=== PATIENT | male | born 1950 ===

== ENCOUNTER 2017-09-15 06:32 | Observation (INO) | payer MEDICARE, OTHER ==
[2017-09-15 06:32] VITALS: PULSE 87
[2017-09-15] MEDS ORDERED: Albuterol-Ipratrop 3 mg / 0.5 (3 ml) UD ONE ×4 (06:41→12:40)
[2017-09-15] MEDS ORDERED: MethylPREDNISolone 40 mg Vial IVP STA (07:21)
--- NOTE | 2017-09-15 07:25 | C.PDOC ---
History Of Present Illness 67 y/o M c PMHx asthma p/w shortness of breath x 1 week. Patient states it began with fever and cough. Fever has since resolved. Cough productive of white sputum, feels congested in chest. Patient denies chest pain, nausea, vomiting, leg swelling. States admitted many times for asthma, never intubated. Time Seen by Provider: 09/15/17 07:11 Chief Complaint (Nursing): Shortness Of Breath Past Medical History Vital Signs: Last Vital Signs Temp 98.6 F 09/15/17 06:44 Pulse 89 09/15/17 09:38 Resp 20 09/15/17 09:38 BP 137/76 09/15/17 09:38 Pulse Ox 95 09/15/17 09:38 - Medical History PMH: Asthma, Atrial Fibrillation, CHF, COPD, HTN Denies: Chronic Kidney Disease Surgical History: Pacemaker Family History: States: No Known Family Hx - Social History Hx Alcohol Use: No Hx Substance Use: No - Immunization History Hx Tetanus Toxoid Vaccination: No Hx Influenza Vaccination: No Hx Pneumococcal Vaccination: No Review Of Systems Except As Marked, All Systems Reviewed And Found Negative. Cardiovascular: Negative for: Chest Pain Gastrointestinal: Negative for: Vomiting Physical Exam - Physical Exam Additional Physical Exam Comments: Gen: NAD Head: NC/AT Eyes: PERRL ENT: MMM. No pharyngeal erythema or exudates Neck: Supple Chest: No tenderness CV: Regular rate Lungs: Tachypneic. Diffuse wheezing. Abd: Soft, distended Back: No CVA tenderness Extremities: No lower leg edema Skin: No rash Neuro: Alert, no focal deficit ED Course And Treatment - Laboratory Results Result Diagrams: 09/15/17 07:41 09/15/17 08:17 O2 Sat by Pulse Oximetry: 96 Medical Decision Making Medical Decision Making: Differential includes COPD, less likely PNA, CHF, ACS. Treat with duonebs x 3 and steroids. Check CXR to rule out PNA. EKG Sinus rhythm, 100 bpm, PVCs. No ST elevations. CXR IMPRESSION: No active pulmonary disease. Mild cardiomegaly and mild pulmonary venous congestion. Patient feels breathing is improved but continues to feel short of breath. Pulse oximetry at 94%. Called Dr. Tuttle for further observation and continuous nebulizer treatments. Disposition Discussed With : Floyd Tuttle - Disposition Disposition: HOSPITALIZED Disposition Time: 09:15 Condition: FAIR Forms: [facility] ([place]) - Clinical Impression Clinical Impression: COPD exacerbation
[2017-09-15] MEDS: Albuterol-Ipratrop 3 mg / 0.5 (3 ml) UD IH SCH ×3 (07:37→08:16)
[2017-09-15 07:47] LABS: BASO # 0.1 K/uL (0.0-0.2); BASO % 0.6 % (0.0-2.0); EOS # 0.5 K/uL (0.0-0.7); EOS % 3.6 % (0.0-4.0); HEMOGLOBIN 14.3 g/dL (12.0-18.0); LYMPH # 1.8 K/uL (1.0-4.3); LYMPH % 13.8 % (20.0-40.0); MEAN CELL VOLUME 90.1 fL (80.0-94.0); MEAN CORPUSCULAR HEMOGLOBIN 31.5 pg (27.0-31.0); MEAN CORPUSCULAR HGB CONC 34.9 g/dL (33.0-37.0); MEAN PLATELET VOLUME 8.2 fL (7.2-11.7); MONO % 7.9 % (0.0-10.0); NEUT # 9.5 K/uL (1.8-7.0); NEUT % 74.1 % (50.0-75.0); RBC 4.55 Mil/uL (4.40-5.90); RED CELL DISTRIBUTION WIDTH 13.9 % (11.5-14.5); WHITE BLOOD COUNT 12.9 K/uL (4.8-10.8)
--- NOTE | 2017-09-15 08:35 | RAD ---
HISTORY: Cough and dyspnea COMPARISON: 11/18/2015. FINDINGS: LUNGS: The lungs are well inflated. There is mild pulmonary venous congestion. No focal consolidation. PLEURA: No significant pleural effusion identified, no pneumothorax apparent. CARDIOVASCULAR: There is mild cardiomegaly. There is stable position of a left-sided AICD. OSSEOUS STRUCTURES: No significant abnormalities. VISUALIZED UPPER ABDOMEN: Normal. OTHER FINDINGS: None. IMPRESSION: No active pulmonary disease. Mild cardiomegaly and mild pulmonary venous congestion.
[2017-09-15 08:45] LABS: ALB/GLOB RATIO 1.1 (1.0-2.1); ALBUMIN 3.9 g/dL (3.5-5.0); ALT/SGPT 20 U/L (21-72); AST/SGOT 33 U/L (17-59); BLOOD UREA NITROGEN 15 mg/dL (9-20); CALCIUM 8.8 mg/dl (8.6-10.4); GFR AFRICAN-AMERICAN > 60; GFR NON-AFRICAN AMERICAN 55
[2017-09-15] MEDS ORDERED: Potassium Chloride 20 mEq ER Tab PO STA (08:48)
[2017-09-15 08:56] LABS: CK-MB 1.44 ng/mL (0.0-3.38)
[2017-09-15] MEDS ORDERED: Potassium Chloride 20 mEq 100 ML ONE (08:59)
[2017-09-15] MEDS ORDERED: Potassium Chloride 20 mEq ER Tab PO ONE (08:59)
--- NOTE | 2017-09-15 10:33 | CP.PCM.HP ---
<Sheeba Kelley - Last Filed: 09/15/17 15:45> History of Present Illness - History of Present Illness History of Present Illness: CC: shortness of breath HPI: Patient is a 67 year old male with past medical history CHF, pacemaker, COPD, asthma, HTN, HLD, hyperthyroidism, and DM complaining of dyspnea and cough for the last week and a half. He came for evaluation today because his shortness of breath has been worsening. Patient has been coughing up white sputum. Denies hemoptysis. Patient has been using his rescue inhaler nearly every hour and nebulizer treatments BID in addition to home oxygen. The patient 's symptoms are worse at night, is unable to sleep flat and uses one pillow at night. Patient can walk about a quarter of a block before he becomes short of breath. Patient reports subjective fevers and sweating at night, uses a fan to sleep at night. 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 Patient currently denies chest pain , palpitations, abdominal pain, n/v, headaches, leg pain/swelling, hemoptysis, dysuria, diarrhea/constipation. PMD: Dr. Tuttle Community Service Officer: Dr. Webber PMH: COPD, asthma, HTN, HLD, hyperthyroidism, and DM PSH: pacemaker 15 years ago, hand surgery 50 years ago Family: Sister of valvular disease at 30y. Brother of [place] at an old age. Daughter has valvular disease. Social: Patient smoked 2 ppd x 50y, quit 6-10 years ago. Patient drank liquor enough to get him drunk once a week, quit 10 years ago. Patient reported daily marijuana use, quit 10 years ago Allergies: Penicillin (told to him by his mother when he was young, unsure what his reaction will be) Medications: Duoneb, Codarone 100mg po daily, Xarelto 15mg po daily, Entresto 45 -51mg po daily, Lasix 40mg po tid, Zebeta 5mg po daily, eplerenone 25mg po daily , Lipitor 40mg po daily, Protonix 40mg po daily, lantus 20units sc daily, synthroid 25mcg daily Present on Admission - Present on Admission Any Indicators Present on Admission: Yes History of Uncontrolled Diabetes: Yes Review of Systems - Constitutional Constitutional: absent: Chills, Fever, Headache, Weakness - EENT Eyes: absent: Change in Vision Ears: absent: Dizziness - Cardiovascular Cardiovascular: Dyspnea, Dyspnea on Exertion. absent: Chest Pain, Edema, Palpitations, Rapid Heart Rate - Respiratory Respiratory: Cough, Dyspnea, Dyspnea on Exertion, Change in Mucous Color (white) . absent: Hemoptysis, Pain with Coughing - Gastrointestinal Gastrointestinal: absent: Abdominal Pain, Constipation, Diarrhea, Nausea, Vomiting - Genitourinary Genitourinary: absent: Dysuria, Hematuria, Pyuria - Integumentary Integumentary: absent: Swelling - Neurological Neurological: absent: Dizziness, Headaches - Endocrine Endocrine: absent: Fatigue, Palpitations Past Patient History - Infectious Disease Hx of Infectious Diseases: None - Past Medical History & Family History Past Medical History?: Yes - Past Social History Smoking Status: Former Smoker - CARDIAC Hx Atrial Fibrillation: Yes Hx Congestive Heart Failure: Yes Hx Hypertension: Yes Hx Pacemaker: Yes - PULMONARY Hx Asthma: Yes Hx Chronic Obstructive Pulmonary Disease (COPD): Yes - NEUROLOGICAL Hx Neurological Disorder: No - HEENT Hx HEENT Problems: No - RENAL Hx Chronic Kidney Disease: No - ENDOCRINE/METABOLIC Hx Endocrine Disorders: Yes Hx Diabetes Mellitus Type 2: Yes - HEMATOLOGICAL/ONCOLOGICAL Hx Blood Disorders: No - INTEGUMENTARY Hx Dermatological Problems: No - MUSCULOSKELETAL/RHEUMATOLOGICAL Hx Musculoskeletal Disorders: No Hx Falls: No - GASTROINTESTINAL Hx Gastrointestinal Disorders: No - GENITOURINARY/GYNECOLOGICAL Hx Genitourinary Disorders: No - PSYCHIATRIC Hx Substance Use: No - SURGICAL HISTORY Hx Surgeries: Yes Other/Comment: Pacemaker insertion - ANESTHESIA Hx Anesthesia: Yes Hx Anesthesia Reactions: No Meds Allergies/Adverse Reactions: Allergies Allergy/AdvReac Type Severity Reaction Status Date / Time Penicillins Allergy Verified 09/15/17 06:47 Physical Exam - Constitutional Appears: No Acute Distress - Head Exam Head Exam: ATRAUMATIC, NORMAL INSPECTION - Eye Exam Eye Exam: EOMI, Normal appearance, PERRL - ENT Exam ENT Exam: Mucous Membranes Moist - Respiratory Exam Respiratory Exam: Decreased Breath Sounds. absent: Rales, Rhonchi, Wheezes - Cardiovascular Exam Cardiovascular Exam: REGULAR RHYTHM, +S1, +S2 - GI/Abdominal Exam GI & Abdominal Exam: Normal Bowel Sounds, Soft. absent: Distended, Firm, Tenderness Additional comments: obese - Extremities Exam Extremities exam: Positive for: normal inspection, pedal pulses present. Negative for: pedal edema, tenderness - Neurological Exam Neurological exam: Alert, Oriented x3 - Psychiatric Exam Psychiatric exam: Normal Affect, Normal Mood - Skin Skin Exam: Dry, Intact, Normal Color, Warm Results - Vital Signs Recent Vital Signs: Last Vital Signs Temp 98.6 F 09/15/17 06:44 Pulse 89 09/15/17 09:38 Resp 20 09/15/17 09:38 BP 137/76 09/15/17 09:38 Pulse Ox 96 09/15/17 09:43 - Labs Result Diagrams: 09/15/17 07:41 09/15/17 08:17 Labs: Laboratory Results - last 24 hr 09/15/17 09/15/17 07:41 08:17 WBC 12.9 H RBC 4.55 Hgb 14.3 Hct 41.0 MCV 90.1 D MCH 31.5 H MCHC 34.9 RDW 13.9 Plt Count 329 D MPV 8.2 Neut % (Auto) 74.1 Lymph % (Auto) 13.8 L [place] % (Auto) 7.9 Eos % (Auto) 3.6 Baso % (Auto) 0.6 Neut # (Auto) 9.5 H Lymph # (Auto) 1.8 [place] # (Auto) 1.0 H Eos # (Auto) 0.5 Baso # (Auto) 0.1 Sodium 143 Potassium 3.2 L Chloride 101 Carbon Dioxide 29 Anion Gap 16 BUN 15 Creatinine 1.3 Est GFR ( Amer) > 60 Est GFR (Non-Af Amer) 55 Random Glucose 152 H Calcium 8.8 Total Bilirubin 0.2 AST 33 ALT 20 L D Alkaline Phosphatase 73 Total Creatine Kinase 180 H CK-MB (Mass) 1.44 Troponin I 0.0210 Total Protein 7.5 Albumin 3.9 Globulin 3.6 Albumin/Globulin Ratio 1.1 Assessment & Plan (1) Dyspnea Assessment and Plan: CHF exacerbation vs. COPD CXR: mild cardiomegaly, mild pulmonary venous congestion In the ED, was given nebulizer x3, solu-medrol 125mg. Troponin: 0.021, f/u x2 BNP: 2009 TSH/Free T4: 4.56, 9.63 Echo: f/u results Cardiology consulted, Dr. Graves; help appreciated Medication/Management: - Duonebs Q4 - Solu-medrol 40mg IV TID - Lasix 40mg IV BID - Spironolactone 25mg PO daily (home medication: eplerenone 25mg po daily) - Crestor 20mg PO HS (home medication: atorvastatin 40mg PO HS) - Continue home medication: amiodarone 100mg po daily, bisoprolol 5mg po daily, Entresto 1 tab PO BID - CXR (repeat in AM, 09/16): f/u results - O2 via nc prn Status: Acute (2) Afib Assessment and Plan: Admitted to telemetry, continue to monitor Continue home medication: Bisoprolol 5mg PO daily Cardiology consulted, Dr. Graves. Help appreciated Status: Acute (3) Diabetes mellitus Assessment and Plan: A1c: 7.5 Continue home insulin: Lantus 20units QAM ISS Hypoglycemic protocol Accuchecks Crestor 20mg PO HS Status: Chronic (4) HTN (hypertension) Assessment and Plan: Admitted to telemetry Cardiology consulted, Dr. Graves. Help appreciated Continue home medication: amiodarone 100mg po daily, bisoprolol 5mg po daily, Entresto 1 tab PO BID Status: Chronic (5) Prophylactic measure Assessment and Plan: DVT: Continue home medication, Xarelto 15mg PO daily GI: Protonix 40mg PO daily Heart healthy diet Status: Acute <Tony Jauregui H - Last Filed: 09/15/17 17:31> Results - Vital Signs Recent Vital Signs: Last Vital Signs Temp 97.9 F 09/15/17 16:02 Pulse 94 H 09/15/17 16:29 Resp 20 09/15/17 16:02 BP 153/89 H 09/15/17 16:02 Pulse Ox 96 09/15/17 16:02 - Labs Result Diagrams: 09/15/17 07:41 09/15/17 08:17 Labs: Laboratory Results - last 24 hr 09/15/17 09/15/17 09/15/17 07:41 08:17 11:56 WBC 12.9 H RBC 4.55 Hgb 14.3 Hct 41.0 MCV 90.1 D MCH 31.5 H MCHC 34.9 RDW 13.9 Plt Count 329 D MPV 8.2 Neut % (Auto) 74.1 Lymph % (Auto) 13.8 L [place] % (Auto) 7.9 Eos % (Auto) 3.6 Baso % (Auto) 0.6 Neut # (Auto) 9.5 H Lymph # (Auto) 1.8 [place] # (Auto) 1.0 H Eos # (Auto) 0.5 Baso # (Auto) 0.1 Sodium 143 Potassium 3.2 L Chloride 101 Carbon Dioxide 29 Anion Gap 16 BUN 15 Creatinine 1.3 Est GFR ( Amer) > 60 Est GFR (Non-Af Amer) 55 POC Glucose (mg/dL) Random Glucose 152 H Hemoglobin A1c 7.5 H Calcium 8.8 Total Bilirubin 0.2 AST 33 ALT 20 L D Alkaline Phosphatase 73 Total Creatine Kinase 180 H CK-MB (Mass) 1.44 Troponin I 0.0210 NT-Pro-B Natriuret Pep 2010 H Total Protein 7.5 Albumin 3.9 Globulin 3.6 Albumin/Globulin Ratio 1.1 Thyroxine (T4) 9.63 TSH 3rd Generation 4.56 09/15/17 09/15/17 09/15/17 12:22 15:21 15:21 WBC RBC Hgb Hct MCV MCH MCHC RDW Plt Count MPV Neut % (Auto) Lymph % (Auto) [place] % (Auto) Eos % (Auto) Baso % (Auto) Neut # (Auto) Lymph # (Auto) [place] # (Auto) Eos # (Auto) Baso # (Auto) Sodium Potassium Chloride Carbon Dioxide Anion Gap BUN Creatinine Est GFR ( Amer) Est GFR (Non-Af Amer) POC Glucose (mg/dL) 183 H Random Glucose Hemoglobin A1c Calcium Total Bilirubin AST ALT Alkaline Phosphatase Total Creatine Kinase 193 H CK-MB (Mass) 1.31 Troponin I 0.0130 NT-Pro-B Natriuret Pep Total Protein Albumin Globulin Albumin/Globulin Ratio Thyroxine (T4) 9.85 TSH 3rd Generation 1.42 09/15/17 16:53 WBC RBC Hgb Hct MCV MCH MCHC RDW Plt Count MPV Neut % (Auto) Lymph % (Auto) [place] % (Auto) Eos % (Auto) Baso % (Auto) Neut # (Auto) Lymph # (Auto) [place] # (Auto) Eos # (Auto) Baso # (Auto) Sodium Potassium Chloride Carbon Dioxide Anion Gap BUN Creatinine Est GFR ( Amer) Est GFR (Non-Af Amer) POC Glucose (mg/dL) 338 H Random Glucose Hemoglobin A1c Calcium Total Bilirubin AST ALT Alkaline Phosphatase Total Creatine Kinase CK-MB (Mass) Troponin I NT-Pro-B Natriuret Pep Total Protein Albumin Globulin Albumin/Globulin Ratio Thyroxine (T4) TSH 3rd Generation Attending/Attestation - Attestation I have personally seen and examined this patient.: Yes I have fully participated in the care of the patient.: Yes I have reviewed all pertinent clinical information: Yes Notes (Text): Medical attending: Patient was seen and examined by me. Agree with the above note by the resident As mentioned above this is a patient with a very significant cardiac history who comes to the hospital with shortness of breath. By the time we saw the patient in the ER he reported some improvement from the interventions of the ER but explained he was still short of breath. CXRAY suggest he does have some pulmonary congestion. Will place on IV lasix and see how he does, repeat portable film tomorrow. Because of his cardiac history will also need to consult his bowling pin refinisher as well. There is also a history of COPD, will place on IV solumedrol as well. Tony Jauregui
[2017-09-15 12:22] LABS: B-TYPE NATRIURETIC PEPTIDE 2010 pg/mL (0-900)
[2017-09-15 12:29] LABS: T4 9.63 ug/dL (5.5-11.0)
[2017-09-15] MEDS: Albuterol-Ipratrop 3 mg / 0.5 (3 ml) UD INH SCH ×4 (12:52→23:45)
[2017-09-15 15:55] LABS: CK-MB 1.31 ng/mL (0.0-3.38); TROPONIN I 0.013 ng/mL (0.00-0.120)
[2017-09-15 16:00] LABS: T4 9.85 ug/dL (5.5-11.0)
[2017-09-15 16:06] VITALS: RESP 20
[2017-09-15] MEDS: Sacubitril/Valsartan 49-51 Tab PO SCH (17:42)
[2017-09-15] MEDS: (Novolin R) Insulin Human Regular 100 units/ml vial SC SCH ×2 (17:44→21:45)
[2017-09-15 21:04] LABS: CK-MB 1.65 ng/mL (0.0-3.38)
[2017-09-15] MEDS: MethylPREDNISolone 40 mg Vial IV SCH (21:50)
[2017-09-16] MEDS: Albuterol-Ipratrop 3 mg / 0.5 (3 ml) UD INH SCH ×5 (03:24→20:19)
[2017-09-16] MEDS: Levothyroxine 25 MCG TAB PO SCH (06:21)
[2017-09-16] MEDS: MethylPREDNISolone 40 mg Vial IV SCH ×3 (06:21→21:07)
--- NOTE | 2017-09-16 08:00 | CP.PCM.PN ---
<Abbey Cardenas - Last Filed: 09/16/17 09:56> Subjective - Date & Time of Evaluation Date of Evaluation: 09/16/17 Time of Evaluation: 07:00 - Subjective Subjective: Medicine Progress Note: Patient was seen and examined at bedside. No acute events overnight. Patient states he is breathing better than when he arrived yesterday. Patient denies chest pain, palpitations, nausea, vomiting, fever, chills, diarrhea or constipation. Objective - Vital Signs/Intake and Output Vital Signs (last 24 hours): Temp Pulse Resp BP Pulse Ox 98.6 F 100 H 20 156/87 H 96 09/16/17 07:00 09/16/17 07:00 09/16/17 07:00 09/16/17 07:00 09/16/17 07:00 - Medications Medications: Current Medications Albuterol/Ipratropium (Duoneb 3 Mg/0.5 Mg (3 Ml) Ud) 3 ml INH RQ4 [facility] Last Admin: 09/16/17 03:24 Dose: Not Given Amiodarone HCl (Cordarone) 100 mg PO DAILY [facility] Bisoprolol Fumarate (Zebeta) 5 mg PO DAILY [facility] Furosemide (Lasix) 40 mg IVP Q12 [facility] Last Admin: 09/15/17 21:51 Dose: 40 mg Insulin Glargine (Lantus) 20 unit SC DAILY [facility] Insulin Human Regular (Novolin R) 0 unit SC ACHS [facility] PRN Reason: Protocol Last Admin: 09/15/17 21:45 Dose: Not Given Levothyroxine Sodium (Synthroid) 25 mcg PO DAILY@0630 [facility] Last Admin: 09/16/17 06:21 Dose: 25 mcg Methylprednisolone (Solu-Medrol) 40 mg IV Q8 [facility] Last Admin: 09/16/17 06:21 Dose: 40 mg Pantoprazole Sodium (Protonix Ec Tab) 40 mg PO DAILY [facility] Rivaroxaban (Xarelto) 15 mg PO DAILY [facility] Rosuvastatin Calcium (Crestor) 20 mg PO HS [facility] Last Admin: 09/15/17 21:50 Dose: 20 mg Sacubitril/Valsartan (Entresto 49 Mg-51 Mg) 1 tab PO BID [facility] Last Admin: 09/15/17 17:42 Dose: 1 tab Spironolactone (Aldactone) 25 mg PO DAILY [facility] - Labs Labs: 06/01/18 07:41 09/15/17 08:17 - Constitutional Appears: No Acute Distress - Head Exam Head Exam: ATRAUMATIC, NORMAL INSPECTION - Eye Exam Eye Exam: EOMI, Normal appearance - ENT Exam ENT Exam: Mucous Membranes Moist - Respiratory Exam Respiratory Exam: Decreased Breath Sounds, NORMAL BREATHING PATTERN - GI/Abdominal Exam GI & Abdominal Exam: Soft, Normal Bowel Sounds. absent: Tenderness - Extremities Exam Extremities Exam: Normal Inspection. absent: Pedal Edema - Neurological Exam Neurological Exam: Alert, Awake, Oriented x3 - Psychiatric Exam Psychiatric exam: Anxious - Skin Skin Exam: Normal Color Assessment and Plan - Assessment and Plan (Free Text) Assessment: Dyspnea CHF exacerbation vs. COPD Chest Xray (09/15/17): mild cardiomegaly, mild pulmonary venous congestion Chest Xray (09/16/17): mild to moderate venous congestion. Small left pleural effusion. Right hilar prominence. Biapical pleural thickening with upper lobe granulomatous changes. Left sideded pacemaker. Mild cardiomegaly. In the ED, was given nebulizer x3, solu-medrol 125mg. Troponin: negative x3 BNP: 2009 TSH/Free T4: 4.56, 9.63 Echo: f/u results Cardiology consulted, Dr. Graves --> help appreciated Medication/Management: - Duonebs Q4 - Solu-medrol 20mg IV TID - Lasix 40mg IV BID - Spironolactone 25mg PO daily (home medication: eplerenone 25mg po daily) - Crestor 20mg PO HS (home medication: atorvastatin 40mg PO HS) - Continue home medication: amiodarone 100mg po daily, bisoprolol 5mg po daily, Entresto 1 tab PO BID - O2 via nc prn History of COPD - See first assessment History of CHF - See first assessment History of Afib Admitted to telemetry, continue to monitor Continue home medication: * Bisoprolol 5mg PO daily * Amiodarone 100mg po daily * Xarelto 15mg PO daily --> not given on 09/15/17 --> nursing communication placed to please give patient his medications. Cardiology consulted, Dr. Graves --> Help appreciated History of Diabetes mellitus A1c: 7.5 Continue home insulin: * Lantus 20units QAM * ISS * Crestor 20mg PO HS Hypoglycemic protocol Accuchecks History of HTN Admitted to telemetry Cardiology consulted, Dr. Graves. Help appreciated Continue home medication: * bisoprolol 5mg po daily * Entresto 1 tab PO BID Prophylaxis DVT: Continue home medication, Xarelto 15mg PO daily GI: Protonix 40mg PO daily Heart healthy diet Case discussed with Dr. Shania Cardenas PGY-1 <Tony Jauregui H - Last Filed: 09/16/17 12:09> Objective - Vital Signs/Intake and Output Vital Signs (last 24 hours): Temp Pulse Resp BP Pulse Ox 98.6 F 100 H 20 156/87 H 96 09/16/17 07:00 09/16/17 07:00 09/16/17 07:00 09/16/17 07:00 09/16/17 07:00 - Medications Medications: Current Medications Albuterol/Ipratropium (Duoneb 3 Mg/0.5 Mg (3 Ml) Ud) 3 ml INH RQ4 [facility] Last Admin: 09/16/17 11:32 Dose: 3 ml Amiodarone HCl (Cordarone) 100 mg PO DAILY [facility] Last Admin: 09/16/17 09:11 Dose: 100 mg Bisoprolol Fumarate (Zebeta) 5 mg PO DAILY [facility] Last Admin: 09/16/17 09:11 Dose: 5 mg Furosemide (Lasix) 40 mg IVP Q12 [facility] Last Admin: 09/15/17 21:51 Dose: 40 mg Insulin Glargine (Lantus) 20 unit SC DAILY [facility] Last Admin: 09/16/17 09:19 Dose: 20 units Insulin Human Regular (Novolin R) 0 unit SC ACHS [facility] PRN Reason: Protocol Last Admin: 09/16/17 08:24 Dose: 5 unit Levothyroxine Sodium (Synthroid) 25 mcg PO DAILY@0630 [facility] Last Admin: 09/16/17 06:21 Dose: 25 mcg Methylprednisolone (Solu-Medrol) 20 mg IV Q8 [facility] Pantoprazole Sodium (Protonix Ec Tab) 40 mg PO DAILY [facility] Last Admin: 09/16/17 09:11 Dose: 40 mg Rivaroxaban (Xarelto) 15 mg PO DAILY [facility] Last Admin: 09/16/17 09:11 Dose: 15 mg Rosuvastatin Calcium (Crestor) 20 mg PO HS [facility] Last Admin: 09/15/17 21:50 Dose: 20 mg Sacubitril/Valsartan (Entresto 49 Mg-51 Mg) 1 tab PO BID [facility] Last Admin: 09/16/17 09:11 Dose: 1 tab Spironolactone (Aldactone) 25 mg PO DAILY [facility] Last Admin: 09/16/17 09:11 Dose: 25 mg - Labs Labs: 09/15/17 07:41 09/15/17 08:17 Attending/Attestation - Attestation I have personally seen and examined this patient.: Yes I have fully participated in the care of the patient.: Yes I have reviewed all pertinent clinical information, including history, physical exam and plan: Yes Notes (Text): 09/16/17 12:04 Medical attending: Patient was seen and examined by me. Agree with the above note by the resident I spoke with Dr Florencia Carlin who is covering for cardiology today. We did have the patient stand and walk with us today, he did ok. He denied shortness of breath or chest pain when walking. On the telemetry his HR was in the mid 90s as well. Echo was done this morning. Pending results. He did not get his Xarelto last night, I spoke with nursing and he will be getting his anticoagulation. Will continue with lasix for now. A repeat CXRAY was done and it showed still having some pulmonary congestion. We replaced his K as well. He refused lab work this AM but we explained it is important for follow up labs. Patient reports that overall he feels much better than previous. Maybe he will be able to be discharged soon. thank you Tony Jauregui
[2017-09-16] MEDS: (Novolin R) Insulin Human Regular 100 units/ml vial SC SCH ×4 (08:24→22:45)
[2017-09-16] MEDS: Sacubitril/Valsartan 49-51 Tab PO SCH ×2 (09:11→17:07)
[2017-09-16] MEDS: Pantoprazole 40 mg EC Tab PO SCH (09:11)
[2017-09-16] MEDS: (Lantus) Insulin Glargine, Recombinant SC SCH (09:19)
--- NOTE | 2017-09-16 09:39 | RAD ---
Chest x-ray single frontal view History: CHF follow-up. Comparison: 09/15/2017 Findings: Mild to moderate venous congestion. Small left pleural effusion. Right hilar prominence. Biapical pleural thickening with upper lobe granulomatous changes. Left-sided pacemaker. Mild cardiomegaly. Calcification at the aortic knob. Impression: Mild to moderate venous congestion. Small left pleural effusion. Right hilar prominence. Biapical pleural thickening with upper lobe granulomatous changes. Left-sided pacemaker. Mild cardiomegaly.
[2017-09-16] MEDS ORDERED: EPLERENONE 25 MG PO SCH ×2 (10:00)
[2017-09-16] MEDS ORDERED: INSULIN GLARGINE HUM REC ANLOG 20 UNIT SQ SCH (10:00)
[2017-09-16 12:33] LABS: ALB/GLOB RATIO 1.1 (1.0-2.1); ALT/SGPT 18 U/L (21-72); AST/SGOT 41 U/L (17-59); BLOOD UREA NITROGEN 24 mg/dL (9-20); CALCIUM 9.8 mg/dl (8.6-10.4); GFR AFRICAN-AMERICAN > 60; GFR NON-AFRICAN AMERICAN 50
[2017-09-17] MEDS: Albuterol-Ipratrop 3 mg / 0.5 (3 ml) UD INH SCH ×4 (00:03→11:53)
[2017-09-17] MEDS: Levothyroxine 25 MCG TAB PO SCH (06:12)
[2017-09-17] MEDS: MethylPREDNISolone 40 mg Vial IV SCH (06:13)
[2017-09-17 08:05] VITALS: TEMP 97.5; O2SAT 98
[2017-09-17 08:10] LABS: BASO % 0.2 % (0.0-2.0); HEMOGLOBIN 13.9 g/dL (12.0-18.0); LYMPH # 1.3 K/uL (1.0-4.3); MEAN CORPUSCULAR HEMOGLOBIN 31.1 pg (27.0-31.0); MEAN CORPUSCULAR HGB CONC 33.7 g/dL (33.0-37.0); MEAN PLATELET VOLUME 8.1 fL (7.2-11.7); MONO # 1.5 K/uL (0.0-0.8); MONO % 5.9 % (0.0-10.0); NEUT # 23.2 K/uL (1.8-7.0); NEUT % 88.9 % (50.0-75.0); NRBC % 0.1 % (0.0-2.0); PLATELET COUNT 322 K/uL (130-400); RBC 4.46 Mil/uL (4.40-5.90); RED CELL DISTRIBUTION WIDTH 14.1 % (11.5-14.5)
[2017-09-17 08:15] LABS: MEAN CELL VOLUME 92.3 fL (80.0-94.0); WHITE BLOOD COUNT 26.1 K/uL (4.8-10.8)
[2017-09-17] MEDS: (Novolin R) Insulin Human Regular 100 units/ml vial SC SCH ×2 (08:15→12:38)
[2017-09-17 08:33] LABS: ALB/GLOB RATIO 1.2 (1.0-2.1); ALBUMIN 3.9 g/dL (3.5-5.0); ALT/SGPT 26 U/L (21-72); AST/SGOT 53 U/L (17-59); BLOOD UREA NITROGEN 25 mg/dL (9-20); CALCIUM 9.3 mg/dl (8.6-10.4); GFR AFRICAN-AMERICAN > 60; GFR NON-AFRICAN AMERICAN 50
[2017-09-17 08:47] LABS: LYMPHOCYTE 2 % (20-40); MONOCYTE 2 % (0-10); NEUTROPHIL 96 % (50-75); PLATELET ESTIMATE NORMAL (NORMAL); TOTAL CELLS COUNTED 100
--- NOTE | 2017-09-17 09:27 | CP.PCM.DIS ---
<Abbey Cardenas - Last Filed: 09/17/17 09:22> Provider - Provider Date of Admission: 09/15/17 09:41 Attending physician: Tony Jauregui DO Time Spent in preparation of Discharge (in minutes): 40 Hospital Course - Lab Results Lab Results: Most Recent Lab Values WBC 26.1 K/uL (4.8-10.8) H D 09/17/17 07:56 RBC 4.46 Mil/uL (4.40-5.90) 09/17/17 07:56 Hgb 13.9 g/dL (12.0-18.0) 09/17/17 07:56 Hct 41.2 % (35.0-51.0) 09/17/17 07:56 MCV 92.3 fL (80.0-94.0) D 09/17/17 07:56 MCH 31.1 pg (27.0-31.0) H 09/17/17 07:56 MCHC 33.7 g/dL (33.0-37.0) 09/17/17 07:56 RDW 14.1 % (11.5-14.5) 09/17/17 07:56 Plt Count 322 K/uL (130-400) 09/17/17 07:56 MPV 8.1 fL (7.2-11.7) 09/17/17 07:56 Neut % (Auto) 88.9 % (50.0-75.0) H 09/17/17 07:56 Lymph % (Auto) 5.0 % (20.0-40.0) L 09/17/17 07:56 [place] % (Auto) 5.9 % (0.0-10.0) 09/17/17 07:56 Eos % (Auto) 0.0 % (0.0-4.0) 09/17/17 07:56 Baso % (Auto) 0.2 % (0.0-2.0) 09/17/17 07:56 Neut # (Auto) 23.2 K/uL (1.8-7.0) H 09/17/17 07:56 Lymph # (Auto) 1.3 K/uL (1.0-4.3) 09/17/17 07:56 [place] # (Auto) 1.5 K/uL (0.0-0.8) H 09/17/17 07:56 Eos # (Auto) 0.0 K/uL (0.0-0.7) 09/17/17 07:56 Baso # (Auto) 0.0 K/uL (0.0-0.2) 09/17/17 07:56 Neutrophils % (Manual) 96 % (50-75) H 09/17/17 07:56 Lymphocytes % (Manual) 2 % (20-40) L 09/17/17 07:56 Monocytes % (Manual) 2 % (0-10) 09/17/17 07:56 Platelet Estimate Normal (NORMAL) 09/17/17 07:56 RBC Morphology Normal 09/17/17 07:56 Sodium 141 mmol/L (132-148) 09/17/17 07:56 Potassium 5.2 mmol/L (3.6-5.2) 09/17/17 07:56 Chloride 99 mmol/L (98-107) 09/17/17 07:56 Carbon Dioxide 31 mmol/L (22-30) H 09/17/17 07:56 Anion Gap 17 (10-20) 09/17/17 07:56 BUN 25 mg/dL (9-20) H 09/17/17 07:56 Creatinine 1.4 mg/dL (0.8-1.5) 09/17/17 07:56 Est GFR ( Amer) > 60 09/17/17 07:56 Est GFR (Non-Af Amer) 50 09/17/17 07:56 POC Glucose (mg/dL) 369 mg/dL (65-110) H 09/17/17 06:33 Random Glucose 324 mg/dL (75-110) H 09/17/17 07:56 Hemoglobin A1c 7.5 % (4.2-6.5) H 09/15/17 11:56 Calcium 9.3 mg/dl (8.6-10.4) 09/17/17 07:56 Phosphorus 4.0 mg/dL (2.5-4.5) 09/17/17 07:56 Magnesium 2.4 mg/dL (1.6-2.3) H 09/17/17 07:56 Total Bilirubin 0.2 mg/dL (0.2-1.3) 09/17/17 07:56 AST 53 U/L (17-59) 09/17/17 07:56 ALT 26 U/L (21-72) 09/17/17 07:56 Alkaline Phosphatase 91 U/L (38-126) 09/17/17 07:56 Total Creatine Kinase 244 U/L (55-170) H 09/15/17 20:28 CK-MB (Mass) 1.65 ng/mL (0.0-3.38) 09/15/17 20:28 Troponin I < 0.0120 ng/mL (0.00-0.120) 09/15/17 20:28 NT-Pro-B Natriuret Pep 2010 pg/mL (0-900) H 09/15/17 08:17 Total Protein 7.1 g/dL (6.3-8.3) 09/17/17 07:56 Albumin 3.9 g/dL (3.5-5.0) 09/17/17 07:56 Globulin 3.2 gm/dL (2.2-3.9) 09/17/17 07:56 Albumin/Globulin Ratio 1.2 (1.0-2.1) 09/17/17 07:56 Thyroxine (T4) 9.85 ug/dL (5.5-11.0) 09/15/17 15:21 TSH 3rd Generation 1.42 mIU/L (0.46-4.68) 09/15/17 15:21 - Hospital Course Hospital Course: HPI: Patient is a 67 year old male with past medical history CHF, pacemaker, COPD, asthma, HTN, HLD, hyperthyroidism, and DM complaining of dyspnea and cough for the last week and a half. He came for evaluation today because his shortness of breath has been worsening. Patient has been coughing up white sputum. Denies hemoptysis. Patient has been using his rescue inhaler nearly every hour and nebulizer treatments BID in addition to home oxygen. The patient 's symptoms are worse at night, is unable to sleep flat and uses one pillow at night. Patient can walk about a quarter of a block before he becomes short of breath. Patient reports subjective fevers and sweating at night, uses a fan to sleep at night. 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 Patient currently denies chest pain , palpitations, abdominal pain, n/v, headaches, leg pain/swelling, hemoptysis, dysuria, diarrhea/constipation. PMD: Dr. Tuttle Communications Agent: Dr. Webber PMH: COPD, asthma, HTN, HLD, hyperthyroidism, and DM PSH: pacemaker 15 years ago, hand surgery 50 years ago Family: Sister of valvular disease at 30y. Brother of CT at an old age. Daughter has valvular disease. Social: Patient smoked 2 ppd x 50y, quit 6-10 years ago. Patient drank liquor enough to get him drunk once a week, quit 10 years ago. Patient reported daily marijuana use, quit 10 years ago Allergies: Penicillin (told to him by his mother when he was young, unsure what his reaction will be) Medications: Duoneb, Codarone 100mg po daily, Xarelto 15mg po daily, Entresto 45 -51mg po daily, Lasix 40mg po tid, Zebeta 5mg po daily, eplerenone 25mg po daily , Lipitor 40mg po daily, Protonix 40mg po daily, lantus 20units sc daily, synthroid 25mcg daily Hospital Course: Patient was admitted for shortness of breath to telemetry. Patient was given Lasix 40mg IV BID and started on Solu-Medrol 20mg IV TID. Patient's home medications were restarted and cardiology was consulted. Patient was seen and examined at bedside. Patient stated he was breathing significantly better than when he was admitted. Patient denies chest pain, palpitations, nausea, vomiting , fever, chills, diarrhea or constipation. Images: Chest Xray (09/15/17): mild cardiomegaly, mild pulmonary venous congestion Chest Xray (09/16/17): mild to moderate venous congestion. Small left pleural effusion. Right hilar prominence. Biapical pleural thickening with upper lobe granulomatous changes. Left sideded pacemaker. Mild cardiomegaly. Patient is stable for discharge home. Please continue home medications. Please follow up with primary care doctor and furnace operator in 1-2 weeks. This is a summary of the patient's hospital course. Please refer to the EMR for a complete record. Discharge Exam - Head Exam Head Exam: ATRAUMATIC, NORMAL INSPECTION - Eye Exam Eye Exam: EOMI, Normal appearance - ENT Exam ENT Exam: Mucous Membranes Moist - Respiratory Exam Respiratory Exam: Clear to PA & Lateral, NORMAL BREATHING PATTERN - Cardiovascular Exam Cardiovascular Exam: REGULAR RHYTHM, +S1, +S2 - GI/Abdominal Exam GI & Abdominal Exam: Normal Bowel Sounds, Soft. absent: Tenderness - Extremities Exam Extremities exam: normal inspection - Neurological Exam Neurological exam: Alert, Oriented x3 - Psychiatric Exam Psychiatric exam: Normal Affect, Normal Mood - Skin Skin Exam: Normal Color Discharge Plan - Discharge Medications Prescriptions: Methylprednisolone [Medrol Dose Pack (21 tabs)] 4 mg PO DAILY #21 mg - Follow Up Plan Condition: FAIR Disposition: HOME/ ROUTINE <Tony Jauregui - Last Filed: 09/17/17 10:24> Provider - Provider Date of Admission: 09/15/17 09:41 Attending physician: Tony Jauregui DO Hospital Course - Lab Results Lab Results: Most Recent Lab Values WBC 26.1 K/uL (4.8-10.8) H D 09/17/17 07:56 RBC 4.46 Mil/uL (4.40-5.90) 09/17/17 07:56 Hgb 13.9 g/dL (12.0-18.0) 09/17/17 07:56 Hct 41.2 % (35.0-51.0) 09/17/17 07:56 MCV 92.3 fL (80.0-94.0) D 09/17/17 07:56 MCH 31.1 pg (27.0-31.0) H 09/17/17 07:56 MCHC 33.7 g/dL (33.0-37.0) 09/17/17 07:56 RDW 14.1 % (11.5-14.5) 09/17/17 07:56 Plt Count 322 K/uL (130-400) 09/17/17 07:56 MPV 8.1 fL (7.2-11.7) 09/17/17 07:56 Neut % (Auto) 88.9 % (50.0-75.0) H 09/17/17 07:56 Lymph % (Auto) 5.0 % (20.0-40.0) L 09/17/17 07:56 [place] % (Auto) 5.9 % (0.0-10.0) 09/17/17 07:56 Eos % (Auto) 0.0 % (0.0-4.0) 09/17/17 07:56 Baso % (Auto) 0.2 % (0.0-2.0) 09/17/17 07:56 Neut # (Auto) 23.2 K/uL (1.8-7.0) H 09/17/17 07:56 Lymph # (Auto) 1.3 K/uL (1.0-4.3) 09/17/17 07:56 [place] # (Auto) 1.5 K/uL (0.0-0.8) H 09/17/17 07:56 Eos # (Auto) 0.0 K/uL (0.0-0.7) 09/17/17 07:56 Baso # (Auto) 0.0 K/uL (0.0-0.2) 09/17/17 07:56 Neutrophils % (Manual) 96 % (50-75) H 09/17/17 07:56 Lymphocytes % (Manual) 2 % (20-40) L 09/17/17 07:56 Monocytes % (Manual) 2 % (0-10) 09/17/17 07:56 Platelet Estimate Normal (NORMAL) 09/17/17 07:56 RBC Morphology Normal 09/17/17 07:56 Sodium 141 mmol/L (132-148) 09/17/17 07:56 Potassium 5.2 mmol/L (3.6-5.2) 09/17/17 07:56 Chloride 99 mmol/L (98-107) 09/17/17 07:56 Carbon Dioxide 31 mmol/L (22-30) H 09/17/17 07:56 Anion Gap 17 (10-20) 09/17/17 07:56 BUN 25 mg/dL (9-20) H 09/17/17 07:56 Creatinine 1.4 mg/dL (0.8-1.5) 09/17/17 07:56 Est GFR ( Amer) > 60 09/17/17 07:56 Est GFR (Non-Af Amer) 50 09/17/17 07:56 POC Glucose (mg/dL) 369 mg/dL (65-110) H 09/17/17 06:33 Random Glucose 324 mg/dL (75-110) H 09/17/17 07:56 Hemoglobin A1c 7.5 % (4.2-6.5) H 09/15/17 11:56 Calcium 9.3 mg/dl (8.6-10.4) 09/17/17 07:56 Phosphorus 4.0 mg/dL (2.5-4.5) 09/17/17 07:56 Magnesium 2.4 mg/dL (1.6-2.3) H 09/17/17 07:56 Total Bilirubin 0.2 mg/dL (0.2-1.3) 09/17/17 07:56 AST 53 U/L (17-59) 09/17/17 07:56 ALT 26 U/L (21-72) 09/17/17 07:56 Alkaline Phosphatase 91 U/L (38-126) 09/17/17 07:56 Total Creatine Kinase 244 U/L (55-170) H 09/15/17 20:28 CK-MB (Mass) 1.65 ng/mL (0.0-3.38) 09/15/17 20:28 Troponin I < 0.0120 ng/mL (0.00-0.120) 09/15/17 20:28 NT-Pro-B Natriuret Pep 2010 pg/mL (0-900) H 09/15/17 08:17 Total Protein 7.1 g/dL (6.3-8.3) 09/17/17 07:56 Albumin 3.9 g/dL (3.5-5.0) 09/17/17 07:56 Globulin 3.2 gm/dL (2.2-3.9) 09/17/17 07:56 Albumin/Globulin Ratio 1.2 (1.0-2.1) 09/17/17 07:56 Thyroxine (T4) 9.85 ug/dL (5.5-11.0) 09/15/17 15:21 TSH 3rd Generation 1.42 mIU/L (0.46-4.68) 09/15/17 15:21 Attending/Attestation - Attestation I have personally seen and examined this patient.: Yes I have fully participated in the care of the patient.: Yes I have reviewed all pertinent clinical information, including history, physical exam and plan: Yes Notes (Text): 09/17/17 10:21 Medical attending: Patient was seen and examined by me as well. Agree with the above note by the resident The patient was able to walk in the room without shortness of breath. We also walked him in the hallway as well and he did ok. He denied shortness of breath when walking and denied palpitations and denied chest pain when walking. He denied fevers, denied dizziness, denied headaches. He reports he feels very close to back to normal now. He has been diuresing overnight with the IV lasix We asked him if he needed refills on his home medications. He said he did not. Will discharge with a medrol dose pack He understands he needs to follow up with his primary care physician as well as with his furnace operator. thank you Tony Jauregui
[2017-09-17] MEDS: Pantoprazole 40 mg EC Tab PO SCH (09:30)
[2017-09-17] MEDS: Sacubitril/Valsartan 49-51 Tab PO SCH (09:30)
[2017-09-17 09:31] VITALS: BP 134/79
[2017-09-17] MEDS: (Lantus) Insulin Glargine, Recombinant SC SCH (09:31)
[2017-09-17 10:52] VITALS: PULSE 94
--- NOTE | 2017-09-18 15:23 | CARD ---
APPROVED REPORT EXAM: Two-dimensional and M-mode echocardiogram with Doppler and color Doppler. Other Information Quality : AverageRhythm : NSR INDICATION Dyspnea Atrial Fibrillation Chest Pain Congestive Heart Failure COPD RISK FACTORS Hypertension Hyperlipidemia Diabetes M-Mode DIMENSIONS Left Atrium (MM)4.41 (2.5-4.0cm)IVSd1.21 (0.7-1.1cm) Aortic Root2.77 (2.2-3.7cm)LVDd6.72 (4.0-5.6cm) Aortic Cusp Exc.1.60 (1.5-2.0cm)PWd1.05 (0.7-1.1cm) FS (%) 13 %LVDs5.86 (2.0-3.8cm) LVEF (%)27 (>50%) Aortic Valve AoV Peak Zegyywkd214.8cm/Andreas Peak GR.8mmHg Mitral Valve MV E Qbfzcdfo420.3cm/sMV A Vdaskuup906.4cm/sE/A ratio1.0 TDI E/Lateral E'0.0E/Medial E'0.0 Tricuspid Valve TR Peak Uiecvmaq837wz/sTR Peak Gr.68ohKkDGBS12umPb LEFT VENTRICLE The Left Ventricle is severely dilated. There is normal left ventricular wall thickness. The Ejection Fraction is 25-30%. There is global hypokinesis of the left ventricle. Transmitral Doppler flow pattern is Grade II-pseudonormal filling dynamics. moderately increased la volume index. RIGHT VENTRICLE The right ventricle is normal size. The right ventricular systolic function is normal. ATRIA The left atrium is mildly dilated. The right atrium size is normal. The interatrial septum is intact with no evidence for an atrial septal defect. AORTIC VALVE The aortic valve is normal in structure. No aortic regurgitation is present. MITRAL VALVE The mitral valve is normal in structure. Mitral regurgitation is mild to moderate. TRICUSPID VALVE The tricuspid valve is normal in structure. There is mild tricuspid regurgitation. Right ventricular systolic pressure is estimated at 40 mmHg. There is mild pulmonary hypertension. PULMONIC VALVE The pulmonary valve is normal in structure. There is mild pulmonic valvular regurgitation. GREAT VESSELS The aortic root is normal in size. The IVC is normal in size and collapses >50% with inspiration. PERICARDIAL EFFUSION There is no pericardial effusion. <Conclusion> The Left Ventricle is severely dilated. The Ejection Fraction is 25-30%. There is global hypokinesis of the left ventricle. Transmitral Doppler flow pattern is Grade II-pseudonormal filling dynamics. moderately increased la volume index. The left atrium is mildly dilated. Mitral regurgitation is mild to moderate. There is mild tricuspid regurgitation. Right ventricular systolic pressure is estimated at 40 mmHg. There is mild pulmonary hypertension.
--- NOTE | 2017-09-19 13:43 | CARD ---
APPROVED REPORT EKG Measurement Heart [id number] <Conclusion> Sinus tachycardia with frequent premature ventricular complexes Incomplete left bundle branch block Borderline ECG
== END 2017-09-17 12:10 | disposition home or self-care (01) ==
LOC: C.ER 06:32 → C.9E 09:41 → C.5S 12:45
PROVIDERS: ADMIT Hospitalist; ATTEND Hospitalist
DX: J44.1 Chronic obstructive pulmonary disease with (acute) exacerbation (principal); E11.9 Type 2 diabetes mellitus without complications; E78.5 Hyperlipidemia, unspecified; I11.0 Hypertensive heart disease with heart failure; I48.91 Unspecified atrial fibrillation; I50.9 Heart failure, unspecified; Z95.0 Presence of cardiac pacemaker; Z87.891 Personal history of nicotine dependence; Z79.4 Long term (current) use of insulin
CPT/HCPCS: 36415; 71045; 80053; 82550; 82553; 82948; 83036; 83735; 83880; 84100; 84436; 84443; 84484; 85025; 93306; 94640; 96361; 96374; 96375; 96376; 99285; G0378; J1940; J2920; J3480

== ENCOUNTER 2017-11-21 04:20 | Inpatient (IN) | payer MEDICARE, OTHER ==
[2017-11-21 04:21] VITALS: PULSE 87
--- NOTE | 2017-11-21 04:26 | C.PDOC ---
History Of Present Illness 67 year old male presents to the ED complaining of shortness of breath and chest pain since noon today. He denies any fever, chills. He reports he used his inhaler throughout the day but symptoms worsened. He called EMS and was given 3 sublingual nitroglycerin and notes improvement in ED. 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 Patient was recently admitted to [facility] for CHF and discharged 2 weeks ago. Time Seen by Provider: 11/21/17 04:25 Chief Complaint (Nursing): Chest Pain History Per: Patient History/Exam Limitations: no limitations Onset/Duration Of Symptoms: Days, Waxing/Waning Current Symptoms Are (Timing): Still Present Severity: Mild Pain Scale Rating Of: 3 Quality: "Pain" Past Medical History Reviewed: Historical Data, Nursing Documentation, Vital Signs Vital Signs: Last Vital Signs Temp 97.6 F 11/21/17 04:43 Pulse 94 H 11/21/17 05:24 Resp 18 11/21/17 05:24 BP 116/64 11/21/17 05:24 Pulse Ox 100 11/21/17 05:24 - Medical History PMH: Asthma, Atrial Fibrillation, CHF, COPD, HTN Denies: Chronic Kidney Disease Surgical History: Pacemaker Family History: States: No Known Family Hx - Social History Hx Alcohol Use: No Hx Substance Use: No - Immunization History Hx Tetanus Toxoid Vaccination: No Hx Influenza Vaccination: No Hx Pneumococcal Vaccination: No Review Of Systems Constitutional: Negative for: Fever, Chills Cardiovascular: Positive for: Chest Pain Respiratory: Positive for: Shortness of Breath Gastrointestinal: Positive for: Nausea, Vomiting Physical Exam - Physical Exam Appears: Non-toxic, Other (In respiratory distress ) Skin: Warm, Dry Head: Normacephalic Eye(s): bilateral: Normal Inspection Oral Mucosa: Moist Neck: Trachea Midline, Supple Chest: Symmetrical Cardiovascular: Other (irregulary irregular ) Respiratory: Rales (Rales at the bases B/L), No Rhonchi, No Wheezing Gastrointestinal/Abdominal: Soft, No Tenderness, No Distention, No Guarding, Other (Tympanitic to percussion ) Extremity: Pedal Edema Extremity: Bilateral: Atraumatic Neurological/Psych: Normal Speech, Normal Cognition Gait: Steady ED Course And Treatment - Laboratory Results Result Diagrams: 11/21/17 04:43 11/21/17 04:43 ECG: Interpreted By Me, Viewed By Me ECG Rhythm: Atrial Fibrillation (122), L BBB, Nonspecific Changes O2 Sat by Pulse Oximetry: 96 Pulse Ox Interpretation: Normal - Radiology CXR Interpretation: Yes: Other (chf, left pacemaker, somewhat worse from 10/02). No: Infiltrates, Fracture, Pnemothorax Critical Care Time - Critical Care Note Total Time (in mins): 30 Documented critical care: time excludes all time spent performing seperately billable procedures. Disposition Discussed With DrClarke: Carlos Monson Comment: accepted the pt on his service and took over the care at6:35AM Doctor Will See Patient In The: Hospital Counseled Patient/Family Regarding: Studies Performed, Diagnosis - Disposition Disposition: HOSPITALIZED Disposition Time: 04:26 Condition: GUARDED Forms: [facility] (Thai) - POA Present On Arrival: Poor Glycemic Control - Clinical Impression Clinical Impression: Chest pain, Dyspnea, CHF (congestive heart failure) - Scribe Statement The provider has reviewed the documentation as recorded by the Scribe Marybel Issa All medical record entries made by the Scribe were at my direction and personally dictated by me. I have reviewed the chart and agree that the record accurately reflects my personal performance of the history, physical exam, medical decision making, and the department course for this patient. I have also personally directed, reviewed, and agree with the discharge instructions and disposition.
[2017-11-21] MEDS ORDERED: Albuterol-Ipratrop 3 mg / 0.5 (3 ml) UD ONE ×2 (04:42→06:50)
[2017-11-21] MEDS ORDERED: Albuterol-Ipratrop 3 mg / 0.5 (3 ml) UD IH SCH (04:45)
[2017-11-21 04:46] LABS: BASO # 0.1 K/uL (0.0-0.2); BASO % 0.7 % (0.0-2.0); EOS # 0.4 K/uL (0.0-0.7); EOS % 2.6 % (0.0-4.0); HEMOGLOBIN 13.8 g/dL (12.0-18.0); LYMPH # 1.8 K/uL (1.0-4.3); LYMPH % 11.7 % (20.0-40.0); MEAN CELL VOLUME 89.3 fL (80.0-94.0); MEAN CORPUSCULAR HEMOGLOBIN 30.3 pg (27.0-31.0); MEAN CORPUSCULAR HGB CONC 33.9 g/dL (33.0-37.0); MEAN PLATELET VOLUME 8.9 fL (7.2-11.7); MONO # 1.2 K/uL (0.0-0.8); MONO % 8.2 % (0.0-10.0); NEUT # 11.7 K/uL (1.8-7.0); NEUT % 76.8 % (50.0-75.0); RBC 4.56 Mil/uL (4.40-5.90); RED CELL DISTRIBUTION WIDTH 14.1 % (11.5-14.5); WHITE BLOOD COUNT 15.3 K/uL (4.8-10.8)
[2017-11-21 04:54] LABS: INR 1.4; PROTHROMBIN TIME 15.8 SECONDS (9.7-12.2)
[2017-11-21 05:02] LABS: ALB/GLOB RATIO 1.4 (1.0-2.1); ALBUMIN 3.9 g/dL (3.5-5.0); ALT/SGPT 34 U/L (21-72); AST/SGOT 32 U/L (17-59); BLOOD UREA NITROGEN 17 mg/dL (9-20); CALCIUM 8.5 mg/dl (8.6-10.4); GFR AFRICAN-AMERICAN > 60; GFR NON-AFRICAN AMERICAN 50
[2017-11-21 05:13] LABS: B-TYPE NATRIURETIC PEPTIDE 2110 pg/mL (0-900)
[2017-11-21] MEDS: Albuterol-Ipratrop 3 mg / 0.5 (3 ml) UD INH SCH ×4 (06:33→23:52)
[2017-11-21] MEDS ORDERED: EPLERENONE 25 MG PO SCH (10:00)
[2017-11-21] MEDS ORDERED: Levothyroxine 50 MCG TAB PO SCH (10:00)
--- NOTE | 2017-11-21 11:37 | RAD ---
Date of service: 11/21/2017 PROCEDURE: CHEST RADIOGRAPH, 1 VIEW HISTORY: chest pain COMPARISON: Portable chest 09/16/2017. FINDINGS: LUNGS: No alveolar infiltrate bilaterally. PLEURA: No pneumothorax or pleural fluid seen. CARDIOVASCULAR: Borderline pulmonary vascular congestion. Cardiomegaly stable. AICD/ permanent pacemaker unchanged. OSSEOUS STRUCTURES: No significant abnormalities. VISUALIZED UPPER ABDOMEN: Normal. OTHER FINDINGS: None. IMPRESSION: Borderline pulmonary vascular congestion. No additional significant interval change identified.
[2017-11-21 12:51] LABS: SQUAMOUS EPITHIAL 2 /hpf (0-5); URINE BILIRUBIN NEGATIVE (NEGATIVE); URINE BLOOD NEGATIVE (NEGATIVE); URINE CLARITY Clear (Clear); URINE COLOR Yellow (YELLOW); URINE GLUCOSE (UA) NORMAL (Normal); URINE LEUKOCYTE ESTERASE NEG Leu/uL (Negative); URINE PROTEIN NEGATIVE (NEGATIVE); URINE UROBILINOGEN NORMAL mg/dL (0.2-1.0)
--- NOTE | 2017-11-21 13:31 | CP.PCM.CON ---
History of Present Illness - History of Present Illness History of Present Illness: reason for consultation: shortness of breath 67-year-old male with past medical history of CHF,atrial fibrillation, COPD, hypertension, hyperlipidemia, diabetes status post permanent pacemaker who presented to emergency room complaining of shortness of breath and chest pain started last night. Denies cough, denies fever and chills, denies night sweats Review of Systems - Review of Systems All systems: reviewed and no additional remarkable complaints except (shortness of breath and chest pain.) Past Patient History - Infectious Disease Hx of Infectious Diseases: None - Past Medical History & Family History Past Medical History?: Yes - Past Social History Smoking Status: Former Smoker - CARDIAC Hx Atrial Fibrillation: Yes Hx Congestive Heart Failure: Yes Hx Hypertension: Yes Hx Pacemaker: Yes - PULMONARY Hx Asthma: Yes Hx Chronic Obstructive Pulmonary Disease (COPD): Yes - NEUROLOGICAL Hx Neurological Disorder: No - HEENT Hx HEENT Problems: No - RENAL Hx Chronic Kidney Disease: No - ENDOCRINE/METABOLIC Hx Endocrine Disorders: Yes Hx Diabetes Mellitus Type 2: Yes - HEMATOLOGICAL/ONCOLOGICAL Hx Blood Disorders: No - INTEGUMENTARY Hx Dermatological Problems: No - MUSCULOSKELETAL/RHEUMATOLOGICAL Hx Musculoskeletal Disorders: No Hx Falls: No - GASTROINTESTINAL Hx Gastrointestinal Disorders: No - GENITOURINARY/GYNECOLOGICAL Hx Genitourinary Disorders: No - PSYCHIATRIC Hx Substance Use: No - SURGICAL HISTORY Hx Surgeries: Yes Other/Comment: Pacemaker insertion - ANESTHESIA Hx Anesthesia: Yes Hx Anesthesia Reactions: No Meds Allergies/Adverse Reactions: Allergies Allergy/AdvReac Type Severity Reaction Status Date / Time Penicillins Allergy Verified 09/15/17 06:47 aspirin AdvReac Verified 11/21/17 04:29 - Medications Medications: Current Medications Albuterol/Ipratropium (Duoneb 3 Mg/0.5 Mg (3 Ml) Ud) 3 ml INH RQ6 COUNT INCLUDES THE [facility] Amiodarone HCl (Cordarone) 100 mg PO DAILY COUNT INCLUDES THE [facility] Last Admin: 11/21/17 10:27 Dose: 100 mg Bisoprolol Fumarate (Zebeta) 5 mg PO DAILY COUNT INCLUDES THE [facility] Last Admin: 11/21/17 10:27 Dose: 5 mg Budesonide (Pulmicort Respules) 0.5 mg INH RQ12 COUNT INCLUDES THE [facility] Furosemide (Lasix) 20 mg IVP BID COUNT INCLUDES THE [facility] Last Admin: 11/21/17 10:28 Dose: 20 mg Home Med (Eplerenone [Eplerenone]) 25 mg PO DAILY COUNT INCLUDES THE [facility] Home Med (Tizanidine [Zanaflex]) 2 mg PO HS COUNT INCLUDES THE [facility] Levothyroxine Sodium (Synthroid) 50 mcg PO DAILY COUNT INCLUDES THE [facility] Last Admin: 11/21/17 10:28 Dose: 50 mcg Pantoprazole Sodium (Protonix Ec Tab) 40 mg PO DAILY COUNT INCLUDES THE [facility] Rivaroxaban (Xarelto) 15 mg PO HS COUNT INCLUDES THE [facility] Rosuvastatin Calcium (Crestor) 20 mg PO HS COUNT INCLUDES THE [facility] Physical Exam - Head Exam Head Exam: ATRAUMATIC, NORMOCEPHALIC - ENT Exam ENT Exam: Mucous Membranes Moist - Neck Exam Neck exam: Positive for: Normal Inspection - Respiratory Exam Respiratory Exam: Rales - Cardiovascular Exam Cardiovascular Exam: REGULAR RHYTHM - GI/Abdominal Exam GI & Abdominal Exam: Normal Bowel Sounds, Soft - Extremities Exam Extremities exam: Positive for: pedal edema Results - Vital Signs Recent Vital Signs: Last Vital Signs Temp 98.7 F 11/21/17 09:00 Pulse 97 H 11/21/17 09:00 Resp 20 11/21/17 09:00 BP 125/76 11/21/17 10:28 Pulse Ox 97 11/21/17 09:00 - Labs Result Diagrams: 11/21/17 04:43 11/21/17 04:43 Labs: Laboratory Results - last 24 hr 11/21/17 11/21/17 11/21/17 04:43 04:43 04:43 WBC 15.3 H RBC 4.56 Hgb 13.8 Hct 40.7 MCV 89.3 D MCH 30.3 MCHC 33.9 RDW 14.1 Plt Count 237 MPV 8.9 Neut % (Auto) 76.8 H Lymph % (Auto) 11.7 L [place] % (Auto) 8.2 Eos % (Auto) 2.6 Baso % (Auto) 0.7 Neut # (Auto) 11.7 H Lymph # (Auto) 1.8 [place] # (Auto) 1.2 H Eos # (Auto) 0.4 Baso # (Auto) 0.1 PT 15.8 H INR 1.4 APTT 42 H Sodium 142 Potassium 3.7 Chloride 103 Carbon Dioxide 27 Anion Gap 16 BUN 17 Creatinine 1.4 Est GFR ( Amer) > 60 Est GFR (Non-Af Amer) 50 POC Glucose (mg/dL) Random Glucose 151 H Calcium 8.5 L Total Bilirubin 0.6 AST 32 ALT 34 Alkaline Phosphatase 84 Troponin I 0.0130 NT-Pro-B Natriuret Pep 2110 H Total Protein 6.7 Albumin 3.9 Globulin 2.8 Albumin/Globulin Ratio 1.4 TSH 3rd Generation 5.70 H Urine Color Urine Clarity Urine pH Ur Specific [place] Urine Protein Urine Glucose (UA) Urine Ketones Urine Blood Urine Nitrate Urine Bilirubin Urine Urobilinogen Ur Leukocyte Esterase Urine WBC (Auto) Urine RBC (Auto) Ur Squamous Epith Cells 11/21/17 11/21/17 11:26 12:37 WBC RBC Hgb Hct MCV MCH MCHC RDW Plt Count MPV Neut % (Auto) Lymph % (Auto) [place] % (Auto) Eos % (Auto) Baso % (Auto) Neut # (Auto) Lymph # (Auto) [place] # (Auto) Eos # (Auto) Baso # (Auto) PT INR APTT Sodium Potassium Chloride Carbon Dioxide Anion Gap BUN Creatinine Est GFR ( Amer) Est GFR (Non-Af Amer) POC Glucose (mg/dL) 143 H Random Glucose Calcium Total Bilirubin AST ALT Alkaline Phosphatase Troponin I NT-Pro-B Natriuret Pep Total Protein Albumin Globulin Albumin/Globulin Ratio TSH 3rd Generation Urine Color Yellow Urine Clarity Clear Urine pH 6.0 Ur Specific [place] 1.016 Urine Protein Negative Urine Glucose (UA) Normal Urine Ketones Negative Urine Blood Negative Urine Nitrate Negative Urine Bilirubin Negative Urine Urobilinogen Normal Ur Leukocyte Esterase Neg Urine WBC (Auto) 1 Urine RBC (Auto) 2 Ur Squamous Epith Cells 2 Assessment & Plan (1) COPD exacerbation Status: Acute Comment: continue nebulizer treatment. Add inhaled steroids. CAT scan of the chest to follow-up lung nodule. Cardiac workup (2) CHF exacerbation Status: Acute
[2017-11-21] MEDS ORDERED: Iohexol 240 (50 ml) PO ONE (14:30)
--- NOTE | 2017-11-21 14:37 | CARD ---
APPROVED REPORT Date of service: 11/21/2017 EKG Measurement Heart [id number] <Conclusion> Atrial fibrillation with rapid ventricular response Low voltage QRS Incomplete left bundle branch block Nonspecific ST abnormality Abnormal ECG
[2017-11-21] MEDS: MethylPREDNISolone 40 mg Vial IVP SCH ×2 (14:54→21:36)
--- NOTE | 2017-11-21 15:47 | CP.PCM.CON ---
History of Present Illness - History of Present Illness History of Present Illness: The pt is a 67 year old man is dilated caiomyopath, no know CAD. The pt has episodic atrial fib. he had been on entresto, doing wel,, and the insurance no longer paid. On valsartan, he has now been hospitalized twice. ECg showed atrial fibrillation yesterday: today, telemetry showed nsr. Amio was lowered to 100 a day from 200 a day as pt had had no afib, and to reduced toxicity. pt;s main complaint is abdominal distention and fullnes, which in turn affects his breathing. A ct is ordered. CXR shows only mild congestion. Thre is no scrotal or pedal edema. here at the hospital, pt has not been started on arb or his eplenarone. TNI is negative. Review of Systems - Review of Systems All systems: reviewed and no additional remarkable complaints except (as above) Past Patient History - Infectious Disease Hx of Infectious Diseases: None - Past Medical History & Family History Past Medical History?: Yes - Past Social History Smoking Status: Former Smoker - CARDIAC Hx Atrial Fibrillation: Yes Hx Congestive Heart Failure: Yes Hx Hypertension: Yes Hx Pacemaker: Yes - PULMONARY Hx Asthma: Yes Hx Chronic Obstructive Pulmonary Disease (COPD): Yes - NEUROLOGICAL Hx Neurological Disorder: No - HEENT Hx HEENT Problems: No - RENAL Hx Chronic Kidney Disease: No - ENDOCRINE/METABOLIC Hx Endocrine Disorders: Yes Hx Diabetes Mellitus Type 2: Yes - HEMATOLOGICAL/ONCOLOGICAL Hx Blood Disorders: No - INTEGUMENTARY Hx Dermatological Problems: No - MUSCULOSKELETAL/RHEUMATOLOGICAL Hx Musculoskeletal Disorders: No Hx Falls: No - GASTROINTESTINAL Hx Gastrointestinal Disorders: No - GENITOURINARY/GYNECOLOGICAL Hx Genitourinary Disorders: No - PSYCHIATRIC Hx Substance Use: No - SURGICAL HISTORY Hx Surgeries: Yes Other/Comment: Pacemaker insertion - ANESTHESIA Hx Anesthesia: Yes Hx Anesthesia Reactions: No Meds Allergies/Adverse Reactions: Allergies Allergy/AdvReac Type Severity Reaction Status Date / Time Penicillins Allergy Verified 09/15/17 06:47 aspirin AdvReac Verified 11/21/17 04:29 - Medications Medications: Current Medications Albuterol/Ipratropium (Duoneb 3 Mg/0.5 Mg (3 Ml) Ud) 3 ml INH RQ6 [facility] Last Admin: 11/21/17 13:32 Dose: 3 ml Amiodarone HCl (Cordarone) 100 mg PO DAILY [facility] Last Admin: 11/21/17 10:27 Dose: 100 mg Bisoprolol Fumarate (Zebeta) 5 mg PO DAILY [facility] Last Admin: 11/21/17 10:27 Dose: 5 mg Budesonide (Pulmicort Respules) 0.5 mg INH RQ12 [facility] Cyclobenzaprine HCl (Flexeril) 5 mg PO HS [facility] Furosemide (Lasix) 20 mg IVP Q12 [facility] Insulin Aspart (Novolog) 0 unit SC ACHS [facility] PRN Reason: Protocol Levothyroxine Sodium (Synthroid) 50 mcg PO DAILY@0630 [facility] Methylprednisolone (Solu-Medrol) 20 mg IVP Q8 [facility] Last Admin: 11/21/17 14:54 Dose: 20 mg Pantoprazole Sodium (Protonix Ec Tab) 40 mg PO DAILY [facility] Rivaroxaban (Xarelto) 15 mg PO HS [facility] Rosuvastatin Calcium (Crestor) 20 mg PO HS [facility] Physical Exam - Constitutional Appears: Chronically Ill - Head Exam Head Exam: NORMAL INSPECTION - Eye Exam Eye Exam: EOMI - ENT Exam ENT Exam: Mucous Membranes Dry - Respiratory Exam Respiratory Exam: Clear to Auscultation Bilateral - Cardiovascular Exam Cardiovascular Exam: REGULAR RHYTHM - GI/Abdominal Exam GI & Abdominal Exam: Normal Bowel Sounds - Exam External exam: NORMAL EXTERNAL EXAM - Extremities Exam Extremities exam: Positive for: normal inspection - Back Exam Back exam: NORMAL INSPECTION - Neurological Exam Neurological exam: Alert, CN II-XII Intact, Normal Gait, Oriented x3 - Psychiatric Exam Psychiatric exam: Anxious - Skin Skin Exam: Normal Color Results - Vital Signs Recent Vital Signs: Last Vital Signs Temp 98.7 F 11/21/17 09:00 Pulse 88 11/21/17 13:30 Resp 20 11/21/17 09:00 BP 125/76 11/21/17 10:28 Pulse Ox 97 11/21/17 09:00 - Labs Result Diagrams: 11/21/17 04:43 11/21/17 04:43 Labs: Laboratory Results - last 24 hr 11/21/17 11/21/17 11/21/17 04:43 04:43 04:43 WBC 15.3 H RBC 4.56 Hgb 13.8 Hct 40.7 MCV 89.3 D MCH 30.3 MCHC 33.9 RDW 14.1 Plt Count 237 MPV 8.9 Neut % (Auto) 76.8 H Lymph % (Auto) 11.7 L [place] % (Auto) 8.2 Eos % (Auto) 2.6 Baso % (Auto) 0.7 Neut # (Auto) 11.7 H Lymph # (Auto) 1.8 [place] # (Auto) 1.2 H Eos # (Auto) 0.4 Baso # (Auto) 0.1 PT 15.8 H INR 1.4 APTT 42 H Sodium 142 Potassium 3.7 Chloride 103 Carbon Dioxide 27 Anion Gap 16 BUN 17 Creatinine 1.4 Est GFR ( Amer) > 60 Est GFR (Non-Af Amer) 50 POC Glucose (mg/dL) Random Glucose 151 H Calcium 8.5 L Total Bilirubin 0.6 AST 32 ALT 34 Alkaline Phosphatase 84 Troponin I 0.0130 NT-Pro-B Natriuret Pep 2110 H Total Protein 6.7 Albumin 3.9 Globulin 2.8 Albumin/Globulin Ratio 1.4 TSH 3rd Generation 5.70 H Urine Color Urine Clarity Urine pH Ur Specific [place] Urine Protein Urine Glucose (UA) Urine Ketones Urine Blood Urine Nitrate Urine Bilirubin Urine Urobilinogen Ur Leukocyte Esterase Urine WBC (Auto) Urine RBC (Auto) Ur Squamous Epith Cells 11/21/17 11/21/17 11:26 12:37 WBC RBC Hgb Hct MCV MCH MCHC RDW Plt Count MPV Neut % (Auto) Lymph % (Auto) [place] % (Auto) Eos % (Auto) Baso % (Auto) Neut # (Auto) Lymph # (Auto) [place] # (Auto) Eos # (Auto) Baso # (Auto) PT INR APTT Sodium Potassium Chloride Carbon Dioxide Anion Gap BUN Creatinine Est GFR ( Amer) Est GFR (Non-Af Amer) POC Glucose (mg/dL) 143 H Random Glucose Calcium Total Bilirubin AST ALT Alkaline Phosphatase Troponin I NT-Pro-B Natriuret Pep Total Protein Albumin Globulin Albumin/Globulin Ratio TSH 3rd Generation Urine Color Yellow Urine Clarity Clear Urine pH 6.0 Ur Specific [place] 1.016 Urine Protein Negative Urine Glucose (UA) Normal Urine Ketones Negative Urine Blood Negative Urine Nitrate Negative Urine Bilirubin Negative Urine Urobilinogen Normal Ur Leukocyte Esterase Neg Urine WBC (Auto) 1 Urine RBC (Auto) 2 Ur Squamous Epith Cells 2 - EKG Data EKG Interpreted by: Myself (atrial fib, now sinus) Assessment & Plan - Assessment and Plan (Free Text) Assessment: 1. Recurrent atiral fibrillation is likely the cause of the patients decompensation, now in NSr. Xarelto. Beta blcoker, Increase amio back to 200 a day. Consier outpatient ablation. Repeat ecg. 2. CHF: echo 09/2017 confirms long time standing severe LV dysfunction. Pt was on a dobutamine drip at one time. Will re add arb, eplenarone. Will call insurance company for entresto. Pt did very well with entresto. 3. Abdominal pain poor appetite: medicine work up pending. 4. Levoxyl
[2017-11-21] MEDS ORDERED: Iodixanol 320 MG/ML 100 ML BOTTLE IV ONE (17:14)
[2017-11-21] MEDS: (Novolog) Insulin Aspart, Recombinant 100 u/ml 10 ml vial SC SCH ×2 (17:50→21:35)
--- NOTE | 2017-11-21 18:25 | CT ---
Date of service: 11/21/2017 PROCEDURE: CT Chest, Abdomen and Pelvis with intravenous contrast HISTORY: abd pain; previous abd surgery COMPARISON: Abdomen pelvis CT 04/04/2016, chest CT angiogram 11/18/2015. TECHNIQUE: Helical CT of the chest, abdomen and pelvis was performed from the thoracic inlet to the pubic symphysis following oral intravenous contrast administration. Reformatted datasets provided in sagittal axial coronal planes. IV dose administered: Visipaque 320, 100 cc Radiation dose: Total exam DLP = 965.82 mGy-cm. This CT exam was performed using one or more of the following dose reduction techniques: Automated exposure control, adjustment of the mA and/or kV according to patient size, and/or use of iterative reconstruction technique. FINDINGS: CT CHEST WITH CONTRAST: LUNGS: Infiltrate is suggested at the right lower lobe superiorly with compressive atelectasis seen greater at the right than left lung bases. Stable 1 cm noncalcified nodule seen the right apex with biapical fibrosis reiterated. Subcentimeter nodular foci at the left apex are stable increased nodular changes are seen which are not completely solid at the right upper lobe in image 43 series 4 measure 1.0 x 1.4 cm. Linear atelectasis is noted at the left lower lobe. MEDIASTINUM: Cardiomegaly is reiterated with normal thoracic aortic caliber as well as main pulmonary artery segment. No signal lymphadenopathy. Pacemaker/AICD leads reiterated with generator the left pectoralis region once again. LYMPH NODES: No significant lymphadenopathy. PLEURA: Mild bilateral pleural effusions are identified greater at the right than left. BONES: Unremarkable. OTHER FINDINGS: Tiny hiatal hernia reiterated. CT ABDOMEN AND PELVIS: LIVER: Unremarkable. No gross lesion or ductal dilatation. GALLBLADDER AND BILE DUCTS: Unremarkable. PANCREAS: Unremarkable. No gross lesion or ductal dilatation. SPLEEN: Unremarkable. ADRENALS: Unremarkable. No mass. KIDNEYS AND URETERS: Stable left renal cyst. No solid parenchymal mass bilaterally. No obstructive uropathy or perinephric reaction VASCULATURE: Bilaterally. Atherosclerotic nonaneurysmal abdominal aorta reiterated with inferior vena cava appearing unremarkable grossly. BOWEL: Unremarkable. No obstruction. No gross mural thickening. Reiteration of scattered diverticulosis without diverticulitis. APPENDIX: Normal appendix. PERITONEUM: Unremarkable. No free fluid. No free air. LYMPH NODES: Unremarkable. No enlarged lymph nodes. BLADDER: Urinary bladder is largely decompressed with mural thickening potentially on the basis of decompression though cystitis is not excluded. No focal nodularity identified to suspect neoplasm though this is not completely excluded as well. REPRODUCTIVE: Enlarged prostate gland reiterated. BONES: No acute fracture. OTHER FINDINGS: None. IMPRESSION: 1. Mild bilateral pleural effusions greater the right than left sides with compression atelectasis affects the bilateral lower lobes, right greater than left. Limited infiltrate right lower lobe. 2. Small scattered nodules are diminished in size are stable in the bilateral pulmonary apices. However, there is an increased in density of a nodular focus at the right upper lobe now measuring 1.4 cm greatest dimension. Consider follow-up nuclear PET-CT or tissue diagnosis to exclude potential malignancy. 3. No significant lymphadenopathy in the chest. 4. Stable left renal cyst. 5. Urinary bladder is decompressed with mural thickening is identified from an indeterminate etiology. Clinically correlate further. Consider potential cystitis. 6. Enlarged prostate gland reiterated. 7. Other lesser findings as discussed above.
[2017-11-21] MEDS: Budesonide 0.5 mg/2 ml Inhal Susp UD INH SCH (20:36)
[2017-11-21] MEDS ORDERED: Home Med 1 UNIT (Tizanidine [Zanaflex] 2 MG) PO SCH (22:00)
[2017-11-22] MEDS: Albuterol-Ipratrop 3 mg / 0.5 (3 ml) UD INH SCH ×4 (01:18→20:58)
[2017-11-22] MEDS: Levothyroxine 50 MCG TAB PO SCH (06:06)
[2017-11-22] MEDS: MethylPREDNISolone 40 mg Vial IVP SCH ×3 (06:06→22:17)
[2017-11-22] MEDS: Budesonide 0.5 mg/2 ml Inhal Susp UD INH SCH ×2 (08:04→20:58)
[2017-11-22] MEDS: (Novolog) Insulin Aspart, Recombinant 100 u/ml 10 ml vial SC SCH ×4 (08:15→22:18)
[2017-11-22] MEDS: Pantoprazole 40 mg EC Tab PO SCH (09:08)
[2017-11-22] MEDS: (Lantus) Insulin Glargine, Recombinant SC SCH (09:25)
[2017-11-22] MEDS ORDERED: EPLERENONE 25 MG PO SCH (10:00)
--- NOTE | 2017-11-22 15:01 | CP.PCM.PN ---
Subjective - Date & Time of Evaluation Date of Evaluation: 11/22/17 Time of Evaluation: 10:00 - Subjective Subjective: patient seen and examined Still complaining of shortness of breath patient is refusing to use BiPAP CAT scan of the chest showed increase in size of right upper lung nodule and bilateral small pleural effusions Denies cough, denies fever or chills, denies chest pain Objective - Vital Signs/Intake and Output Vital Signs (last 24 hours): Temp Pulse Resp BP Pulse Ox 98 F 77 20 137/75 98 11/22/17 07:00 11/22/17 14:14 11/22/17 07:00 11/22/17 09:08 11/22/17 07:00 - Medications Medications: Current Medications Albuterol/Ipratropium (Duoneb 3 Mg/0.5 Mg (3 Ml) Ud) 3 ml INH RQ6 [facility] Last Admin: 11/22/17 14:14 Dose: 3 ml Amiodarone HCl (Cordarone) 200 mg PO DAILY [facility] Last Admin: 11/22/17 09:07 Dose: 200 mg Bisoprolol Fumarate (Zebeta) 5 mg PO DAILY [facility] Last Admin: 11/22/17 09:07 Dose: 5 mg Budesonide (Pulmicort Respules) 0.5 mg INH RQ12 [facility] Last Admin: 11/22/17 08:04 Dose: 0.5 mg Cyclobenzaprine HCl (Flexeril) 5 mg PO HS [facility] Last Admin: 11/21/17 21:34 Dose: 5 mg Furosemide (Lasix) 20 mg IVP Q12 [facility] Last Admin: 11/22/17 09:08 Dose: 20 mg Insulin Aspart (Novolog) 0 unit SC ACHS [facility] PRN Reason: Protocol Last Admin: 11/22/17 12:05 Dose: 4 u Insulin Glargine (Lantus) 20 unit SC PCB [facility] Last Admin: 11/22/17 09:25 Dose: 20 u Levothyroxine Sodium (Synthroid) 50 mcg PO DAILY@0630 [facility] Last Admin: 11/22/17 06:06 Dose: 50 mcg Losartan Potassium (Cozaar) 50 mg PO BID [facility] Methylprednisolone (Solu-Medrol) 20 mg IVP Q8 [facility] Last Admin: 11/22/17 13:50 Dose: 20 mg Pantoprazole Sodium (Protonix Ec Tab) 40 mg PO DAILY [facility] Last Admin: 11/22/17 09:08 Dose: 40 mg Rivaroxaban (Xarelto) 15 mg PO HS [facility] Last Admin: 11/21/17 21:36 Dose: 15 mg Rosuvastatin Calcium (Crestor) 20 mg PO HS [facility] Last Admin: 11/21/17 21:33 Dose: 20 mg Spironolactone (Aldactone) 25 mg PO DAILY [facility] Last Admin: 11/22/17 09:07 Dose: 25 mg - Labs Labs: 11/21/17 04:43 11/21/17 04:43 PT 15.8 SECONDS (9.7-12.2) H 11/21/17 04:43 INR 1.4 11/21/17 04:43 APTT 42 SECONDS (21-34) H 11/21/17 04:43 - Head Exam Head Exam: ATRAUMATIC, NORMOCEPHALIC - ENT Exam ENT Exam: Mucous Membranes Moist - Respiratory Exam Respiratory Exam: Clear to Ausculation Bilateral - Cardiovascular Exam Cardiovascular Exam: REGULAR RHYTHM - GI/Abdominal Exam GI & Abdominal Exam: Soft, Normal Bowel Sounds - Extremities Exam Extremities Exam: Pedal Edema Assessment and Plan (1) COPD exacerbation Assessment & Plan: continue nebulizer treatment and inhaled steroids Status: Acute (2) CHF exacerbation Status: Acute (3) Lung nodule < 6cm on CT Assessment & Plan: there is increase in size of right upper lung nodule Consider CT-guided biopsy case discussed with IR AND RECOMMENDED pet SCAN Status: Acute
--- NOTE | 2017-11-22 15:15 | CP.PCM.PN ---
Subjective - Date & Time of Evaluation Date of Evaluation: 11/22/17 Time of Evaluation: 15:11 - Subjective Subjective: The pt feels better, no more abdominal pain. CT of the abdomen was normal. pt has an enlarging lung mass. A biopsy under local is planned. small bilateral effusions are noted in the CT. the pt has remained in NSR. Objective - Vital Signs/Intake and Output Vital Signs (last 24 hours): Temp Pulse Resp BP Pulse Ox 98 F 77 20 137/75 98 11/22/17 07:00 11/22/17 14:14 11/22/17 07:00 11/22/17 09:08 11/22/17 07:00 - Medications Medications: Current Medications Albuterol/Ipratropium (Duoneb 3 Mg/0.5 Mg (3 Ml) Ud) 3 ml INH RQ6 [facility] Last Admin: 11/22/17 14:14 Dose: 3 ml Amiodarone HCl (Cordarone) 200 mg PO DAILY [facility] Last Admin: 11/22/17 09:07 Dose: 200 mg Bisoprolol Fumarate (Zebeta) 5 mg PO DAILY [facility] Last Admin: 11/22/17 09:07 Dose: 5 mg Budesonide (Pulmicort Respules) 0.5 mg INH RQ12 [facility] Last Admin: 11/22/17 08:04 Dose: 0.5 mg Cyclobenzaprine HCl (Flexeril) 5 mg PO HS [facility] Last Admin: 11/21/17 21:34 Dose: 5 mg Furosemide (Lasix) 20 mg IVP Q12 [facility] Last Admin: 11/22/17 09:08 Dose: 20 mg Insulin Aspart (Novolog) 0 unit SC ACHS [facility] PRN Reason: Protocol Last Admin: 11/22/17 12:05 Dose: 4 u Insulin Glargine (Lantus) 20 unit SC PCB [facility] Last Admin: 11/22/17 09:25 Dose: 20 u Levothyroxine Sodium (Synthroid) 50 mcg PO DAILY@0630 [facility] Last Admin: 11/22/17 06:06 Dose: 50 mcg Losartan Potassium (Cozaar) 50 mg PO BID [facility] Methylprednisolone (Solu-Medrol) 20 mg IVP Q8 [facility] Last Admin: 11/22/17 13:50 Dose: 20 mg Pantoprazole Sodium (Protonix Ec Tab) 40 mg PO DAILY [facility] Last Admin: 11/22/17 09:08 Dose: 40 mg Rivaroxaban (Xarelto) 15 mg PO HS [facility] Last Admin: 11/21/17 21:36 Dose: 15 mg Rosuvastatin Calcium (Crestor) 20 mg PO HS [facility] Last Admin: 11/21/17 21:33 Dose: 20 mg Spironolactone (Aldactone) 25 mg PO DAILY [facility] Last Admin: 11/22/17 09:07 Dose: 25 mg - Labs Labs: 11/21/17 04:43 11/21/17 04:43 PT 15.8 SECONDS (9.7-12.2) H 11/21/17 04:43 INR 1.4 11/21/17 04:43 APTT 42 SECONDS (21-34) H 11/21/17 04:43 - Head Exam Head Exam: ATRAUMATIC - Eye Exam Eye Exam: EOMI - ENT Exam ENT Exam: Mucous Membranes Moist - Respiratory Exam Respiratory Exam: Clear to Ausculation Bilateral - Cardiovascular Exam Cardiovascular Exam: REGULAR RHYTHM - GI/Abdominal Exam GI & Abdominal Exam: Normal Bowel Sounds - Exam External exam: NORMAL EXTERNAL EXAM - Back Exam Back Exam: NORMAL INSPECTION - Neurological Exam Neurological Exam: Alert, Awake, Normal Gait, Oriented x3 - Psychiatric Exam Psychiatric exam: Normal Affect - Skin Skin Exam: Normal Color Assessment and Plan - Assessment and Plan (Free Text) Assessment: 1. dilated cardiomyopathy: advance losartan. 2. pt will hold xarelto for two days pror to biopsy. 3. Continue IV lasix 4., In NSR with increased amiodarone. 5. Pleural effusion might be chronic. 6. When pt is changed to oral diuretics, would advise torsemide 20 bid, no lasix.
--- NOTE | 2017-11-22 15:26 | CARD ---
APPROVED REPORT Date of service: 11/21/2017 EKG Measurement Heart [id number] <Conclusion> Sinus rhythm with frequent premature ventricular complexes and fusion complexes Incomplete left bundle branch block Prolonged QT Abnormal ECG
[2017-11-22] MEDS ORDERED: Moxifloxacin IV 400mg/250ml NS 400 MG/250 ML BAG IVPB SCH ×2 (21:00→22:00)
--- NOTE | 2017-11-22 23:25 | PN ---
Copied To: Carlos Monson MD Attending MD: Carlos Monson MD DATE: 11/22/2017 SUBJECTIVE: He is still in respiratory distress with nasal cannula on at the time of this examination. PHYSICAL EXAMINATION: VITAL SIGNS: Blood pressure 125/76, temperature 98.7, respiratory rate 20, and pulse 97. HEENT: Pupils equal, reactive to light. Normal-appearing mucosa of the conjunctivae, oropharynx, and nasal membrane mucosa. NECK: Supple. No JVD. No carotid bruit. No lymph node. No thyromegaly. CHEST AND LUNGS: Bilateral symmetrical expansion. Decreased air exchange both lower lung kebede. CARDIOVASCULAR: PMI not localized. S1, S2. No additional sounds. ABDOMEN: Normoactive bowel sounds. No tenderness. No organomegaly. No masses. EXTREMITIES: No cyanosis. No clubbing. No edema. ADOBE MAKER: Alert, awake, oriented x3. No neurological deficit could be appreciated. ASSESSMENT: Exacerbation of chronic obstructive pulmonary disease, dilated cardiomyopathy, paroxysmal atrial fibrillation, type 2 diabetes mellitus, ex-smoker, and right upper lung mass. PLAN: Discussed with Cardiology and Pulmonary and continue current medications. Discussed also with patient's family at the bedside. Carlos Monson MD
[2017-11-23] MEDS: Albuterol-Ipratrop 3 mg / 0.5 (3 ml) UD INH SCH ×5 (01:05→21:02)
[2017-11-23] MEDS: MethylPREDNISolone 40 mg Vial IVP SCH ×3 (05:54→22:34)
[2017-11-23] MEDS: Levothyroxine 50 MCG TAB PO SCH (05:54)
--- NOTE | 2017-11-23 07:43 | HP ---
Copied To: Carlos Monson MD Attending MD: Carlos Monson MD HISTORY OF PRESENT ILLNESS: This is a 67-year-old male with history of multiple medical problems, was admitted with progressive shortness of breath over the past 48 hours. The patient tried home remedies, but there was no improvement. The patient presented to emergency room for evaluation and he was given bronchodilators and steroids, but symptoms persisted and the patient was admitted for further management. The patient is being followed by Cardiology, Dr. Graves, who knows the patient well. The patient is known to have paroxysmal atrial fibrillation, on anticoagulation. Currently, the patient is on both Xarelto and amiodarone. REVIEW OF SYSTEMS: Other review of systems are negative. ALLERGIES: THERE IS ALLERGY TO PENICILLIN AND ASPIRIN. MEDICATIONS: Reviewed as per MAR. SOCIAL HISTORY: The patient is an ex-smoker. FAMILY HISTORY: Not contributory. PAST MEDICAL HISTORY: Hypertension, paroxysmal atrial fibrillation, dilated cardiomyopathy, COPD, type 2 diabetes mellitus. PHYSICAL EXAMINATION: GENERAL: The patient in bed, in mild respiratory distress. VITAL SIGNS: Blood pressure 125/76, temperature 98.7, respiratory rate 20, and pulse 97. HEENT: Pupils equal, and reactive to light. Normal-appearing mucosa of the conjunctivae, oropharynx, and nasal membrane mucosa. NECK: Supple. No JVD. No carotid bruit. No lymph node. No thyromegaly. CHEST/ LUNGS: Bilateral symmetrical expansion. Decreased air entry in both lower lung kebede. CARDIOVASCULAR SYSTEM: PMI not localized. S1, S2. No additional sounds. ABDOMEN: Normoactive bowel sounds. No tenderness. No organomegaly. No masses. EXTREMITIES: No cyanosis, no clubbing, no edema. HISTOLOGY MANAGER: Alert, awake, and oriented x3. No neurological deficits could be appreciated. ASSESSMENT: Exacerbation of chronic obstructive pulmonary disease, type 2 diabetes mellitus, dilated cardiomyopathy, paroxysmal atrial fibrillation. PLAN: Continue current bronchodilators and medications and Accu-Cheks with insulin coverage. Cardiology and Pulmonary consult and follow recommendations. Carlos Monson MD
[2017-11-23] MEDS: Budesonide 0.5 mg/2 ml Inhal Susp UD INH SCH ×2 (07:54→21:01)
[2017-11-23 08:37] LABS: HEMOGLOBIN 14.3 g/dL (12.0-18.0); LYMPH # 1.1 K/uL (1.0-4.3); MEAN CORPUSCULAR HEMOGLOBIN 30.4 pg (27.0-31.0); MEAN CORPUSCULAR HGB CONC 33.2 g/dL (33.0-37.0); MEAN PLATELET VOLUME 9.2 fL (7.2-11.7); MONO # 0.8 K/uL (0.0-0.8); MONO % 3.8 % (0.0-10.0); NEUT # 20.2 K/uL (1.8-7.0); NEUT % 91.2 % (50.0-75.0); PLATELET COUNT 289 K/uL (130-400); RED CELL DISTRIBUTION WIDTH 14.3 % (11.5-14.5); WHITE BLOOD COUNT 22.2 K/uL (4.8-10.8)
[2017-11-23 08:40] LABS: MEAN CELL VOLUME 91.6 fL (80.0-94.0)
[2017-11-23] MEDS: (Novolog) Insulin Aspart, Recombinant 100 u/ml 10 ml vial SC SCH ×4 (08:43→22:33)
[2017-11-23] MEDS: (Lantus) Insulin Glargine, Recombinant SC SCH (08:43)
[2017-11-23 09:12] LABS: BLOOD UREA NITROGEN 26 mg/dL (9-20); CALCIUM 9.5 mg/dl (8.6-10.4); GFR AFRICAN-AMERICAN > 60; GFR NON-AFRICAN AMERICAN 55
[2017-11-23 09:25] LABS: LYMPHOCYTE 2 % (20-40); MONOCYTE 4 % (0-10); NEUTROPHIL 94 % (50-75); PLATELET ESTIMATE NORMAL (NORMAL); TOTAL CELLS COUNTED 100
[2017-11-23] MEDS: Pantoprazole 40 mg EC Tab PO SCH (12:16)
--- NOTE | 2017-11-23 16:39 | CP.PCM.PN ---
Subjective - Date & Time of Evaluation Date of Evaluation: 11/23/17 Time of Evaluation: 10:00 - Subjective Subjective: patient seen and examined Still complaining of shortness of breath on minimal exertion Denies fever chills, denies cough, denies chest pain Objective - Vital Signs/Intake and Output Vital Signs (last 24 hours): Temp Pulse Resp BP Pulse Ox 97.7 F 84 20 126/72 96 11/23/17 16:00 11/23/17 16:00 11/23/17 16:00 11/23/17 16:00 11/23/17 16:00 Intake and Output: 11/23/17 11/23/17 06:59 18:59 Intake Total 350 Balance 350 - Medications Medications: Current Medications Albuterol/Ipratropium (Duoneb 3 Mg/0.5 Mg (3 Ml) Ud) 3 ml INH RQ4 [facility] Amiodarone HCl (Cordarone) 200 mg PO DAILY [facility] Last Admin: 11/23/17 12:17 Dose: 200 mg Bisoprolol Fumarate (Zebeta) 5 mg PO DAILY [facility] Last Admin: 11/23/17 12:17 Dose: 5 mg Budesonide (Pulmicort Respules) 0.5 mg INH RQ12 [facility] Last Admin: 11/23/17 07:54 Dose: 0.5 mg Cyclobenzaprine HCl (Flexeril) 5 mg PO HS [facility] Last Admin: 11/22/17 22:16 Dose: 5 mg Furosemide (Lasix) 20 mg IVP Q12 [facility] Last Admin: 11/23/17 12:17 Dose: 20 mg Insulin Aspart (Novolog) 0 unit SC ACHS [facility] PRN Reason: Protocol Last Admin: 11/23/17 12:17 Dose: 4 u Insulin Glargine (Lantus) 20 unit SC PCB [facility] Last Admin: 11/23/17 08:43 Dose: 20 u Levothyroxine Sodium (Synthroid) 50 mcg PO DAILY@0630 [facility] Last Admin: 11/23/17 05:54 Dose: 50 mcg Losartan Potassium (Cozaar) 50 mg PO BID [facility] Last Admin: 11/23/17 12:17 Dose: 50 mg Methylprednisolone (Solu-Medrol) 20 mg IVP Q8 [facility] Last Admin: 11/23/17 14:17 Dose: 20 mg Pantoprazole Sodium (Protonix Ec Tab) 40 mg PO DAILY [facility] Last Admin: 11/23/17 12:16 Dose: 40 mg Rivaroxaban (Xarelto) 15 mg PO HS [facility] Last Admin: 11/21/17 21:36 Dose: 15 mg Rosuvastatin Calcium (Crestor) 20 mg PO HS [facility] Last Admin: 11/22/17 22:15 Dose: 20 mg Spironolactone (Aldactone) 25 mg PO DAILY [facility] Last Admin: 11/23/17 12:16 Dose: 25 mg - Labs Labs: 11/23/17 08:28 11/23/17 08:28 PT 15.8 SECONDS (9.7-12.2) H 11/21/17 04:43 INR 1.4 11/21/17 04:43 APTT 42 SECONDS (21-34) H 11/21/17 04:43 - Head Exam Head Exam: ATRAUMATIC, NORMOCEPHALIC - Eye Exam Eye Exam: Normal appearance - ENT Exam ENT Exam: Mucous Membranes Moist - Neck Exam Neck Exam: Normal Inspection - Respiratory Exam Respiratory Exam: Rales - Cardiovascular Exam Cardiovascular Exam: REGULAR RHYTHM - GI/Abdominal Exam GI & Abdominal Exam: Soft, Normal Bowel Sounds - Extremities Exam Extremities Exam: Normal Inspection Assessment and Plan (1) COPD exacerbation Assessment & Plan: taper steroids and continue nebulizer treatment discontinue Avelox because of prolonged QT interval Status: Acute (2) CHF exacerbation Status: Acute (3) Lung nodule < 6cm on CT Assessment & Plan: PET scan as outpatient Status: Acute
--- NOTE | 2017-11-23 17:24 | CP.PCM.PN ---
Subjective - Date & Time of Evaluation Date of Evaluation: 11/23/17 Time of Evaluation: 17:19 - Subjective Subjective: Pt feels better, but gets abdominal pain when he walks. Dos not need lung biopsy after all, but is being treated for pneumonia. WBS is 22k Objective - Vital Signs/Intake and Output Vital Signs (last 24 hours): Temp Pulse Resp BP Pulse Ox 97.7 F 84 20 126/72 96 11/23/17 16:00 11/23/17 16:00 11/23/17 16:00 11/23/17 16:00 11/23/17 16:00 Intake and Output: 11/23/17 11/23/17 06:59 18:59 Intake Total 350 1240 Balance 350 1240 - Medications Medications: Current Medications Albuterol/Ipratropium (Duoneb 3 Mg/0.5 Mg (3 Ml) Ud) 3 ml INH RQ4 [facility] Amiodarone HCl (Cordarone) 200 mg PO DAILY [facility] Last Admin: 11/23/17 12:17 Dose: 200 mg Bisoprolol Fumarate (Zebeta) 5 mg PO DAILY [facility] Last Admin: 11/23/17 12:17 Dose: 5 mg Budesonide (Pulmicort Respules) 0.5 mg INH RQ12 [facility] Last Admin: 11/23/17 07:54 Dose: 0.5 mg Cyclobenzaprine HCl (Flexeril) 5 mg PO HS [facility] Last Admin: 11/22/17 22:16 Dose: 5 mg Furosemide (Lasix) 20 mg IVP Q12 [facility] Last Admin: 11/23/17 12:17 Dose: 20 mg Insulin Aspart (Novolog) 0 unit SC ACHS [facility] PRN Reason: Protocol Last Admin: 11/23/17 12:17 Dose: 4 u Insulin Glargine (Lantus) 20 unit SC PCB [facility] Last Admin: 11/23/17 08:43 Dose: 20 u Levothyroxine Sodium (Synthroid) 50 mcg PO DAILY@0630 [facility] Last Admin: 11/23/17 05:54 Dose: 50 mcg Losartan Potassium (Cozaar) 50 mg PO BID [facility] Last Admin: 11/23/17 12:17 Dose: 50 mg Methylprednisolone (Solu-Medrol) 20 mg IVP Q8 [facility] Last Admin: 11/23/17 14:17 Dose: 20 mg Pantoprazole Sodium (Protonix Ec Tab) 40 mg PO DAILY [facility] Last Admin: 11/23/17 12:16 Dose: 40 mg Rivaroxaban (Xarelto) 15 mg PO HS [facility] Last Admin: 11/21/17 21:36 Dose: 15 mg Rosuvastatin Calcium (Crestor) 20 mg PO HS [facility] Last Admin: 11/22/17 22:15 Dose: 20 mg Spironolactone (Aldactone) 25 mg PO DAILY [facility] Last Admin: 11/23/17 12:16 Dose: 25 mg - Labs Labs: 11/23/17 08:28 11/23/17 08:28 PT 15.8 SECONDS (9.7-12.2) H 11/21/17 04:43 INR 1.4 11/21/17 04:43 APTT 42 SECONDS (21-34) H 11/21/17 04:43 - Constitutional Appears: Chronically Ill - Head Exam Head Exam: ATRAUMATIC - Eye Exam Eye Exam: EOMI - ENT Exam ENT Exam: Mucous Membranes Moist - Neck Exam Neck Exam: Full ROM - Respiratory Exam Respiratory Exam: Clear to Ausculation Bilateral - Cardiovascular Exam Cardiovascular Exam: REGULAR RHYTHM - GI/Abdominal Exam GI & Abdominal Exam: Normal Bowel Sounds - Exam External exam: NORMAL EXTERNAL EXAM - Extremities Exam Extremities Exam: Normal Inspection - Back Exam Back Exam: NORMAL INSPECTION - Neurological Exam Neurological Exam: Alert, Awake, Oriented x3 - Psychiatric Exam Psychiatric exam: Normal Affect, Normal Mood - Skin Skin Exam: Normal Color Assessment and Plan - Assessment and Plan (Free Text) Assessment: 1. Severe cardiomyopathy: tolerating meds. 2. S/P recent atria fib: NOAC 3. abdominal CT negative and consider mesenteric ischemia. Will order US of the mesenteric arteries. 4. lungs sound much better and lytes OK, BP good.
[2017-11-24] MEDS: Albuterol-Ipratrop 3 mg / 0.5 (3 ml) UD INH SCH ×6 (00:02→20:28)
[2017-11-24] MEDS: Levothyroxine 50 MCG TAB PO SCH (06:07)
[2017-11-24] MEDS: MethylPREDNISolone 40 mg Vial IVP SCH ×3 (06:54→22:24)
[2017-11-24] MEDS: (Novolog) Insulin Aspart, Recombinant 100 u/ml 10 ml vial SC SCH ×4 (08:25→22:37)
[2017-11-24 08:46] LABS: HEMOGLOBIN 13.8 g/dL (12.0-18.0); MEAN CELL VOLUME 91.2 fL (80.0-94.0); MEAN CORPUSCULAR HEMOGLOBIN 30.3 pg (27.0-31.0); MEAN CORPUSCULAR HGB CONC 33.2 g/dL (33.0-37.0); RBC 4.55 Mil/uL (4.40-5.90); RED CELL DISTRIBUTION WIDTH 14.3 % (11.5-14.5); WHITE BLOOD COUNT 18.5 K/uL (4.8-10.8)
[2017-11-24 08:56] LABS: BLOOD UREA NITROGEN 28 mg/dL (9-20); CALCIUM 9.6 mg/dl (8.6-10.4); GFR AFRICAN-AMERICAN > 60; GFR NON-AFRICAN AMERICAN 55
[2017-11-24] MEDS: Pantoprazole 40 mg EC Tab PO SCH (09:58)
[2017-11-24] MEDS: (Lantus) Insulin Glargine, Recombinant SC SCH (09:59)
[2017-11-24] MEDS ORDERED: Sod Polystyrene Sulf 15 gm/60 ml Susp PO ONE ×2 (10:36→21:44)
--- NOTE | 2017-11-24 12:30 | CP.PCM.PN ---
Subjective - Date & Time of Evaluation Date of Evaluation: 11/24/17 Time of Evaluation: 09:45 - Subjective Subjective: patient seen and examined Denies cough but complaining of shortness of breath on exertion Afebrile Patient feels slight discomfort in the epigastric and lower chest on exertion CAT scan of the chest showed no definitive infiltrate Objective - Vital Signs/Intake and Output Vital Signs (last 24 hours): Temp Pulse Resp BP Pulse Ox 97.7 F 94 H 20 125/88 97 11/24/17 07:00 11/24/17 07:00 11/24/17 07:00 11/24/17 09:59 11/24/17 07:00 Intake and Output: 11/24/17 11/24/17 06:59 18:59 Intake Total 480 Balance 480 - Medications Medications: Current Medications Albuterol/Ipratropium (Duoneb 3 Mg/0.5 Mg (3 Ml) Ud) 3 ml INH RQ4 [facility] Last Admin: 11/24/17 12:01 Dose: 3 ml Amiodarone HCl (Cordarone) 200 mg PO DAILY [facility] Last Admin: 11/24/17 09:58 Dose: 200 mg Bisoprolol Fumarate (Zebeta) 5 mg PO DAILY [facility] Last Admin: 11/24/17 09:58 Dose: 5 mg Budesonide (Pulmicort Respules) 0.5 mg INH RQ12 [facility] Last Admin: 11/23/17 21:01 Dose: 0.5 mg Cyclobenzaprine HCl (Flexeril) 5 mg PO HS [facility] Last Admin: 11/23/17 22:32 Dose: 5 mg Furosemide (Lasix) 20 mg IVP Q12 [facility] Last Admin: 11/24/17 09:59 Dose: 20 mg Insulin Aspart (Novolog) 0 unit SC ACHS [facility] PRN Reason: Protocol Last Admin: 11/24/17 08:25 Dose: 6 u Insulin Glargine (Lantus) 20 unit SC PCB [facility] Last Admin: 11/24/17 09:59 Dose: 20 u Levothyroxine Sodium (Synthroid) 50 mcg PO DAILY@0630 [facility] Last Admin: 11/24/17 06:07 Dose: Not Given Losartan Potassium (Cozaar) 50 mg PO BID [facility] Last Admin: 11/24/17 09:58 Dose: 50 mg Methylprednisolone (Solu-Medrol) 20 mg IVP Q8 [facility] Last Admin: 11/24/17 06:54 Dose: 20 mg Pantoprazole Sodium (Protonix Ec Tab) 40 mg PO DAILY [facility] Last Admin: 11/24/17 09:58 Dose: 40 mg Rivaroxaban (Xarelto) 15 mg PO HS [facility] Last Admin: 11/23/17 22:36 Dose: 15 mg Rosuvastatin Calcium (Crestor) 20 mg PO HS [facility] Last Admin: 11/23/17 22:32 Dose: 20 mg Spironolactone (Aldactone) 25 mg PO DAILY [facility] Last Admin: 11/24/17 09:58 Dose: 25 mg - Labs Labs: 11/24/17 08:37 11/24/17 08:37 PT 15.8 SECONDS (9.7-12.2) H 11/21/17 04:43 INR 1.4 11/21/17 04:43 APTT 42 SECONDS (21-34) H 11/21/17 04:43 - Head Exam Head Exam: ATRAUMATIC, NORMOCEPHALIC - ENT Exam ENT Exam: Mucous Membranes Moist - Neck Exam Neck Exam: Normal Inspection - Respiratory Exam Respiratory Exam: Clear to Ausculation Bilateral - GI/Abdominal Exam GI & Abdominal Exam: Soft, Normal Bowel Sounds Assessment and Plan (1) COPD exacerbation Assessment & Plan: continue present treatment Taper steroids Unlikely pneumonia Continue Azactam Check pro calcitonin level elevated white count secondary to sterods Status: Acute (2) CHF exacerbation Status: Acute (3) Lung nodule < 6cm on CT Status: Acute
[2017-11-24] MEDS: Aztreonam 1 GM in Sodium Chloride 0.9% 100 ML IVPB SCH ×2 (15:08→22:25)
[2017-11-24] MEDS: Budesonide 0.5 mg/2 ml Inhal Susp UD INH SCH (20:28)
--- NOTE | 2017-11-24 21:29 | PQF ---
PROVIDER RESPONSE TEXT: Acute on Chronic Systolic CHF in the setting of COPD Exac. and Afib treated with IV Lasix REVIEWER QUERY TEXT: Clarification of Clinical Diagnostic Findings Please clarify documentation or clinical relevance for the clinical / diagnostic findings or whether those are insignificant or unable to be further specified. Acute on Chronic Systolic CHF in the setting of COPD Exac. and Afib treated with IV Lasix. -Other Explanation -Unable to Determine The patient's Clinical Indicators include: Clinical Findings: SOB, , Chest pain, Pro BNP= 2110, ECHO 2017: EF= 22-30%., CXR showing pulmonary va scular congestion. Treatment: Lasix 20mg IV every 12hrs Risk Factors: HTN, DM, Afib Query created by: Geri Ron on 11/21/2017 5:56 PM Electronically signed by: Carlso Monson MD 11/24/2017 9:26 PM
--- NOTE | 2017-11-24 22:24 | PN ---
Copied To: Carlos Monson MD Attending MD: Carlos Monson MD DATE: 11/23/2017 LATE ENTRY FOR DAILY VISIT SUBJECTIVE: The patient was seen on 11/23/2017. He was still having exertional shortness of breath with some wheezing. PHYSICAL EXAMINATION: VITAL SIGNS: Blood pressure was 144/75, temperature 98.2, respiratory rate 24 and pulse 84. HEENT: Pupils are equal and reactive to light. Normal-appearing mucosa of the conjunctivae, oropharynx, and nasal membrane mucosa. NECK: Supple. No JVD. No carotid bruit. No lymph node. No thyromegaly. CHEST AND LUNGS: Bilateral symmetrical expansion. Scattered rhonchi all over lung kebede. CARDIOVASCULAR SYSTEM: PMI not localized. S1, S2. No additional sounds. ABDOMEN: Normoactive bowel sounds. No tenderness. No organomegaly. No masses. EXTREMITIES: No cyanosis, no clubbing, no edema. CENTRAL NERVOUS SYSTEM: Alert, awake, oriented x2. No neurological deficit could be appreciated. ASSESSMENT: 1. Exacerbation of acute on top of chronic congestive heart failure, both systolic and diastolic. 2. Exacerbation of chronic obstructive pulmonary disease. 3. Hypertension. 4. Chronic kidney disease. 5. Type 2 diabetes mellitus. PLAN: Continue current medications and taper steroids as tolerated. Continue antibiotics as started by rn diabetes educator. Follow recommendations of both Pulmonary and Cardiology. Carlos Monson MD
[2017-11-25] MEDS: Albuterol-Ipratrop 3 mg / 0.5 (3 ml) UD INH SCH ×7 (00:40→23:45)
[2017-11-25] MEDS: MethylPREDNISolone 40 mg Vial IVP SCH ×2 (05:50→13:36)
[2017-11-25] MEDS: Aztreonam 1 GM in Sodium Chloride 0.9% 100 ML IVPB SCH ×4 (05:51→22:05)
[2017-11-25] MEDS: Budesonide 0.5 mg/2 ml Inhal Susp UD INH SCH ×2 (07:26→20:01)
--- NOTE | 2017-11-25 07:54 | PN ---
Copied To: Carlos Monson MD Attending MD: Carlos Monson MD DATE: 11/24/2017 DAILY PROGRESS NOTE SUBJECTIVE: The patient was seen today, 11/24/2017. He was complaining of epigastric pain. Mesenteric Doppler study was ordered by Cardiology to rule out any mesenteric ischemia. The patient is still complaining of shortness of breath. PHYSICAL EXAMINATION: VITAL SIGNS: Blood pressure 118/78, temperature 98, respiratory rate 20, pulse 84. HEENT: Pupils are equal and reactive to light. Normal-appearing mucosa of the conjunctivae, oropharynx, and nasal membrane mucosa. NECK: Supple. No JVD. No carotid bruit. No lymph node. No thyromegaly. CHEST AND LUNGS: Bilateral symmetrical expansion. Good air exchange. Few scattered rhonchi all over lung kebede. CARDIOVASCULAR SYSTEM: PMI not localized. S1, S2. No additional sounds. ABDOMEN: Normoactive bowel sounds. No tenderness. No organomegaly. No masses. EXTREMITIES: No cyanosis, no clubbing, no edema. 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 No neurological deficit could be appreciated. ASSESSMENT: 1. Acute exacerbation of congestive heart failure, both systolic and diastolic. 2. Exacerbation of chronic obstructive pulmonary disease. 3. Hypertension. 4. Type 2 diabetes mellitus. 5. Hypothyroidism. 6. Epigastric pain, rule out mesenteric ischemia. PLAN: Follow the results of the Doppler study to rule out mesenteric ischemia. Continue current medications including antibiotics and taper steroids as tolerated. Carlos Monson MD
[2017-11-25] MEDS: (Lantus) Insulin Glargine, Recombinant SC SCH (08:20)
[2017-11-25] MEDS: Levothyroxine 50 MCG TAB PO SCH (08:20)
[2017-11-25] MEDS: (Novolog) Insulin Aspart, Recombinant 100 u/ml 10 ml vial SC SCH ×4 (08:21→22:00)
[2017-11-25] MEDS: Pantoprazole 40 mg EC Tab PO SCH (09:26)
[2017-11-25 12:26] LABS: BLOOD UREA NITROGEN 25 mg/dL (9-20); CALCIUM 9.3 mg/dl (8.6-10.4); GFR AFRICAN-AMERICAN > 60; GFR NON-AFRICAN AMERICAN > 60
--- NOTE | 2017-11-25 21:59 | CP.PCM.PN ---
Subjective - Date & Time of Evaluation Date of Evaluation: 11/25/17 Time of Evaluation: 19:45 - Subjective Subjective: Patient seen and examined Clinically much better Less shortness of breath Afebrile Objective - Vital Signs/Intake and Output Vital Signs (last 24 hours): Temp Pulse Resp BP Pulse Ox 98.2 F 87 20 141/86 98 11/25/17 15:40 11/25/17 15:40 11/25/17 15:40 11/25/17 15:40 11/25/17 15:40 Intake and Output: 11/25/17 11/26/17 18:59 06:59 Intake Total 320 Balance 320 - Medications Medications: Current Medications Albuterol/Ipratropium (Duoneb 3 Mg/0.5 Mg (3 Ml) Ud) 3 ml INH RQ4 [facility] Last Admin: 11/25/17 20:01 Dose: 3 ml Amiodarone HCl (Cordarone) 200 mg PO DAILY [facility] Last Admin: 11/25/17 09:27 Dose: 200 mg Bisoprolol Fumarate (Zebeta) 5 mg PO DAILY [facility] Last Admin: 11/25/17 09:27 Dose: 5 mg Budesonide (Pulmicort Respules) 0.5 mg INH RQ12 [facility] Last Admin: 11/25/17 20:01 Dose: 0.5 mg Cyclobenzaprine HCl (Flexeril) 5 mg PO HS [facility] Last Admin: 11/24/17 22:23 Dose: 5 mg Furosemide (Lasix) 20 mg IVP Q12 [facility] Last Admin: 11/25/17 12:53 Dose: 20 mg Aztreonam 1 gm/ Sodium (Chloride) 100 mls @ 100 mls/hr IVPB Q8H [facility] PRN Reason: Protocol Last Admin: 11/25/17 13:36 Dose: 100 mls/hr Insulin Aspart (Novolog) 0 unit SC ACHS [facility] PRN Reason: Protocol Last Admin: 11/25/17 18:00 Dose: 4 u Insulin Glargine (Lantus) 20 unit SC PCB [facility] Last Admin: 11/25/17 08:20 Dose: 20 u Levothyroxine Sodium (Synthroid) 50 mcg PO DAILY@0630 [facility] Last Admin: 11/25/17 08:20 Dose: 50 mcg Losartan Potassium (Cozaar) 50 mg PO BID [facility] Last Admin: 11/25/17 17:59 Dose: 50 mg Pantoprazole Sodium (Protonix Ec Tab) 40 mg PO DAILY [facility] Last Admin: 11/25/17 09:26 Dose: 40 mg Prednisone (Prednisone Tab) 40 mg PO DAILY [facility] Rivaroxaban (Xarelto) 15 mg PO HS [facility] Last Admin: 11/24/17 22:27 Dose: 15 mg Rosuvastatin Calcium (Crestor) 20 mg PO HS [facility] Last Admin: 11/24/17 22:24 Dose: 20 mg Spironolactone (Aldactone) 25 mg PO DAILY [facility] Last Admin: 11/25/17 09:27 Dose: 25 mg - Labs Labs: 11/24/17 08:37 11/25/17 11:44 PT 15.8 SECONDS (9.7-12.2) H 11/21/17 04:43 INR 1.4 11/21/17 04:43 APTT 42 SECONDS (21-34) H 11/21/17 04:43 - Head Exam Head Exam: ATRAUMATIC, NORMOCEPHALIC - ENT Exam ENT Exam: Mucous Membranes Moist - Neck Exam Neck Exam: Normal Inspection - Respiratory Exam Respiratory Exam: Clear to Ausculation Bilateral - Cardiovascular Exam Cardiovascular Exam: REGULAR RHYTHM Assessment and Plan (1) COPD exacerbation Assessment & Plan: Continue present treatment Consider to DC antibiotics Normal pro calcitonin level Status: Acute (2) CHF exacerbation Status: Acute (3) Lung nodule < 6cm on CT Status: Acute
[2017-11-26] MEDS: Albuterol-Ipratrop 3 mg / 0.5 (3 ml) UD INH SCH ×6 (03:41→23:39)
[2017-11-26] MEDS: Aztreonam 1 GM in Sodium Chloride 0.9% 100 ML IVPB SCH ×3 (05:28→22:02)
[2017-11-26] MEDS: Levothyroxine 50 MCG TAB PO SCH (05:30)
[2017-11-26] MEDS: Budesonide 0.5 mg/2 ml Inhal Susp UD INH SCH ×2 (08:03→20:08)
[2017-11-26] MEDS: (Lantus) Insulin Glargine, Recombinant SC SCH (08:22)
[2017-11-26] MEDS: (Novolog) Insulin Aspart, Recombinant 100 u/ml 10 ml vial SC SCH ×4 (08:22→21:59)
[2017-11-26] MEDS: Pantoprazole 40 mg EC Tab PO SCH (09:30)
[2017-11-27] MEDS: Albuterol-Ipratrop 3 mg / 0.5 (3 ml) UD INH SCH ×5 (03:21→19:35)
[2017-11-27] MEDS: Aztreonam 1 GM in Sodium Chloride 0.9% 100 ML IVPB SCH ×3 (05:26→21:37)
[2017-11-27] MEDS: Levothyroxine 50 MCG TAB PO SCH (05:32)
[2017-11-27] MEDS: Budesonide 0.5 mg/2 ml Inhal Susp UD INH SCH ×2 (08:07→19:35)
[2017-11-27] MEDS: (Novolog) Insulin Aspart, Recombinant 100 u/ml 10 ml vial SC SCH ×4 (08:57→21:40)
[2017-11-27] MEDS: (Lantus) Insulin Glargine, Recombinant SC SCH (09:31)
[2017-11-27] MEDS: Pantoprazole 40 mg EC Tab PO SCH (09:33)
--- NOTE | 2017-11-27 10:17 | VASCLAB ---
Date of service: 11/24/2017 PROCEDURE: HISTORY: r/o mesenteric ischemia COMPARISON: None available. TECHNIQUE: Grayscale and duplex Doppler evaluation of the mesenteric arteries. Report prepared by KIRAN Colunga, RVT FINDINGS: * Suprarenal: Peak Systolic Velocity - 78: Doppler Waveform: : EDV- * Celiac: o Proximal Celiac : Peak Systolic Velocity - : Doppler Waveform: : EDV- o Distal Celiac: Peak Systolic Velocity - : Doppler Waveform: : EDV- * Proximal Hepatic: Peak Systolic Velocity - : Doppler Waveform: : EDV- * Proximal Splenic: Peak Systolic Velocity - : Doppler Waveform: : EDV- * Mesenteric o Proximal Superior Mesenteric: Peak Systolic Velocity - 238: Doppler Waveform: Triphasic.: EDV- o Mid Superior Mesenteric: Peak Systolic Velocity - 126: Doppler Waveform: Triphasic.: EDV- o Distal Superior Mesenteric: Peak Systolic Velocity - 83: Doppler Waveform: Triphasic.: EDV- o Proximal Inferior Mesenteric: Peak Systolic Velocity - 286: Doppler Waveform: Triphasic.: EDV- OTHER FINDINGS: Technically difficult and limited study due to patient body habitus and breathing pattern. IMPRESSION: Significant increase velocity noted at the proximal inferior mesenteric artery. Evaluation reveals no evidence of increased velocities of the superior mesenteric, mid superior mesenteric, distal superior mesenteric artery. Unable to visualize the celiac, proximal hepatic, proximal splenic arteries
--- NOTE | 2017-11-27 12:49 | PN ---
Copied To: Carlos Monson MD Attending MD: Carlos Monson MD DATE: 11/24/2017 SUBJECTIVE: He is in mild shortness of breath during exertion. PHYSICAL EXAMINATION VITAL SIGNS: Blood pressure is 141/86, temperature 98.2, respiratory rate 20, and pulse 87. HEENT: Pupils equal, reactive to light. Normal-appearing mucosa of the conjunctivae, oropharynx, and nasal membrane mucosa. NECK: Supple. No JVD. No carotid bruit. No lymph node. No thyromegaly. CHEST AND LUNGS: Bilateral symmetrical expansion. Scattered rhonchi all over lung kebede. CARDIOVASCULAR: PMI not localized. S1, S2. No additional sounds. ABDOMEN: Normoactive bowel sounds. No tenderness. No organomegaly. No masses. EXTREMITIES: No cyanosis. No clubbing. No edema. 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 No neurological deficit could be appreciated. ASSESSMENT: Exacerbation of chronic obstructive pulmonary disease/congestive heart failure, acute on top of chronic systolic heart failure, status post pacemaker and implantable cardioverter defibrillator placement, hypertension, hypothyroidism. PLAN: Continue current medications and taper steroids and follow Cardiology and Pulmonary recommendations and follow the mesenteric Doppler study that was done to rule out any mesenteric ischemia. Carlos Monson MD
--- NOTE | 2017-11-27 13:59 | CP.PCM.CON ---
<Nilay Dooley - Last Filed: 11/27/17 16:45> History of Present Illness - History of Present Illness History of Present Illness: PGY-4 GI Fellow Initial Consult Note Mr. Lin is a 67 yo Hisp M with CHF s/p ICD/PPM, COPD, DM, pAF (on apixaban), h /o Tob abuse (quit 2007) who was admitted on 11/21/17 for COPD/CHF exacerbation. During his stay, he complained of some abdominal pain for which an Abdominal Duplex was performed which revealed increased velocity seen at JULIET. Therefore, GI consulted for further evaluation/recs. He stated that he has some chronic abdominal discomfort that he describes at "feeling like a ball" in his epigastrum. States it is not exactly painful per se. He thinks it's worse with lying flat at night where he also feels some associated shortness of breath with it. States symptoms have been going on for the last year, intermittent in nature but thinks that they may be becoming more frequent. He reports a "sliding feelin" on his insides. He denies any relation to food intake, dysphagia, odynophagia, early satiety or decreased appetite. States that he has formed brown bowel movements nearly everyday, denying any N/V, melena, hematochezia or weight loss. States that he had never had any EGD/CSPY before. 12 point ROS negative other than stated above MHx: See above SurgHx: Heart Cath Meds: Reviewed in [facility] FamHx: Heart problems, denied GI/Liver issues SocHx: >25 pack years but quit in 2007, Denied EtOH and Illicits All: PCN, ASA Past Patient History - Infectious Disease Hx of Infectious Diseases: None - Past Medical History & Family History Past Medical History?: Yes - Past Social History Smoking Status: Former Smoker - CARDIAC Hx Atrial Fibrillation: Yes Hx Congestive Heart Failure: Yes Hx Hypertension: Yes Hx Pacemaker: Yes - PULMONARY Hx Asthma: Yes Hx Chronic Obstructive Pulmonary Disease (COPD): Yes - NEUROLOGICAL Hx Neurological Disorder: No - HEENT Hx HEENT Problems: No - RENAL Hx Chronic Kidney Disease: No - ENDOCRINE/METABOLIC Hx Endocrine Disorders: Yes Hx Diabetes Mellitus Type 2: Yes - HEMATOLOGICAL/ONCOLOGICAL Hx Blood Disorders: No - INTEGUMENTARY Hx Dermatological Problems: No - MUSCULOSKELETAL/RHEUMATOLOGICAL Hx Musculoskeletal Disorders: No Hx Falls: No - GASTROINTESTINAL Hx Gastrointestinal Disorders: No - GENITOURINARY/GYNECOLOGICAL Hx Genitourinary Disorders: No - PSYCHIATRIC Hx Substance Use: No - SURGICAL HISTORY Hx Surgeries: Yes Other/Comment: Pacemaker insertion - ANESTHESIA Hx Anesthesia: Yes Hx Anesthesia Reactions: No Meds Allergies/Adverse Reactions: Allergies Allergy/AdvReac Type Severity Reaction Status Date / Time Penicillins Allergy Verified 09/15/17 06:47 aspirin AdvReac Verified 11/21/17 04:29 - Medications Medications: Current Medications Albuterol/Ipratropium (Duoneb 3 Mg/0.5 Mg (3 Ml) Ud) 3 ml INH RQ4 [facility] Last Admin: 11/27/17 08:07 Dose: 3 ml Amiodarone HCl (Cordarone) 200 mg PO DAILY [facility] Last Admin: 11/27/17 09:32 Dose: 200 mg Bisoprolol Fumarate (Zebeta) 5 mg PO DAILY [facility] Last Admin: 11/26/17 09:30 Dose: 5 mg Budesonide (Pulmicort Respules) 0.5 mg INH RQ12 [facility] Last Admin: 11/27/17 08:07 Dose: 0.5 mg Cyclobenzaprine HCl (Flexeril) 5 mg PO HS [facility] Last Admin: 11/26/17 22:01 Dose: 5 mg Furosemide (Lasix) 20 mg IVP Q12 [facility] Last Admin: 11/27/17 09:30 Dose: 20 mg Aztreonam 1 gm/ Sodium (Chloride) 100 mls @ 100 mls/hr IVPB Q8H [facility] PRN Reason: Protocol Last Admin: 11/27/17 05:26 Dose: 100 mls/hr Insulin Aspart (Novolog) 0 unit SC ACHS [facility] PRN Reason: Protocol Last Admin: 11/27/17 12:52 Dose: 4 units Insulin Glargine (Lantus) 20 unit SC PCB [facility] Last Admin: 11/27/17 09:31 Dose: 20 units Levothyroxine Sodium (Synthroid) 50 mcg PO DAILY@0630 [facility] Last Admin: 11/27/17 05:32 Dose: 50 mcg Losartan Potassium (Cozaar) 50 mg PO BID [facility] Last Admin: 11/27/17 09:33 Dose: 50 mg Pantoprazole Sodium (Protonix Ec Tab) 40 mg PO DAILY [facility] Last Admin: 11/27/17 09:33 Dose: 40 mg Prednisone (Prednisone Tab) 40 mg PO DAILY [facility] Last Admin: 11/27/17 09:32 Dose: 40 mg Rivaroxaban (Xarelto) 15 mg PO [facility] Last Admin: 11/26/17 22:00 Dose: 15 mg Rosuvastatin Calcium (Crestor) 20 mg PO HS [facility] Last Admin: 11/26/17 22:01 Dose: 20 mg Spironolactone (Aldactone) 25 mg PO DAILY [facility] Last Admin: 11/27/17 09:32 Dose: 25 mg Physical Exam - Constitutional Appears: Well, Non-toxic, No Acute Distress - Head Exam Head Exam: ATRAUMATIC, NORMAL INSPECTION - Eye Exam Eye Exam: EOMI. absent: Conjunctival injection, Scleral icterus - ENT Exam ENT Exam: Mucous Membranes Moist, Normal External Ear Exam. absent: Mucous Membranes Dry - Respiratory Exam Respiratory Exam: Clear to Auscultation Bilateral, NORMAL BREATHING PATTERN. absent: Accessory Muscle Use, Wheezes - Cardiovascular Exam Cardiovascular Exam: REGULAR RHYTHM, RRR - GI/Abdominal Exam GI & Abdominal Exam: Distended (mildly), Normal Bowel Sounds, Soft, Tenderness ( mildly ttp in epigastrum w/o guarding). absent: Bruit, Diminished Bowel Sounds , Firm, Guarding, Hernia, Hyperactive Bowel Sounds, Hypoactive Bowel Sounds, Mass, Organomegaly, Pulsatile Mass, Rebound, Rigid - Rectal Exam Rectal Exam: Deferred - Extremities Exam Extremities exam: Positive for: normal inspection, pedal edema (+1 bilateral LE edema) - Neurological Exam Neurological exam: Alert, CN II-XII Intact, Oriented x3 - Psychiatric Exam Psychiatric exam: Normal Affect, Normal Mood - Skin Skin Exam: Dry, Intact, Normal Color, Warm Results - Vital Signs Recent Vital Signs: Last Vital Signs Temp 98.1 F 11/27/17 07:00 Pulse 84 11/27/17 07:00 Resp 20 11/27/17 07:00 BP 130/87 11/27/17 09:30 Pulse Ox 96 11/27/17 07:00 - Labs Result Diagrams: 11/24/17 08:37 11/25/17 11:44 Labs: Laboratory Results - last 24 hr 11/24/17 11/25/17 11/25/17 21:22 02:26 06:53 POC Glucose (mg/dL) 367 H 362 H 384 H 11/25/17 11/25/17 11/25/17 11:59 16:39 21:15 POC Glucose (mg/dL) 424 H* 288 H 215 H 11/26/17 11/26/17 11/26/17 07:06 11:50 17:36 POC Glucose (mg/dL) 232 H 296 H 405 H* 11/26/17 11/27/17 11/27/17 21:43 07:09 11:31 POC Glucose (mg/dL) 377 H 174 H 222 H 11/27/17 12:39 POC Glucose (mg/dL) 273 H Assessment & Plan - Assessment and Plan (Free Text) Assessment: 67 yo Hisp Male with CHF, COPD, DM admitted for CHF/COPD exacerbation complaining of abd discomfort, found to have elevated JULIET velocity on duplex. # Abd Pain: Exact etiology unclear. Despite increased velocity on Duplex of JULIET, pt does not report any relation to food intake and reports brown bowel movements. He does have risk factors for upper GI patholgy including h/o tob abuse, obesity and long stand GERD (suspected based on Pantoprazole on med list) . Symptoms could be related to CHF as pt know to have some issues with nausea in severe disease. # JULIET stenosis: Suggested by increased velocity seen on Duplex. No BRBPR. No previous CSPY. Is on anticoagulation for pAF and statin. Plan: - Recommend outpatient EGD+CSPY, though pt hesitant on the latter, once cardiopulmonary status improved - Continue control of DM, HTN and pAF - Can have Vasc Surg review case Thank you for the consult. Pt seen and examined with Dr. Torres. <Nestor Torres - Last Filed: 11/27/17 16:55> Meds - Medications Medications: Current Medications Albuterol/Ipratropium (Duoneb 3 Mg/0.5 Mg (3 Ml) Ud) 3 ml INH RQ4 [facility] Last Admin: 11/27/17 16:05 Dose: 3 ml Amiodarone HCl (Cordarone) 200 mg PO DAILY [facility] Last Admin: 11/27/17 09:32 Dose: 200 mg Bisoprolol Fumarate (Zebeta) 5 mg PO DAILY [facility] Last Admin: 11/27/17 09:33 Dose: 5 mg Budesonide (Pulmicort Respules) 0.5 mg INH RQ12 [facility] Last Admin: 11/27/17 08:07 Dose: 0.5 mg Cyclobenzaprine HCl (Flexeril) 5 mg PO HS [facility] Last Admin: 11/26/17 22:01 Dose: 5 mg Furosemide (Lasix) 20 mg IVP Q12 [facility] Last Admin: 11/27/17 09:30 Dose: 20 mg Aztreonam 1 gm/ Sodium (Chloride) 100 mls @ 100 mls/hr IVPB Q8H [facility] PRN Reason: Protocol Last Admin: 11/27/17 14:06 Dose: 100 mls/hr Insulin Aspart (Novolog) 0 unit SC ACHS [facility] PRN Reason: Protocol Last Admin: 11/27/17 12:52 Dose: 4 units Insulin Glargine (Lantus) 20 unit SC PCB [facility] Last Admin: 11/27/17 09:31 Dose: 20 units Levothyroxine Sodium (Synthroid) 50 mcg PO DAILY@0630 [facility] Last Admin: 11/27/17 05:32 Dose: 50 mcg Losartan Potassium (Cozaar) 50 mg PO BID [facility] Last Admin: 11/27/17 09:33 Dose: 50 mg Pantoprazole Sodium (Protonix Ec Tab) 40 mg PO DAILY [facility] Last Admin: 11/27/17 09:33 Dose: 40 mg Prednisone (Prednisone Tab) 40 mg PO DAILY [facility] Last Admin: 11/27/17 09:32 Dose: 40 mg Rivaroxaban (Xarelto) 15 mg PO HS [facility] Last Admin: 11/26/17 22:00 Dose: 15 mg Rosuvastatin Calcium (Crestor) 20 mg PO HS [facility] Last Admin: 11/26/17 22:01 Dose: 20 mg Spironolactone (Aldactone) 25 mg PO DAILY [facility] Last Admin: 11/27/17 09:32 Dose: 25 mg Results - Vital Signs Recent Vital Signs: Last Vital Signs Temp 97.6 F 11/27/17 16:00 Pulse 95 H 11/27/17 16:00 Resp 24 11/27/17 16:00 BP 124/79 11/27/17 16:00 Pulse Ox 96 11/27/17 16:00 - Labs Result Diagrams: 11/24/17 08:37 11/25/17 11:44 Labs: Laboratory Results - last 24 hr 11/24/17 11/25/17 11/25/17 21:22 02:26 06:53 POC Glucose (mg/dL) 367 H 362 H 384 H 11/25/17 11/25/17 11/25/17 11:59 16:39 21:15 POC Glucose (mg/dL) 424 H* 288 H 215 H 11/26/17 11/26/17 11/26/17 07:06 11:50 17:36 POC Glucose (mg/dL) 232 H 296 H 405 H* 11/26/17 11/27/17 11/27/17 21:43 07:09 11:31 POC Glucose (mg/dL) 377 H 174 H 222 H 11/27/17 12:39 POC Glucose (mg/dL) 273 H Attending/Attestation - Attestation I have personally seen and examined this patient.: Yes I have fully participated in the care of the patient.: Yes I have reviewed all pertinent clinical information: Yes Notes (Text): 11/27/17 16:50 I have seen and examined patient with GI fellow. Agree with above documentation with the following additions. In brief, this is a 67 year old male with history of CHF s/p ICD, COPD, atrial fibrillation on eliquis, DM, who initially presented to hospital with complaint of dyspnea on exertion and currently being treated for CHF exacerbation. GI called for evaluation of abdominal pain. He describes a "ball" like sensation in his epigastric region associated with intermittent pain which is worse at nighttime for the past one year. He denies associated nausea, vomiting, fever/chills, weight loss, melena , NSAID use, or change in bowel habits. No prior endoscopic evaluation. Review of vitals from today are normal. CHF s/p ICD COPD Atrial fibrillation on eliquis DM Dyspnea - CHF exacerbation Abdominal pain - duplex imaging reviewed by me showing increased velocity at JULIET - Low sodium diet as tolerated - Continue with PPI therapy - Obtain serum lactate level - Follow up vascular surgery recommendations - Maintain strict glycemic control as uncontrolled diabetes may result in gastroparesis with similar abdominal pain - Patient would ultimately benefit from outpatient elective EGD and screening colonoscopy following resolution of acute cardiac issues. No planned GI intervention, will sign off case. Please reconsult as necessary, thank you.
--- NOTE | 2017-11-27 16:34 | CP.PCM.CON ---
History of Present Illness - History of Present Illness History of Present Illness: VASCULAR SURGERY CONSULT NOTE FOR DR. GILES 67 yo M with CHF s/p ICD/PPM, COPD, DM, paroxysmal A fib (on apixaban), who was admitted on 11/21/17 for COPD/CHF exacerbation. During his stay, he complained of some epigastric abdominal pain for which an Abdominal Duplex was performed which revealed increased velocity seen at JULIET. Currently, pt states that he does not have any abdominal pain at all and is only here for his breathing. Pt states that he has had intermittent epigastric pain on and off for about 2 weeks. He denies nausea or vomiting. The pain is unrelated to eating and he is eating normally. Having normal bowel movements, no diarrhea, no bloody BMs. He is passing flatus. He reports the pain comes on at night and may be associated with his SOB. Pt states that he has never had a colonoscopy or endoscopy and that he does not wish for one. PMHx: CHF s/p ICD/PPM, COPD, DM, paroxysmal A fib (on apixaban) SurgHx: Heart Cath, pacemaker Meds: Reviewed in [facility] SocHx: >25 pack years but quit in 2007, Denied EtOH and Illicits All: PCN, ASA Review of Systems - Review of Systems All systems: reviewed and no additional remarkable complaints except (as per HPI ) Past Patient History - Infectious Disease Hx of Infectious Diseases: None - Past Medical History & Family History Past Medical History?: Yes - Past Social History Smoking Status: Former Smoker - CARDIAC Hx Atrial Fibrillation: Yes Hx Congestive Heart Failure: Yes Hx Hypertension: Yes Hx Pacemaker: Yes - PULMONARY Hx Asthma: Yes Hx Chronic Obstructive Pulmonary Disease (COPD): Yes - NEUROLOGICAL Hx Neurological Disorder: No - HEENT Hx HEENT Problems: No - RENAL Hx Chronic Kidney Disease: No - ENDOCRINE/METABOLIC Hx Endocrine Disorders: Yes Hx Diabetes Mellitus Type 2: Yes - HEMATOLOGICAL/ONCOLOGICAL Hx Blood Disorders: No - INTEGUMENTARY Hx Dermatological Problems: No - MUSCULOSKELETAL/RHEUMATOLOGICAL Hx Musculoskeletal Disorders: No Hx Falls: No - GASTROINTESTINAL Hx Gastrointestinal Disorders: No - GENITOURINARY/GYNECOLOGICAL Hx Genitourinary Disorders: No - PSYCHIATRIC Hx Substance Use: No - SURGICAL HISTORY Hx Surgeries: Yes Other/Comment: Pacemaker insertion - ANESTHESIA Hx Anesthesia: Yes Hx Anesthesia Reactions: No Meds Allergies/Adverse Reactions: Allergies Allergy/AdvReac Type Severity Reaction Status Date / Time Penicillins Allergy Verified 09/15/17 06:47 aspirin AdvReac Verified 11/21/17 04:29 - Medications Medications: Current Medications Albuterol/Ipratropium (Duoneb 3 Mg/0.5 Mg (3 Ml) Ud) 3 ml INH RQ4 [facility] Last Admin: 11/27/17 16:05 Dose: 3 ml Amiodarone HCl (Cordarone) 200 mg PO DAILY [facility] Last Admin: 11/27/17 09:32 Dose: 200 mg Bisoprolol Fumarate (Zebeta) 5 mg PO DAILY [facility] Last Admin: 11/27/17 09:33 Dose: 5 mg Budesonide (Pulmicort Respules) 0.5 mg INH RQ12 [facility] Last Admin: 11/27/17 08:07 Dose: 0.5 mg Cyclobenzaprine HCl (Flexeril) 5 mg PO HS [facility] Last Admin: 11/26/17 22:01 Dose: 5 mg Furosemide (Lasix) 20 mg IVP Q12 [facility] Last Admin: 11/27/17 09:30 Dose: 20 mg Aztreonam 1 gm/ Sodium (Chloride) 100 mls @ 100 mls/hr IVPB Q8H [facility] PRN Reason: Protocol Last Admin: 11/27/17 14:06 Dose: 100 mls/hr Insulin Aspart (Novolog) 0 unit SC ACHS [facility] PRN Reason: Protocol Last Admin: 11/27/17 12:52 Dose: 4 units Insulin Glargine (Lantus) 20 unit SC PCB [facility] Last Admin: 11/27/17 09:31 Dose: 20 units Levothyroxine Sodium (Synthroid) 50 mcg PO DAILY@0630 [facility] Last Admin: 11/27/17 05:32 Dose: 50 mcg Losartan Potassium (Cozaar) 50 mg PO BID [facility] Last Admin: 11/27/17 09:33 Dose: 50 mg Pantoprazole Sodium (Protonix Ec Tab) 40 mg PO DAILY [facility] Last Admin: 11/27/17 09:33 Dose: 40 mg Prednisone (Prednisone Tab) 40 mg PO DAILY [facility] Last Admin: 11/27/17 09:32 Dose: 40 mg Rivaroxaban (Xarelto) 15 mg PO HS [facility] Last Admin: 11/26/17 22:00 Dose: 15 mg Rosuvastatin Calcium (Crestor) 20 mg PO HS [facility] Last Admin: 11/26/17 22:01 Dose: 20 mg Spironolactone (Aldactone) 25 mg PO DAILY [facility] Last Admin: 11/27/17 09:32 Dose: 25 mg Physical Exam - Constitutional Appears: Non-toxic, No Acute Distress - Head Exam Head Exam: ATRAUMATIC, NORMAL INSPECTION - Eye Exam Eye Exam: EOMI, Normal appearance - Respiratory Exam Respiratory Exam: NORMAL BREATHING PATTERN. absent: Respiratory Distress - Cardiovascular Exam Cardiovascular Exam: +S1, +S2 - GI/Abdominal Exam GI & Abdominal Exam: Distended, Soft, Tenderness (mild tenderness to epigastric region to deep palpation only). absent: Firm, Guarding, Hernia, Rebound, Rigid - Neurological Exam Neurological exam: Alert, CN II-XII Intact, Oriented x3 - Psychiatric Exam Psychiatric exam: Normal Affect, Normal Mood - Skin Skin Exam: Dry, Normal Color, Warm Results - Vital Signs Recent Vital Signs: Last Vital Signs Temp 98.1 F 11/27/17 07:00 Pulse 85 11/27/17 07:02 Resp 20 11/27/17 07:00 BP 130/87 11/27/17 09:30 Pulse Ox 96 11/27/17 07:00 - Labs Result Diagrams: 11/24/17 08:37 11/25/17 11:44 Labs: Laboratory Results - last 24 hr 11/24/17 11/25/17 11/25/17 21:22 02:26 06:53 POC Glucose (mg/dL) 367 H 362 H 384 H 11/25/17 11/25/17 11/25/17 11:59 16:39 21:15 POC Glucose (mg/dL) 424 H* 288 H 215 H 11/26/17 11/26/17 11/26/17 07:06 11:50 17:36 POC Glucose (mg/dL) 232 H 296 H 405 H* 11/26/17 11/27/17 11/27/17 21:43 07:09 11:31 POC Glucose (mg/dL) 377 H 174 H 222 H 11/27/17 12:39 POC Glucose (mg/dL) 273 H Assessment & Plan - Assessment and Plan (Free Text) Assessment: 67 yo M with CHF, COPD, DM, paroxysmal A fib (on apixaban), who was admitted on 11/21/17 for COPD/CHF exacerbation. Also having intermittent epigastric pain. Duplex showed increased velocity of JULIET. Surgery consulted to rule out mesenteric ischemia. - Afebrile, VSS - Stat labs ordered with lactic - CTA ordered - Discussed plan with Dr. Chi Rich PGY-4
--- NOTE | 2017-11-27 18:29 | CP.PCM.PN ---
Subjective - Date & Time of Evaluation Date of Evaluation: 11/27/17 Time of Evaluation: 11:45 - Subjective Subjective: patient seen and examined Still complaining of epigastric discomfort Could not sleep last night because of shortness of breath Afebrile Objective - Vital Signs/Intake and Output Vital Signs (last 24 hours): Temp Pulse Resp BP Pulse Ox 97.6 F 95 H 24 124/79 96 11/27/17 16:00 11/27/17 16:00 11/27/17 16:00 11/27/17 16:00 11/27/17 16:00 - Medications Medications: Current Medications Albuterol/Ipratropium (Duoneb 3 Mg/0.5 Mg (3 Ml) Ud) 3 ml INH RQ4 [facility] Last Admin: 11/27/17 16:05 Dose: 3 ml Amiodarone HCl (Cordarone) 200 mg PO DAILY [facility] Last Admin: 11/27/17 09:32 Dose: 200 mg Bisoprolol Fumarate (Zebeta) 5 mg PO DAILY [facility] Last Admin: 11/27/17 09:33 Dose: 5 mg Budesonide (Pulmicort Respules) 0.5 mg INH RQ12 [facility] Last Admin: 11/27/17 08:07 Dose: 0.5 mg Cyclobenzaprine HCl (Flexeril) 5 mg PO HS [facility] Last Admin: 11/26/17 22:01 Dose: 5 mg Furosemide (Lasix) 20 mg IVP Q12 [facility] Last Admin: 11/27/17 09:30 Dose: 20 mg Aztreonam 1 gm/ Sodium (Chloride) 100 mls @ 100 mls/hr IVPB Q8H [facility] PRN Reason: Protocol Last Admin: 11/27/17 14:06 Dose: 100 mls/hr Insulin Aspart (Novolog) 0 unit SC ACHS [facility] PRN Reason: Protocol Last Admin: 11/27/17 12:52 Dose: 4 units Insulin Glargine (Lantus) 20 unit SC PCB [facility] Last Admin: 11/27/17 09:31 Dose: 20 units Levothyroxine Sodium (Synthroid) 50 mcg PO DAILY@0630 [facility] Last Admin: 11/27/17 05:32 Dose: 50 mcg Losartan Potassium (Cozaar) 50 mg PO BID [facility] Last Admin: 11/27/17 09:33 Dose: 50 mg Pantoprazole Sodium (Protonix Ec Tab) 40 mg PO DAILY [facility] Last Admin: 11/27/17 09:33 Dose: 40 mg Prednisone (Prednisone Tab) 40 mg PO DAILY [facility] Last Admin: 11/27/17 09:32 Dose: 40 mg Rivaroxaban (Xarelto) 15 mg PO [facility] Last Admin: 11/26/17 22:00 Dose: 15 mg Rosuvastatin Calcium (Crestor) 20 mg PO HS [facility] Last Admin: 11/26/17 22:01 Dose: 20 mg Spironolactone (Aldactone) 25 mg PO DAILY [facility] Last Admin: 11/27/17 09:32 Dose: 25 mg - Labs Labs: 11/24/17 08:37 11/25/17 11:44 PT 15.8 SECONDS (9.7-12.2) H 11/21/17 04:43 INR 1.4 11/21/17 04:43 APTT 42 SECONDS (21-34) H 11/21/17 04:43 - Head Exam Head Exam: ATRAUMATIC, NORMOCEPHALIC - ENT Exam ENT Exam: Mucous Membranes Moist - Neck Exam Neck Exam: Normal Inspection - Respiratory Exam Respiratory Exam: Decreased Breath Sounds - Cardiovascular Exam Cardiovascular Exam: REGULAR RHYTHM - GI/Abdominal Exam GI & Abdominal Exam: Soft Assessment and Plan (1) COPD exacerbation Assessment & Plan: Prednisone in tapering dose Nebulizer treatment Budesonide Discontinue Azactam Status: Acute (2) CHF exacerbation Status: Acute (3) Lung nodule < 6cm on CT Status: Acute
[2017-11-27] MEDS ORDERED: Iodixanol 320 MG/ML 100 ML BOTTLE IV ONE (18:44)
[2017-11-27 18:56] LABS: LYMPH # 0.6 K/uL (1.0-4.3); LYMPH % 3.1 % (20.0-40.0); MEAN CELL VOLUME 91.9 fL (80.0-94.0); MEAN CORPUSCULAR HEMOGLOBIN 29.6 pg (27.0-31.0); MEAN CORPUSCULAR HGB CONC 32.3 g/dL (33.0-37.0); MEAN PLATELET VOLUME 8.8 fL (7.2-11.7); MONO # 0.7 K/uL (0.0-0.8); MONO % 3.9 % (0.0-10.0); NRBC % 0.1 % (0.0-2.0); PLATELET COUNT 250 K/uL (130-400); RBC 4.71 Mil/uL (4.40-5.90); RED CELL DISTRIBUTION WIDTH 14.4 % (11.5-14.5); WHITE BLOOD COUNT 18.3 K/uL (4.8-10.8)
[2017-11-27 19:00] LABS: CALCIUM 8.7 mg/dl (8.6-10.4)
[2017-11-27 19:22] LABS: LYMPHOCYTE 5 % (20-40); MONOCYTE 5 % (0-10); NEUTROPHIL 90 % (50-75); PLATELET ESTIMATE NORMAL (NORMAL); TOTAL CELLS COUNTED 100
--- NOTE | 2017-11-27 20:34 | PN ---
Copied To: Carlos Monson MD Attending MD: Carlos Monson MD DATE: 11/27/2017 SUBJECTIVE: He is still having exertional shortness of breath. Vascular study of the abdomen was done that showed significant increase in the velocity in the proximal inferior mesenteric artery. PHYSICAL EXAMINATION VITAL SIGNS: Blood pressure 124/79, temperature 97.6, respiratory rate 24, and pulse is 90. HEENT: Pupils equal, reactive to light. Normal-appearing mucosa of the conjunctivae, oropharynx and nasal membrane mucosa. NECK: Supple. No JVD. No carotid bruit. No lymph node. No thyromegaly. CHEST AND LUNGS: Bilateral symmetrical expansion. Good air exchange. Bilateral scattered rhonchi. CARDIOVASCULAR: PMI not localized. S1, S2. No additional sounds. ABDOMEN: Normoactive bowel sounds. No tenderness. No organomegaly. No masses. EXTREMITIES: No cyanosis. No clubbing. No edema. 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 No neurological deficit could be appreciated. ASSESSMENT: 1. Epigastric pain, likely mesenteric ischemia. 2. Exacerbation of chronic obstructive pulmonary disease. 3. Acute on chronic exacerbation of congestive heart failure. 4. Hypertension. 5. Hypothyroidism. 6. Uncontrolled type 2 diabetes mellitus. PLAN: We will do Vascular Surgery consult. Continue current medications and follow recommendations of the Cardiology and manager strategic marketing. Carlos Monson MD
[2017-11-28] MEDS: Albuterol-Ipratrop 3 mg / 0.5 (3 ml) UD INH SCH ×5 (00:09→15:57)
[2017-11-28 01:05] VITALS: RESP 20
[2017-11-28] MEDS: Aztreonam 1 GM in Sodium Chloride 0.9% 100 ML IVPB SCH ×2 (06:48→14:05)
[2017-11-28] MEDS: Levothyroxine 50 MCG TAB PO SCH (07:16)
[2017-11-28] MEDS: Budesonide 0.5 mg/2 ml Inhal Susp UD INH SCH (07:33)
[2017-11-28] MEDS: (Novolog) Insulin Aspart, Recombinant 100 u/ml 10 ml vial SC SCH ×3 (08:05→17:25)
[2017-11-28] MEDS: (Lantus) Insulin Glargine, Recombinant SC SCH (09:41)
[2017-11-28] MEDS: Pantoprazole 40 mg EC Tab PO SCH (09:44)
--- NOTE | 2017-11-28 11:17 | CP.PCM.PN ---
Subjective - Date & Time of Evaluation Date of Evaluation: 11/28/17 Time of Evaluation: 11:12 - Subjective Subjective: Vascular Surgery Progress Note for Dr. Mireles Patient was seen and examined today at bedside in no acute distress. Nurse reports no overnight events. Patient doesn't complain of any new issues. Still complains of inability to take deep inspirations due to epigastric pain. Denies CP, SOB, f/c, n/v, c/d. Objective - Vital Signs/Intake and Output Vital Signs (last 24 hours): Temp Pulse Resp BP Pulse Ox 97.9 F 88 20 120/78 97 11/28/17 07:00 11/28/17 07:00 11/28/17 07:00 11/28/17 09:45 11/28/17 07:00 - Medications Medications: Current Medications Albuterol/Ipratropium (Duoneb 3 Mg/0.5 Mg (3 Ml) Ud) 3 ml INH RQ4 [facility] Last Admin: 11/28/17 07:33 Dose: 3 ml Amiodarone HCl (Cordarone) 200 mg PO DAILY [facility] Last Admin: 11/28/17 09:42 Dose: 200 mg Bisoprolol Fumarate (Zebeta) 5 mg PO DAILY [facility] Last Admin: 11/28/17 09:45 Dose: 5 mg Budesonide (Pulmicort Respules) 0.5 mg INH RQ12 [facility] Last Admin: 11/28/17 07:33 Dose: 0.5 mg Cyclobenzaprine HCl (Flexeril) 5 mg PO HS [facility] Last Admin: 11/27/17 22:21 Dose: Not Given Furosemide (Lasix) 20 mg IVP Q12 [facility] Last Admin: 11/28/17 09:45 Dose: 20 mg Aztreonam 1 gm/ Sodium (Chloride) 100 mls @ 100 mls/hr IVPB Q8H [facility] PRN Reason: Protocol Last Admin: 11/28/17 06:48 Dose: 100 mls/hr Insulin Aspart (Novolog) 0 unit SC ACHS [facility] PRN Reason: Protocol Last Admin: 11/28/17 08:05 Dose: 2 units Insulin Glargine (Lantus) 20 unit SC PCB [facility] Last Admin: 11/28/17 09:41 Dose: 20 units Levothyroxine Sodium (Synthroid) 50 mcg PO DAILY@0630 [facility] Last Admin: 11/28/17 07:16 Dose: 50 mcg Losartan Potassium (Cozaar) 50 mg PO BID [facility] Last Admin: 11/28/17 09:43 Dose: 50 mg Pantoprazole Sodium (Protonix Ec Tab) 40 mg PO DAILY [facility] Last Admin: 11/28/17 09:44 Dose: 40 mg Prednisone (Prednisone Tab) 40 mg PO DAILY [facility] Last Admin: 11/28/17 09:43 Dose: 40 mg Rivaroxaban (Xarelto) 15 mg PO HS [facility] Last Admin: 11/27/17 22:13 Dose: 15 mg Rosuvastatin Calcium (Crestor) 20 mg PO HS [facility] Last Admin: 11/27/17 21:39 Dose: 20 mg Spironolactone (Aldactone) 25 mg PO DAILY [facility] Last Admin: 11/28/17 09:44 Dose: 25 mg - Labs Labs: 11/27/17 18:53 11/27/17 18:38 PT 15.8 SECONDS (9.7-12.2) H 11/21/17 04:43 INR 1.4 11/21/17 04:43 APTT 42 SECONDS (21-34) H 11/21/17 04:43 - Constitutional Appears: Non-toxic, No Acute Distress - Head Exam Head Exam: ATRAUMATIC, NORMOCEPHALIC - Eye Exam Eye Exam: EOMI, Normal appearance - ENT Exam ENT Exam: Mucous Membranes Moist, Normal Exam - Respiratory Exam Respiratory Exam: NORMAL BREATHING PATTERN. absent: Rales, Stridor - Cardiovascular Exam Cardiovascular Exam: +S1, +S2 - GI/Abdominal Exam GI & Abdominal Exam: Distended, Soft. absent: Firm, Guarding, Tenderness - Neurological Exam Neurological Exam: Alert, Awake, Oriented x3 - Psychiatric Exam Psychiatric exam: Normal Affect, Normal Mood - Skin Skin Exam: Dry, Intact, Normal Color, Warm Assessment and Plan - Assessment and Plan (Free Text) Assessment: 67yoM PMH CHF, COPD, DM, paroxysmal Afib (on apixaban) admitted for COPD/CHF exacerbation. Surgery consulted to r/o mesenteric ischemia 2/2 duplex showing increased velocity of JULIET. Plan: - afebrile, VSS - labs appreciated, lactic acid 3.2 - CTA appreciated - negative findings - no surgical intervention at this time - will sign off - please reconsult if necessary - d/w Dr. Chi Zarate PGY1
--- NOTE | 2017-11-28 11:38 | CT ---
Date of service: 11/27/2017 PROCEDURE: CT angiogram Abdomen and Pelvis with contrast HISTORY: JULIET stenosis, possible mesenteric ischemia COMPARISON: Comparison is made with 11/21/ TECHNIQUE: Contrast dose: 100 mL Visipaque 320. Axial and reformatted coronal and sagittal CT angiogram images of the abdomen and pelvis were obtained after IV contrast administration. Radiation dose: Total exam DLP = 1104.8 mGy-cm. This CT exam was performed using one or more of the following dose reduction techniques: Automated exposure control, adjustment of the mA and/or kV according to patient size, and/or use of iterative reconstruction technique. FINDINGS: LOWER THORAX: There are bilateral pleural effusions larger on the right. Cardiomegaly is also noted. Mild pulmonary vascular congestion is also noted. LIVER: Fatty liver infiltration is noted. No evidence of discrete liver mass GALLBLADDER AND BILE DUCTS: Unremarkable. PANCREAS: Unremarkable. No gross lesion or ductal dilatation. SPLEEN: Unremarkable. ADRENALS: Unremarkable. No mass. KIDNEYS AND URETERS: Unremarkable. No hydronephrosis. No solid mass. VASCULATURE: Unremarkable. No aortic aneurysm. BOWEL: Dgnd-ly-fbjbgynk constipation is noted. Colonic diverticulosis are seen without evidence of diverticulitis. . No obstruction. No gross mural thickening. No evidence of colitis or enteritis. No evidence of pneumatosis or ischemic changes in the large and small bowel loops. The stomach is mildly to moderately distended. APPENDIX: No evidence of appendicitis. PERITONEUM: Unremarkable. No free fluid. No free air. LYMPH NODES: Unremarkable. No enlarged lymph nodes. BLADDER: Unremarkable. REPRODUCTIVE: The prostate is mildly enlarged. BONES: No acute fracture. OTHER FINDINGS: No evidence of significant stenosis at the origin and proximal portion of the celiac and SMA. The JULIET is also patent. There is fat containing left inguinal hernia noted. IMPRESSION: No evidence of significant stenosis in the mesenteric arteries. No evidence of colitis or enteritis or ischemic changes in the bowel. Kfpf-te-ipphzwxd constipation. Jdzc-ae-mfhbzvah atherosclerotic disease. Bilateral pleural effusions larger on the right. Cardiomegaly. Preliminary report was submitted by [facility]
--- NOTE | 2017-11-28 16:00 | CP.PCM.PN ---
Subjective - Date & Time of Evaluation Date of Evaluation: 11/28/17 Time of Evaluation: 16:00 - Subjective Subjective: -FOLLOW UP WITH DR. BRINK IN THE OFFICE WITHIN 5-7 DAYS OR ON 12/27/17 ALREADY SCHEDULED---CALL THE OFFICE TO MAKE AN APPOINTMENT. -FOLLOW UP WITH DR. NATH IN THE OFFICE WITHIN ON 12/05/17 ALREADY SCHEDULED. -FOLLOW UP WITH DR. GILES (VASCULAR SURGEON) IN THE OFFICE WITHIN 7-10 DAYS- --CALL THE OFFICE TO MAKE AN APPOINTMENT. -CONTINUE YOUR HOME MEDICATIONS USUAL. REFILLS HAVE BEEN SENT TO YOUR PHARMACY. -NEW MEDICATIONS SENT TO YOUR PHARMACY INCLUDE: 1) MEDROL DOSE PACK--THIS IS THE STEROIDS FOR YOUR BREATHING---TAKE EXACTLY DIRECTED. 2) SPIRONOLACTONE 25 MG ---THIS IS FOR YOUR HEART---TAKE ONE TABLET BY MOUTH ONCE A DAY. 3) BUDESONIDE ---THIS IS A BREATHING TREATMENT---USE EVERY 12 HOURS (MORNING AND EVENING). 4) AMIODARONE 200 MG ---THIS IS FOR YOUR HEART (PLEASE NOTE, DO NOT TAKE YOUR HOME DOSE OF 100 MG; DR. NATH INCREASED YOUR DOSE, SO TAKE THE NEW PRESCRIPTION MEDICATION)---TAKE ONE TABLET BY MOUTH ONCE A DAY. -IF YOU HAVE ANY FURTHER QUESTIONS OR CONCERNS, CONTACT DR. BRINK. Objective - Vital Signs/Intake and Output Vital Signs (last 24 hours): Temp Pulse Resp BP Pulse Ox 97.9 F 82 20 120/78 97 11/28/17 07:00 11/28/17 08:50 11/28/17 07:00 11/28/17 09:45 11/28/17 07:00 Intake and Output: 11/28/17 11/28/17 06:59 18:59 Intake Total 460 Balance 460 - Medications Medications: Current Medications Albuterol/Ipratropium (Duoneb 3 Mg/0.5 Mg (3 Ml) Ud) 3 ml INH RQ4 [facility] Last Admin: 11/28/17 15:57 Dose: 3 ml Amiodarone HCl (Cordarone) 200 mg PO DAILY [facility] Last Admin: 11/28/17 09:42 Dose: 200 mg Bisoprolol Fumarate (Zebeta) 5 mg PO DAILY [facility] Last Admin: 11/28/17 09:45 Dose: 5 mg Budesonide (Pulmicort Respules) 0.5 mg INH RQ12 [facility] Last Admin: 11/28/17 07:33 Dose: 0.5 mg Cyclobenzaprine HCl (Flexeril) 5 mg PO HS [facility] Last Admin: 11/27/17 22:21 Dose: Not Given Furosemide (Lasix) 20 mg IVP Q12 [facility] Last Admin: 11/28/17 09:45 Dose: 20 mg Aztreonam 1 gm/ Sodium (Chloride) 100 mls @ 100 mls/hr IVPB Q8H [facility] PRN Reason: Protocol Last Admin: 11/28/17 14:05 Dose: 100 mls/hr Insulin Aspart (Novolog) 0 unit SC ACHS [facility] PRN Reason: Protocol Last Admin: 11/28/17 12:20 Dose: 4 units Insulin Glargine (Lantus) 20 unit SC PCB [facility] Last Admin: 11/28/17 09:41 Dose: 20 units Levothyroxine Sodium (Synthroid) 50 mcg PO DAILY@0630 [facility] Last Admin: 11/28/17 07:16 Dose: 50 mcg Losartan Potassium (Cozaar) 50 mg PO BID [facility] Last Admin: 11/28/17 09:43 Dose: 50 mg Pantoprazole Sodium (Protonix Ec Tab) 40 mg PO DAILY [facility] Last Admin: 11/28/17 09:44 Dose: 40 mg Prednisone (Prednisone Tab) 40 mg PO DAILY [facility] Last Admin: 11/28/17 09:43 Dose: 40 mg Rivaroxaban (Xarelto) 15 mg PO HS [facility] Last Admin: 11/27/17 22:13 Dose: 15 mg Rosuvastatin Calcium (Crestor) 20 mg PO HS [facility] Last Admin: 11/27/17 21:39 Dose: 20 mg Spironolactone (Aldactone) 25 mg PO DAILY [facility] Last Admin: 11/28/17 09:44 Dose: 25 mg - Labs Labs: 11/27/17 18:53 11/27/17 18:38 PT 15.8 SECONDS (9.7-12.2) H 11/21/17 04:43 INR 1.4 11/21/17 04:43 APTT 42 SECONDS (21-34) H 11/21/17 04:43
[2017-11-28 16:07] VITALS: BP 144/87; PULSE 100; TEMP 98.5; O2SAT 95
--- NOTE | 2017-11-28 17:45 | CP.PCM.PN ---
Subjective - Date & Time of Evaluation Date of Evaluation: 11/28/17 Time of Evaluation: 11:45 - Subjective Subjective: patient seen and examined Cough and shortness of breath much improved Patient being discharged Continue rescue inhaler Tapering dose of prednisone Follow-up in the office Objective - Vital Signs/Intake and Output Vital Signs (last 24 hours): Temp Pulse Resp BP Pulse Ox 98.5 F 100 H 20 144/87 95 11/28/17 15:10 11/28/17 15:10 11/28/17 15:10 11/28/17 15:10 11/28/17 15:10 Intake and Output: 11/28/17 11/28/17 06:59 18:59 Intake Total 460 Balance 460 - Labs Labs: 11/27/17 18:53 11/27/17 18:38 PT 15.8 SECONDS (9.7-12.2) H 11/21/17 04:43 INR 1.4 11/21/17 04:43 APTT 42 SECONDS (21-34) H 11/21/17 04:43 Assessment and Plan (1) COPD exacerbation Status: Acute (2) CHF exacerbation Status: Acute (3) Lung nodule < 6cm on CT Status: Acute
== END 2017-11-28 17:43 | disposition home or self-care (01) | DRG 291 ==
LOC: C.ER 04:20 → C.6T 06:17
PROVIDERS: ADMIT Internal Medicine; ATTEND Internal Medicine
PROC: 5A09457 Assistance with Respiratory Ventilation, 24-96 Consecutive Hours, Continuous Positive Airway Pressure (ICD-10-PCS; principal; 2017-11-21)
DX: I13.0 Hypertensive heart and chronic kidney disease with heart failure and stage 1 through stage 4 chronic kidney disease, or unspecified chronic kidney disease (principal); I50.43 Acute on chronic combined systolic (congestive) and diastolic (congestive) heart failure; J18.9 Pneumonia, unspecified organism; J44.1 Chronic obstructive pulmonary disease with (acute) exacerbation; K55.9 Vascular disorder of intestine, unspecified; N18.9 Chronic kidney disease, unspecified; E11.22 Type 2 diabetes mellitus with diabetic chronic kidney disease; E03.9 Hypothyroidism, unspecified; I42.0 Dilated cardiomyopathy; E78.5 Hyperlipidemia, unspecified; E11.65 Type 2 diabetes mellitus with hyperglycemia; I48.0 Paroxysmal atrial fibrillation; K21.9 Gastro-esophageal reflux disease without esophagitis; Z79.01 Long term (current) use of anticoagulants; Z95.0 Presence of cardiac pacemaker; Z87.891 Personal history of nicotine dependence

== ENCOUNTER 2018-01-01 14:34 | Inpatient (IN) | payer MEDICARE, OTHER ==
[2018-01-01 14:34] VITALS: PULSE 87
--- NOTE | 2018-01-01 15:22 | C.PDOC ---
History Of Present Illness 67 years old male presents to ED for complaints of lower abdominal discomfort that began 2 hours ago. Patient reports he had 2 bowel movements with no improvement. Denies constipation or any other physical complaints. Time Seen by Provider: 01/01/18 15:07 Chief Complaint (Nursing): Abdominal Pain History Per: Patient History/Exam Limitations: no limitations Onset/Duration Of Symptoms: Hrs (2) Current Symptoms Are (Timing): Still Present Location Of Pain/Discomfort: LUQ, LLQ Radiation Of Pain To:: None Associated Symptoms: denies: Fever, Chills, Nausea, Vomiting, Diarrhea, Constipation, Urinary Symptoms Exacerbating Factors: None Alleviating Factors: None Last Bowel Movement: Today Recent travel outside of the [place]: No Past Medical History Reviewed: Historical Data, Nursing Documentation, Vital Signs Vital Signs: Last Vital Signs Temp 97.7 F 01/01/18 14:52 Pulse 68 01/01/18 18:56 Resp 19 01/01/18 18:56 BP 100/66 01/01/18 18:56 Pulse Ox 97 01/01/18 18:56 - Medical History PMH: Asthma, Atrial Fibrillation, CHF, COPD, HTN Surgical History: Pacemaker - [employer] Procedures ASSISTANCE WITH RESPIRATORY VENTILATION, 24-96 HRS, CPAP (11/21/17) Family History: States: No Known Family Hx - Social History Hx Alcohol Use: No Hx Substance Use: No - Immunization History Hx Tetanus Toxoid Vaccination: No Hx Influenza Vaccination: No Hx Pneumococcal Vaccination: No Review Of Systems Constitutional: Negative for: Fever, Chills Gastrointestinal: Positive for: Abdominal Pain (Lower abdomen ). Negative for: Nausea, Vomiting, Diarrhea, Constipation Skin: Negative for: Rash Neurological: Negative for: Weakness, Numbness Physical Exam - Physical Exam Appears: Non-toxic, No Acute Distress, Other (Obese, asleep ) Skin: Normal Color, Warm, Dry, No Rash Head: Atraumatic, Normacephalic Eye(s): bilateral: Normal Inspection, PERRL, EOMI Oral Mucosa: Moist Neck: Normal ROM, Supple Chest: Symmetrical, No Tenderness Cardiovascular: Rhythm Regular, No Murmur Respiratory: Normal Breath Sounds, No Decreased Breath Sounds, No Rales, No Rhonchi, No Wheezing Gastrointestinal/Abdominal: Soft, Tenderness (Mild lower abdomen ), No Distention, No Guarding, No Rebound Extremity: Normal ROM, No Deformity Extremity: Bilateral: Atraumatic, Normal Color And Temperature, Normal ROM Pulses: Left Dorsalis Pedis: Normal, Right Dorsalis Pedis: Normal Neurological/Psych: Oriented x3, Normal Speech Gait: Steady ED Course And Treatment - Laboratory Results Result Diagrams: 01/01/18 15:49 01/01/18 15:49 Lab Interpretation: Abnormal (UA small blood and casts, + leukocytosis of ? etiology, ABG wnl, lactate 1.7 normal) O2 Sat by Pulse Oximetry: 100 (RA) Pulse Ox Interpretation: Normal - Radiology CXR: Interpreted by Me CXR Interpretation: Yes: No Acute Disease - Other Rad Abdomen Obstructive Series X-Ray X-Ray: Viewed By Me, Read By Radiologist Interpretation: Date of service: 01/01/2018. PROCEDURE: Radiographs of the chest and abdomen (obstructive series). HISTORY: abd pain. COMPARISON: No prior. TECHNIQUE: AP radiograph of the chest, with upright and supine radiographs of the abdomen. FINDINGS: CHEST: Lungs: Clear. Cardiovascular: Normal size heart. AICD noted. No congestive change. Pleura: No pleural fluid. No pneumothorax. Other findings: None. ABDOMEN AND PELVIS: Bowel: Unremarkable bowel gas pattern. No evidence of mechanical obstruction. Free air : None. Bones: Unremarkable. Other findings: None. IMPRESSION: No evidence of bowel obstruction. No pulmonary infiltrate. - CT Scan/US CT Abdomen/Pelvis Other Rad Studies (CT/US): Read By Radiologist, Radiology Report Reviewed CT/US Interpretation: IMPRESSION: 5 mm ground-glass nodular density, right lower lobe. Correlation with CT of the chest suggested if indicated. Containing bilateral inguinal hernias. Enlarged heterogeneous prostate gland. Recommend correlation with PSA. Thick-walled urinary bladder out of proportion to under distension. Recommend correlation with PSA. Reevaluation Time: 18:31 Reassessment Condition: Improved - Physician Consult Information Outcome Of Conversation: 1729 and 1829 d/w Dr. Monson- PMSally- ok to eval and admit. 1829: d/w Surg Edvin- ok to consult under Dr Mireles for abd pain Medical Decision Making Medical Decision Making: Administered IV fluids and Toradol. Ordered CT abdomen&Pelvis, blood work, Obstructive series X-Rays, and urinalysis. Abd Pain : Again, luekocytosis of ? etiology suspected mesenteric ischemia has been evaled for same last admission thickened bladder of ? significance no AAA or bowel ischemia seen on CT Acute renal insuffiency Creat 3.3 from baseline 1.5 not clinically dry nor very elevated glu ? pre-renal due to CHF meds Start start gentle hydration and follow BUN/Creat Disposition Doctor Will See Patient In The: Hospital Counseled Patient/Family Regarding: Studies Performed, Diagnosis - Disposition Disposition: HOSPITALIZED Disposition Time: 18:37 Condition: GOOD - Clinical Impression Clinical Impression: Abdominal discomfort, Acute renal insufficiency - Scribe Statement The provider has reviewed the documentation as recorded by the Anne Bacon All medical record entries made by the Fadiaibyee were at my direction and personally dictated by me. I have reviewed the chart and agree that the record accurately reflects my personal performance of the history, physical exam, medical decision making, and the department course for this patient. I have also personally directed, reviewed, and agree with the discharge instructions and disposition.
[2018-01-01] MEDS ORDERED: Sodium Chloride 0.9% 1,000 ML IV ONE (15:23)
[2018-01-01 15:53] LABS: BASO # 0.1 K/uL (0.0-0.2); BASO % 0.4 % (0.0-2.0); EOS # 0.6 K/uL (0.0-0.7); EOS % 2.7 % (0.0-4.0); LYMPH # 1.9 K/uL (1.0-4.3); LYMPH % 9.2 % (20.0-40.0); MEAN CORPUSCULAR HEMOGLOBIN 29.9 pg (27.0-31.0); MEAN CORPUSCULAR HGB CONC 34.4 g/dL (33.0-37.0); MEAN PLATELET VOLUME 8.6 fL (7.2-11.7); MONO # 2.1 K/uL (0.0-0.8); MONO % 10.2 % (0.0-10.0); NEUT % 77.5 % (50.0-75.0); NRBC % 0.1 % (0.0-2.0); PLATELET COUNT 290 K/uL (130-400); RBC 5.57 Mil/uL (4.40-5.90); WHITE BLOOD COUNT 20.7 K/uL (4.8-10.8)
[2018-01-01 15:55] LABS: HEMOGLOBIN 16.7 g/dL (12.0-18.0); MEAN CELL VOLUME 86.9 fL (80.0-94.0)
[2018-01-01 16:06] LABS: ALB/GLOB RATIO 1.4 (1.0-2.1); ALBUMIN 4.8 g/dL (3.5-5.0); CALCIUM 9.7 mg/dl (8.6-10.4)
--- NOTE | 2018-01-01 16:45 | RAD ---
Date of service: 01/01/2018 PROCEDURE: Radiographs of the chest and abdomen (obstructive series) HISTORY: abd pain COMPARISON: No prior. TECHNIQUE: AP radiograph of the chest, with upright and supine radiographs of the abdomen. FINDINGS: CHEST: Lungs: Clear. Cardiovascular: Normal size heart. AICD noted. No congestive change. Pleura: No pleural fluid. No pneumothorax. Other findings: None. ABDOMEN AND PELVIS: Bowel: Unremarkable bowel gas pattern. No evidence of mechanical obstruction. Free air: None. Bones: Unremarkable. Other findings: None. IMPRESSION: No evidence of bowel obstruction. No pulmonary infiltrate.
[2018-01-01] MEDS ORDERED: Iohexol 300 100 ML IJ ONE (16:55)
[2018-01-01] MEDS ORDERED: Sodium Chloride 0.9% 1,000 ML ONE (17:17)
[2018-01-01] MEDS ORDERED: Ciprofloxacin 400mg/200ml D5W 400 MG/200 ML BAG IVPB STA (17:32)
[2018-01-01 17:46] LABS: BANDS 2 % (0-2); EOSINOPHIL 2 % (0-4); LYMPHOCYTE 10 % (20-40); MICROCYTOSIS SLIGHT; MONOCYTE 10 % (0-10); NEUTROPHIL 76 % (50-75); PLATELET ESTIMATE NORMAL (NORMAL); TOTAL CELLS COUNTED 100
[2018-01-01 17:47] LABS: HYPOCHROMIC SLIGHT; ROULEAUX FORMATION SLIGHT
[2018-01-01 17:52] LABS: SQUAMOUS EPITHIAL 1 /hpf (0-5); URINE BACTERIA RARE (<OCC); URINE BILIRUBIN NEGATIVE (NEGATIVE); URINE BLOOD 1+ (NEGATIVE); URINE CLARITY Hazy (Clear); URINE COLOR Yellow (YELLOW); URINE GLUCOSE (UA) NORMAL (Normal); URINE HYALINE CAST >20 /lpf (0-2); URINE LEUKOCYTE ESTERASE NEG Leu/uL (Negative); URINE PROTEIN 1+ mg/dL (NEGATIVE); URINE UROBILINOGEN NORMAL mg/dL (0.2-1.0)
--- NOTE | 2018-01-01 18:13 | CT ---
PROCEDURE: CT Abdomen and Pelvis without Oral or IV contrast. HISTORY: lower abd/ hypotense, ? AAA COMPARISON: CTA abdomen pelvis performed 11/27/17 TECHNIQUE: Contiguous axial images of the abdomen and pelvis. No oral or IV contrast administered. Coronal and Sagittal reformats generated and reviewed. Radiation dose: Total exam DLP = 514.14 mGy-cm. This CT exam was performed using one or more of the following dose reduction techniques: Automated exposure control, adjustment of the mA and/or kV according to patient size, and/or use of iterative reconstruction technique. FINDINGS: There is limited evaluation of the solid organs without the administration of IV contrast. LOWER THORAX: No visible consolidation, pleural effusion, or pneumothorax. 5 mm ground-glass nodular density (series 5, image 6). LIVER: Unremarkable unenhanced appearance. GALLBLADDER AND BILE DUCTS: Unremarkable unenhanced appearance. PANCREAS: Unremarkable unenhanced appearance. SPLEEN: Unremarkable unenhanced appearance. ADRENALS: Unremarkable unenhanced appearance. KIDNEYS AND URETERS: No hydronephrosis or obstructing renal calculus. BLADDER: Thick-walled under distended urinary bladder. REPRODUCTIVE: Enlarged heterogeneous prostate gland containing calcifications. APPENDIX: The appendix appears within normal limits of caliber. No secondary signs of acute appendicitis. BOWEL: The stomach is nondistended. Lack of oral contrast limits evaluation for bowel pathology. The bowel loops appear within normal limits of caliber without evidence of intestinal obstruction. Diverticulosis without CT evidence acute diverticulitis. PERITONEUM: No significant free fluid. No definite free air. LYMPH NODES: No bulky lymphadenopathy identified. VASCULATURE: Atherosclerotic calcifications of the aorta and branches. No aortic aneurysm. BONES: Degenerative changes. OTHER FINDINGS: None. IMPRESSION: 5 mm ground-glass nodular density, right lower lobe. Correlation with CT of the chest suggested if indicated. Containing bilateral inguinal hernias. Enlarged heterogeneous prostate gland. Recommend correlation with PSA. Thick-walled urinary bladder out of proportion to under distension. Recommend correlation with PSA.
[2018-01-01] MEDS ORDERED: Sodium Chloride 0.9% 1,000 ML IV STA (18:41)
[2018-01-01] MEDS ORDERED: Ciprofloxacin 400mg/200ml D5W 400 MG/200 ML BAG IVPB ONE (18:46)
[2018-01-01 18:59] LABS: VENOUS BLOOD GAS BASE EXCESS 4.7 mmol/L (0.0-2.0); VENOUS BLOOD GAS PCO2 42 mmHg (40-60); VENOUS BLOOD GAS PO2 47 mm/Hg (30-55); VENOUS BLOOD PH 7.45 (7.32-7.43)
[2018-01-01 20:05] VITALS: RESP 20
[2018-01-01] MEDS ORDERED: Albuterol-Ipratrop 3 mg / 0.5 (3 ml) UD INH PRN (21:45)
[2018-01-01] MEDS ORDERED: Home Med 1 UNIT (Tizanidine [Zanaflex] 2 MG) PO SCH (22:00)
[2018-01-01] MEDS: (Novolog) Insulin Aspart, Recombinant 100 u/ml 10 ml vial SC SCH (22:36)
[2018-01-01] MEDS: Sodium Chloride 0.9% 1,000 ML IV SCH (22:36)
[2018-01-01] MEDS: Pantoprazole 40 mg EC Tab PO SCH (22:36)
--- NOTE | 2018-01-01 22:49 | CP.PCM.CON ---
History of Present Illness - History of Present Illness History of Present Illness: General surgery consult note for Dr. Myra Morris, PGY-2 Pt S & E at bedside at 2200 67M w/PMH sig for asthma, afib, CHF, COPD, HTN consulted for suprapubic abdominal pain x 2 days. Pain is intermittent, non radiating, moderate-severe. No inciting, aggravating or alleviating factors identified. Admits to flatus. Denies N & V, F & C, constipation or diarrhea, changes in urinary habits, wt changes, cough, cold, URI, headache, dizziness, vision changes, CP, SOB, numbness/tingling. On admission - Leukocytosis of 20.7. Ab x-ray no evidence of bowel obstruction. CT ab w/B/L inguinal hernias. Afebrile PMH: Asthma, Afib on Eliquis, CHF, COPD, HTN, DM PSH: Pacemaker All: PCN SH: Denies tobacco, ETOH or illicit drug use FH: Non contributory PMD: Ermias Review of Systems - Review of Systems All systems: reviewed and no additional remarkable complaints except - Constitutional Constitutional: absent: Chills, Fever - EENT Eyes: absent: Change in Vision Nose/Mouth/Throat: absent: Sore Throat - Cardiovascular Cardiovascular: absent: Chest Pain - Respiratory Respiratory: absent: Cough - Gastrointestinal Gastrointestinal: Abdominal Pain. absent: Bloating, Change in Bowel Habits, Constipation, Diarrhea, Hematemesis, Hematochezia, Nausea, Vomiting - Genitourinary Genitourinary: absent: Difficulty Urinating, Dysuria, Hematuria - Musculoskeletal Musculoskeletal: absent: Back Pain, Numbness, Tingling - Integumentary Integumentary: absent: Rash - Neurological Neurological: absent: Weakness - Psychiatric Psychiatric: absent: Change in Appetite Past Patient History - Infectious Disease Hx of Infectious Diseases: None - Past Medical History & Family History Past Medical History?: Yes - Past Social History Smoking Status: Former Smoker - CARDIAC Hx Cardiac Disorders: Yes Hx Atrial Fibrillation: Yes Hx Congestive Heart Failure: Yes Hx Hypertension: Yes Hx Pacemaker: Yes (15 yrs ago) - PULMONARY Hx Respiratory Disorders: Yes Hx Asthma: Yes Hx Chronic Obstructive Pulmonary Disease (COPD): Yes - NEUROLOGICAL Hx Neurological Disorder: No - HEENT Hx HEENT Problems: No - RENAL Hx Chronic Kidney Disease: No - ENDOCRINE/METABOLIC Hx Endocrine Disorders: Yes Hx Diabetes Mellitus Type 1: Yes - HEMATOLOGICAL/ONCOLOGICAL Hx Blood Disorders: No - INTEGUMENTARY Hx Dermatological Problems: No - MUSCULOSKELETAL/RHEUMATOLOGICAL Hx Musculoskeletal Disorders: No Hx Falls: No - GASTROINTESTINAL Hx Gastrointestinal Disorders: No - GENITOURINARY/GYNECOLOGICAL Hx Genitourinary Disorders: No - PSYCHIATRIC Hx Psychophysiologic Disorder: No Hx Substance Use: No - SURGICAL HISTORY Hx Surgeries: Yes Other/Comment: Pacemaker insertion 15 yrs ago - ANESTHESIA Hx Anesthesia: Yes Hx Anesthesia Reactions: No Hx Malignant Hyperthermia: No Has any member of the family had a problem w/ anesthesia?: No Meds Allergies/Adverse Reactions: Allergies Allergy/AdvReac Type Severity Reaction Status Date / Time Penicillins Allergy Verified 01/01/18 14:51 - Medications Medications: Current Medications Albuterol/Ipratropium (Duoneb 3 Mg/0.5 Mg (3 Ml) Ud) 3 ml INH RQ4 PRN PRN Reason: Shortness of Breath Amiodarone HCl (Cordarone) 200 mg PO DAILY [facility] Bisoprolol Fumarate (Zebeta) 5 mg PO DAILY [facility] Budesonide (Pulmicort Respules) 0.5 mg INH RQ12 [facility] Home Med (Eplerenone [Eplerenone]) 25 mg PO DAILY [facility] Home Med (Tizanidine [Zanaflex]) 2 mg PO HS [facility] Sodium Chloride (Sodium Chloride 0.9%) 1,000 mls @ 75 mls/hr IV .[id number] [facility] Last Admin: 01/01/18 22:36 Dose: 75 mls/hr Insulin Aspart (Novolog) 0 unit SC ACHS [facility] PRN Reason: Protocol Last Admin: 01/01/18 22:36 Dose: Not Given Levothyroxine Sodium (Synthroid) 50 mcg PO DAILY@0630 [facility] Pantoprazole Sodium (Protonix Ec Tab) 40 mg PO HS [facility] Last Admin: 01/01/18 22:36 Dose: 40 mg Rivaroxaban (Xarelto) 15 mg PO HS [facility] Last Admin: 01/01/18 22:36 Dose: 15 mg Rosuvastatin Calcium (Crestor) 20 mg PO HS [facility] Last Admin: 01/01/18 22:36 Dose: 20 mg Spironolactone (Aldactone) 25 mg PO DAILY [facility] Torsemide (Demadex) 20 mg PO BID [facility] Last Admin: 01/01/18 22:36 Dose: 20 mg Physical Exam - Constitutional Appears: Non-toxic, No Acute Distress - Head Exam Head Exam: ATRAUMATIC, NORMAL INSPECTION, NORMOCEPHALIC - Eye Exam Eye Exam: EOMI, Normal appearance - ENT Exam ENT Exam: Mucous Membranes Moist, Normal Exam - Neck Exam Neck exam: Positive for: Full Rom, Normal Inspection - Respiratory Exam Respiratory Exam: Clear to Auscultation Bilateral, NORMAL BREATHING PATTERN - Cardiovascular Exam Cardiovascular Exam: REGULAR RHYTHM, +S1, +S2 - GI/Abdominal Exam GI & Abdominal Exam: Soft. absent: Distended (obese), Firm, Guarding, Tenderness Additional comments: Pt refused to allow me to visualize abdominal skin or inguinal area - Extremities Exam Additional comments: refused exam - Neurological Exam Neurological exam: Alert, CN II-XII Intact, Oriented x3 - Psychiatric Exam Psychiatric exam: Normal Affect, Normal Mood - Skin Additional comments: refused abdominal skin exam Results - Vital Signs Recent Vital Signs: Last Vital Signs Temp 97.9 F 01/01/18 20:04 Pulse 72 01/01/18 20:04 Resp 20 01/01/18 20:04 BP 104/68 01/01/18 20:04 Pulse Ox 96 01/01/18 20:04 - Labs Result Diagrams: 01/01/18 15:49 01/01/18 15:49 Labs: Laboratory Results - last 24 hr 01/01/18 01/01/18 01/01/18 15:22 15:49 15:49 WBC 20.7 H RBC 5.57 Hgb 16.7 D Hct 48.4 MCV 86.9 D MCH 29.9 MCHC 34.4 RDW 14.0 Plt Count 290 MPV 8.6 Neut % (Auto) 77.5 H Lymph % (Auto) 9.2 L [place] % (Auto) 10.2 H Eos % (Auto) 2.7 Baso % (Auto) 0.4 Neut # (Auto) 16.0 H Lymph # (Auto) 1.9 [place] # (Auto) 2.1 H Eos # (Auto) 0.6 Baso # (Auto) 0.1 Neutrophils % (Manual) 76 H Band Neutrophils % 2 Lymphocytes % (Manual) 10 L Monocytes % (Manual) 10 Eosinophils % (Manual) 2 Platelet Estimate Normal Hypochromasia (manual) Slight Microcytosis (manual) Slight Rouleaux Slight pO2 VBG pH VBG pCO2 VBG HCO3 VBG Total CO2 VBG O2 Sat (Calc) VBG Base Excess VBG Potassium Glucose Lactate Sodium 136 Potassium 4.1 Chloride 87 L Carbon Dioxide 33 H Anion Gap 20 BUN 43 H Creatinine 3.3 H Est GFR ( Amer) 23 Est GFR (Non-Af Amer) 19 POC Glucose (mg/dL) Random Glucose 158 H Calcium 9.7 Total Bilirubin 0.7 AST 29 ALT 32 Alkaline Phosphatase 112 Total Protein 8.2 Albumin 4.8 Globulin 3.4 Albumin/Globulin Ratio 1.4 Lipase 102 Venous Blood Potassium Urine Color Yellow Urine Clarity Hazy Urine pH 5.0 Ur Specific [place] 1.013 Urine Protein 1+ H Urine Glucose (UA) Normal Urine Ketones Negative Urine Blood 1+ H Urine Nitrate Negative Urine Bilirubin Negative Urine Urobilinogen Normal Ur Leukocyte Esterase Neg Urine WBC (Auto) 7 H Urine RBC (Auto) 23 H Ur Squamous Epith Cells 1 Urine Bacteria Rare Hyaline Casts >20 H 01/01/18 01/01/18 18:55 21:17 WBC RBC Hgb Hct MCV MCH MCHC RDW Plt Count MPV Neut % (Auto) Lymph % (Auto) [place] % (Auto) Eos % (Auto) Baso % (Auto) Neut # (Auto) Lymph # (Auto) [place] # (Auto) Eos # (Auto) Baso # (Auto) Neutrophils % (Manual) Band Neutrophils % Lymphocytes % (Manual) Monocytes % (Manual) Eosinophils % (Manual) Platelet Estimate Hypochromasia (manual) Microcytosis (manual) Rouleaux pO2 47 VBG pH 7.45 H VBG pCO2 42 VBG HCO3 28.2 VBG Total CO2 30.5 H VBG O2 Sat (Calc) 89.1 H VBG Base Excess 4.7 H VBG Potassium 3.2 L Glucose 169 H Lactate 1.7 Sodium 130.0 L Potassium Chloride 92.0 L Carbon Dioxide Anion Gap BUN Creatinine Est GFR ( Amer) Est GFR (Non-Af Amer) POC Glucose (mg/dL) 205 H Random Glucose Calcium Total Bilirubin AST ALT Alkaline Phosphatase Total Protein Albumin Globulin Albumin/Globulin Ratio Lipase Venous Blood Potassium 3.2 L Urine Color Urine Clarity Urine pH Ur Specific [place] Urine Protein Urine Glucose (UA) Urine Ketones Urine Blood Urine Nitrate Urine Bilirubin Urine Urobilinogen Ur Leukocyte Esterase Urine WBC (Auto) Urine RBC (Auto) Ur Squamous Epith Cells Urine Bacteria Hyaline Casts Assessment & Plan - Assessment and Plan (Free Text) Assessment: 67M w/ab pain -resolved Plan: Pain control Monitor bowel function Further recs pending attending evaluation DULCE Morris, PGY-2 - Date & Time Date: 01/01/18 Time: 22:00
[2018-01-02] MEDS: Levothyroxine 50 MCG TAB PO SCH (05:36)
[2018-01-02] MEDS ORDERED: Budesonide 0.5 mg/2 ml Inhal Susp UD INH SCH (08:00)
[2018-01-02] MEDS: (Novolog) Insulin Aspart, Recombinant 100 u/ml 10 ml vial SC SCH ×4 (08:09→22:51)
[2018-01-02] MEDS ORDERED: (Lantus) Insulin Glargine, Recombinant SC SCH (09:42)
[2018-01-02] MEDS ORDERED: EPLERENONE 25 MG PO SCH (10:00)
[2018-01-02] MEDS: (Lantus) Insulin Glargine, Recombinant SC SCH ×2 (10:33→13:23)
[2018-01-02] MEDS: Sodium Chloride 0.9% 1,000 ML IV SCH (11:23)
[2018-01-02 12:07] LABS: HEMOGLOBIN 15.5 g/dL (12.0-18.0); MEAN CELL VOLUME 86.6 fL (80.0-94.0); MEAN CORPUSCULAR HEMOGLOBIN 30.5 pg (27.0-31.0); MEAN CORPUSCULAR HGB CONC 35.2 g/dL (33.0-37.0); RBC 5.08 Mil/uL (4.40-5.90); RED CELL DISTRIBUTION WIDTH 14.1 % (11.5-14.5); WHITE BLOOD COUNT 15.2 K/uL (4.8-10.8)
[2018-01-02 12:39] LABS: ALB/GLOB RATIO 1.4 (1.0-2.1); ALBUMIN 4.2 g/dL (3.5-5.0); CALCIUM 9.1 mg/dl (8.6-10.4)
[2018-01-02 14:25] LABS: SQUAMOUS EPITHIAL < 1 /hpf (0-5); URINE BILIRUBIN NEGATIVE (NEGATIVE); URINE BLOOD NEGATIVE (NEGATIVE); URINE CLARITY Clear (Clear); URINE COLOR Yellow (YELLOW); URINE GLUCOSE (UA) NORMAL (Normal); URINE LEUKOCYTE ESTERASE NEG Leu/uL (Negative); URINE PROTEIN NEGATIVE (NEGATIVE); URINE UROBILINOGEN NORMAL mg/dL (0.2-1.0)
--- NOTE | 2018-01-02 16:40 | CP.PCM.PN ---
Subjective - Date & Time of Evaluation Date of Evaluation: 01/02/18 Time of Evaluation: 06:45 - Subjective Subjective: Patient seen. Refusing to be examined. Refusing to answer questions. Objective - Vital Signs/Intake and Output Vital Signs (last 24 hours): Temp Pulse Resp BP Pulse Ox 97.7 F 79 20 114/74 96 01/02/18 16:00 01/02/18 16:00 01/02/18 16:00 01/02/18 16:00 01/02/18 16:00 Intake and Output: 01/02/18 01/02/18 06:59 18:59 Intake Total 600 600 Output Total 750 Balance -150 600 - Medications Medications: Current Medications Albuterol/Ipratropium (Duoneb 3 Mg/0.5 Mg (3 Ml) Ud) 3 ml INH RQ4 PRN PRN Reason: Shortness of Breath Amiodarone HCl (Cordarone) 200 mg PO DAILY [facility] Last Admin: 01/02/18 13:23 Dose: 200 mg Bisoprolol Fumarate (Zebeta) 5 mg PO DAILY [facility] Last Admin: 01/02/18 13:22 Dose: 5 mg Budesonide (Pulmicort Respules) 0.5 mg INH RQ12 [facility] Last Admin: 01/02/18 08:21 Dose: 0.5 mg Home Med (Eplerenone [Eplerenone]) 25 mg PO DAILY [facility] Home Med (Tizanidine [Zanaflex]) 2 mg PO HS [facility] Sodium Chloride (Sodium Chloride 0.9%) 1,000 mls @ 75 mls/hr IV .[id number] [facility] Last Admin: 01/02/18 11:23 Dose: 75 mls/hr Insulin Aspart (Novolog) 0 unit SC ACHS [facility] PRN Reason: Protocol Last Admin: 01/02/18 11:35 Dose: Not Given Insulin Glargine (Lantus) 20 unit SC QAM@0800 [facility] Last Admin: 01/02/18 13:23 Dose: 20 unit Levothyroxine Sodium (Synthroid) 50 mcg PO DAILY@0630 [facility] Last Admin: 01/02/18 05:36 Dose: 50 mcg Pantoprazole Sodium (Protonix Ec Tab) 40 mg PO [facility] Last Admin: 01/01/18 22:36 Dose: 40 mg Rivaroxaban (Xarelto) 15 mg PO [facility] Last Admin: 01/01/18 22:36 Dose: 15 mg Rosuvastatin Calcium (Crestor) 20 mg PO HS [facility] Last Admin: 01/01/18 22:36 Dose: 20 mg Spironolactone (Aldactone) 25 mg PO DAILY [facility] Last Admin: 01/02/18 13:23 Dose: 25 mg Torsemide (Demadex) 20 mg PO BID [facility] Last Admin: 01/02/18 13:22 Dose: 20 mg - Labs Labs: 01/02/18 11:35 01/02/18 11:35
--- NOTE | 2018-01-02 17:31 | CP.PCM.CON ---
History of Present Illness - History of Present Illness History of Present Illness: patient states that he does not have any lung issues at this point And does not want any pulmonary workup Past Patient History - Infectious Disease Hx of Infectious Diseases: None - Past Medical History & Family History Past Medical History?: Yes - Past Social History Smoking Status: Former Smoker - CARDIAC Hx Cardiac Disorders: Yes Hx Atrial Fibrillation: Yes Hx Congestive Heart Failure: Yes Hx Hypertension: Yes Hx Pacemaker: Yes (15 yrs ago) - PULMONARY Hx Respiratory Disorders: Yes Hx Asthma: Yes Hx Chronic Obstructive Pulmonary Disease (COPD): Yes - NEUROLOGICAL Hx Neurological Disorder: No - HEENT Hx HEENT Problems: No - RENAL Hx Chronic Kidney Disease: No - ENDOCRINE/METABOLIC Hx Endocrine Disorders: Yes Hx Diabetes Mellitus Type 1: Yes - HEMATOLOGICAL/ONCOLOGICAL Hx Blood Disorders: No - INTEGUMENTARY Hx Dermatological Problems: No - MUSCULOSKELETAL/RHEUMATOLOGICAL Hx Musculoskeletal Disorders: No Hx Falls: No - GASTROINTESTINAL Hx Gastrointestinal Disorders: No - GENITOURINARY/GYNECOLOGICAL Hx Genitourinary Disorders: No - PSYCHIATRIC Hx Psychophysiologic Disorder: No Hx Substance Use: No - SURGICAL HISTORY Hx Surgeries: Yes Other/Comment: Pacemaker insertion 15 yrs ago - ANESTHESIA Hx Anesthesia: Yes Hx Anesthesia Reactions: No Hx Malignant Hyperthermia: No Has any member of the family had a problem w/ anesthesia?: No Meds Allergies/Adverse Reactions: Allergies Allergy/AdvReac Type Severity Reaction Status Date / Time Penicillins Allergy Verified 01/01/18 14:51 - Medications Medications: Current Medications Albuterol/Ipratropium (Duoneb 3 Mg/0.5 Mg (3 Ml) Ud) 3 ml INH RQ4 PRN PRN Reason: Shortness of Breath Amiodarone HCl (Cordarone) 200 mg PO DAILY [facility] Last Admin: 01/02/18 13:23 Dose: 200 mg Bisoprolol Fumarate (Zebeta) 5 mg PO DAILY [facility] Last Admin: 01/02/18 13:22 Dose: 5 mg Budesonide (Pulmicort Respules) 0.5 mg INH RQ12 [facility] Last Admin: 01/02/18 08:21 Dose: 0.5 mg Home Med (Eplerenone [Eplerenone]) 25 mg PO DAILY [facility] Home Med (Tizanidine [Zanaflex]) 2 mg PO [facility] Sodium Chloride (Sodium Chloride 0.9%) 1,000 mls @ 75 mls/hr IV .[id number] [facility] Last Admin: 01/02/18 11:23 Dose: 75 mls/hr Insulin Aspart (Novolog) 0 unit SC [facility] PRN Reason: Protocol Last Admin: 01/02/18 11:35 Dose: Not Given Insulin Glargine (Lantus) 20 unit SC QAM@0800 [facility] Last Admin: 01/02/18 13:23 Dose: 20 unit Levothyroxine Sodium (Synthroid) 50 mcg PO DAILY@0630 [facility] Last Admin: 01/02/18 05:36 Dose: 50 mcg Pantoprazole Sodium (Protonix Ec Tab) 40 mg PO [facility] Last Admin: 01/01/18 22:36 Dose: 40 mg Rivaroxaban (Xarelto) 15 mg PO [facility] Last Admin: 01/01/18 22:36 Dose: 15 mg Rosuvastatin Calcium (Crestor) 20 mg PO [facility] Last Admin: 01/01/18 22:36 Dose: 20 mg Spironolactone (Aldactone) 25 mg PO DAILY [facility] Last Admin: 01/02/18 13:23 Dose: 25 mg Torsemide (Demadex) 20 mg PO BID [facility] Last Admin: 01/02/18 13:22 Dose: 20 mg Results - Vital Signs Recent Vital Signs: Last Vital Signs Temp 97.7 F 01/02/18 16:00 Pulse 79 01/02/18 16:00 Resp 20 01/02/18 16:00 BP 114/74 01/02/18 16:00 Pulse Ox 96 01/02/18 16:00 - Labs Result Diagrams: 01/02/18 11:35 01/02/18 11:35 Labs: Laboratory Results - last 24 hr 01/01/18 01/01/18 01/01/18 15:22 15:49 18:55 WBC RBC Hgb Hct MCV MCH MCHC RDW Plt Count MPV Neutrophils % (Manual) 76 H Band Neutrophils % 2 Lymphocytes % (Manual) 10 L Monocytes % (Manual) 10 Eosinophils % (Manual) 2 Platelet Estimate Normal Hypochromasia (manual) Slight Microcytosis (manual) Slight [place]leaux Slight pO2 47 VBG pH 7.45 H VBG pCO2 42 VBG HCO3 28.2 VBG Total CO2 30.5 H VBG O2 Sat (Calc) 89.1 H VBG Base Excess 4.7 H VBG Potassium 3.2 L Sodium 130.0 L Chloride 92.0 L Glucose 169 H Lactate 1.7 Potassium Carbon Dioxide Anion Gap BUN Creatinine Est GFR ( Amer) Est GFR (Non-Af Amer) POC Glucose (mg/dL) Random Glucose Calcium Total Bilirubin AST ALT Alkaline Phosphatase Total Protein Albumin Globulin Albumin/Globulin Ratio Venous Blood Potassium 3.2 L Urine Color Yellow Urine Clarity Hazy Urine pH 5.0 Ur Specific [place] 1.013 Urine Protein 1+ H Urine Glucose (UA) Normal Urine Ketones Negative Urine Blood 1+ H Urine Nitrate Negative Urine Bilirubin Negative Urine Urobilinogen Normal Ur Leukocyte Esterase Neg Urine WBC (Auto) 7 H Urine RBC (Auto) 23 H Ur Squamous Epith Cells 1 Urine Bacteria Rare Hyaline Casts >20 H 01/01/18 01/02/18 01/02/18 21:17 06:46 11:26 WBC RBC Hgb Hct MCV MCH MCHC RDW Plt Count MPV Neutrophils % (Manual) Band Neutrophils % Lymphocytes % (Manual) Monocytes % (Manual) Eosinophils % (Manual) Platelet Estimate Hypochromasia (manual) Microcytosis (manual) Rouleaux pO2 VBG pH VBG pCO2 VBG HCO3 VBG Total CO2 VBG O2 Sat (Calc) VBG Base Excess VBG Potassium Sodium Chloride Glucose Lactate Potassium Carbon Dioxide Anion Gap BUN Creatinine Est GFR ( Amer) Est GFR (Non-Af Amer) POC Glucose (mg/dL) 205 H 147 H 121 H Random Glucose Calcium Total Bilirubin AST ALT Alkaline Phosphatase Total Protein Albumin Globulin Albumin/Globulin Ratio Venous Blood Potassium Urine Color Urine Clarity Urine pH Ur Specific [place] Urine Protein Urine Glucose (UA) Urine Ketones Urine Blood Urine Nitrate Urine Bilirubin Urine Urobilinogen Ur Leukocyte Esterase Urine WBC (Auto) Urine RBC (Auto) Ur Squamous Epith Cells Urine Bacteria Hyaline Casts 01/02/18 01/02/18 01/02/18 11:35 11:35 14:12 WBC 15.2 H RBC 5.08 Hgb 15.5 Hct 44.0 MCV 86.6 MCH 30.5 MCHC 35.2 RDW 14.1 Plt Count 256 MPV 9.0 Neutrophils % (Manual) Band Neutrophils % Lymphocytes % (Manual) Monocytes % (Manual) Eosinophils % (Manual) Platelet Estimate Hypochromasia (manual) Microcytosis (manual) Rouleaux pO2 VBG pH VBG pCO2 VBG HCO3 VBG Total CO2 VBG O2 Sat (Calc) VBG Base Excess VBG Potassium Sodium 134 Chloride 93 L Glucose Lactate Potassium 3.2 L Carbon Dioxide 30 Anion Gap 15 BUN 44 H Creatinine 2.7 H Est GFR ( Amer) 28 Est GFR (Non-Af Amer) 24 POC Glucose (mg/dL) Random Glucose 122 H Calcium 9.1 Total Bilirubin 0.7 AST 26 ALT 27 Alkaline Phosphatase 108 Total Protein 7.2 Albumin 4.2 Globulin 3.0 Albumin/Globulin Ratio 1.4 Venous Blood Potassium Urine Color Yellow Urine Clarity Clear Urine pH 5.0 Ur Specific [place] 1.013 Urine Protein Negative Urine Glucose (UA) Normal Urine Ketones Negative Urine Blood Negative Urine Nitrate Negative Urine Bilirubin Negative Urine Urobilinogen Normal Ur Leukocyte Esterase Neg Urine WBC (Auto) 1 Urine RBC (Auto) < 1 Ur Squamous Epith Cells < 1 Urine Bacteria Hyaline Casts 01/02/18 16:59 WBC RBC Hgb Hct MCV MCH MCHC RDW Plt Count MPV Neutrophils % (Manual) Band Neutrophils % Lymphocytes % (Manual) Monocytes % (Manual) Eosinophils % (Manual) Platelet Estimate Hypochromasia (manual) Microcytosis (manual) [place] pO2 VBG pH VBG pCO2 VBG HCO3 VBG Total CO2 VBG O2 Sat (Calc) VBG Base Excess VBG Potassium Sodium Chloride Glucose Lactate Potassium Carbon Dioxide Anion Gap BUN Creatinine Est GFR ( Amer) Est GFR (Non-Af Amer) POC Glucose (mg/dL) 152 H Random Glucose Calcium Total Bilirubin AST ALT Alkaline Phosphatase Total Protein Albumin Globulin Albumin/Globulin Ratio Venous Blood Potassium Urine Color Urine Clarity Urine pH Ur Specific [place] Urine Protein Urine Glucose (UA) Urine Ketones Urine Blood Urine Nitrate Urine Bilirubin Urine Urobilinogen Ur Leukocyte Esterase Urine WBC (Auto) Urine RBC (Auto) Ur Squamous Epith Cells Urine Bacteria Hyaline Casts
[2018-01-02] MEDS: Pantoprazole 40 mg EC Tab PO SCH (21:08)
[2018-01-03] MEDS: Sodium Chloride 0.9% 1,000 ML IV SCH (00:39)
--- NOTE | 2018-01-03 03:50 | HP ---
HISTORY OF PRESENT ILLNESS: This is a 67 years old male with history of multiple medical problems including hypertension, type 2 diabetes mellitus, chronic kidney disease, status post pacemaker placement, dilated cardiomyopathy, presented to my office on the day of admission with lower abdominal pain. Pain was so severe to the extent that the patient started to become diaphoretic and not able to tolerate it. EMS was called and the patient was brought to emergency room at [facility], where he was admitted. Abdomen and pelvic CAT scan was done in emergency room that showed no significant abnormality or acute pathology. The patient was started on diet and he tolerated. The patient denied having nausea, vomiting or diarrhea. The patient denied to have similar pain before. Other review of system is negative. ALLERGIES: POSITIVE FOR PENICILLIN. PAST MEDICAL HISTORY: As above. SOCIAL HISTORY: Positive for ex-smoking. No EtOH or substance abuse. FAMILY HISTORY: Not contributory. MEDICATIONS: Reviewed and ordered as per MAR. PHYSICAL EXAMINATION: GENERAL: The patient is in bed, not in any cardiopulmonary distress. VITAL SIGNS: Blood pressure 114/74, temperature 97.7, respiratory rate 20 and pulse 79. HEENT: Pupils equal, reactive to light. Normal-appearing mucosa of the conjunctivae, oropharynx and nasal membrane mucosa. NECK: Supple. No JVD. No carotid bruit. No lymph node. No thyromegaly. CHEST AND LUNGS: Bilateral symmetrical expansion. Good air exchange. No rales, no rhonchi. CARDIOVASCULAR SYSTEM: PMI not localized. S1, S2. No additional sounds. ABDOMEN: Normoactive bowel sounds. No tenderness. No organomegaly. No masses. EXTREMITIES: No cyanosis, no clubbing, no edema. [employer] INTERN: Alert, awake, oriented x3. No neurological deficit could be appreciated. ASSESSMENT: 1. Abdominal pain that was relieved spontaneously with no significant findings in the CAT scan, likely secondary to a colonic spasm. 2. Chronic kidney disease. 3. Hypertension. 4. Type 2 diabetes mellitus. 5. Dilated cardiomyopathy. 6. History of pulmonary nodules and lung mass. PLAN: Pulmonary consult and surgical consult. IV fluids. Advance diet as tolerated. Follow surgical consultation recommendations. Carlos Monson MD [facility] # [id number]
[2018-01-03] MEDS: Levothyroxine 50 MCG TAB PO SCH (05:56)
[2018-01-03 07:47] VITALS: BP 118/72; PULSE 82; TEMP 97.5; O2SAT 100
[2018-01-03] MEDS: (Lantus) Insulin Glargine, Recombinant SC SCH (08:30)
[2018-01-03] MEDS: (Novolog) Insulin Aspart, Recombinant 100 u/ml 10 ml vial SC SCH ×2 (08:30→12:22)
[2018-01-03] MEDS ORDERED: Potassium Chloride 20 mEq ER Tab PO ONE (12:45)
[2018-01-03] MEDS ORDERED: Potassium Chloride 20 mEq/15 ml LIQ UD PO ONE (13:15)
--- NOTE | 2018-01-03 13:16 | CP.PCM.PN ---
Subjective - Date & Time of Evaluation Date of Evaluation: 01/03/18 Time of Evaluation: 11:00 - Subjective Subjective: patient seen today, denies any chest fulton, sob, abdominal pain N/V/D , wants to go home oob ambulating the hallway vss and labs - reviewed patient refused repeat lab work today Objective - Vital Signs/Intake and Output Vital Signs (last 24 hours): Temp Pulse Resp BP Pulse Ox 97.5 F L 82 20 118/72 100 01/03/18 07:00 01/03/18 07:00 01/03/18 07:00 01/03/18 07:00 01/03/18 07:00 Intake and Output: 01/03/18 01/03/18 06:59 18:59 Intake Total 630 Balance 630 - Medications Medications: Current Medications Albuterol/Ipratropium (Duoneb 3 Mg/0.5 Mg (3 Ml) Ud) 3 ml INH RQ4 PRN PRN Reason: Shortness of Breath Amiodarone HCl (Cordarone) 200 mg PO DAILY [facility] Last Admin: 01/03/18 09:23 Dose: 200 mg Bisoprolol Fumarate (Zebeta) 5 mg PO DAILY [facility] Last Admin: 01/03/18 09:25 Dose: 5 mg Budesonide (Pulmicort Respules) 0.5 mg INH RQ12 [facility] Last Admin: 01/02/18 08:21 Dose: 0.5 mg Home Med (Eplerenone [Eplerenone]) 25 mg PO DAILY [facility] Home Med (Tizanidine [Zanaflex]) 2 mg PO [facility] Sodium Chloride (Sodium Chloride 0.9%) 1,000 mls @ 75 mls/hr IV .[id number] [facility] Last Admin: 01/03/18 00:39 Dose: Not Given Insulin Aspart (Novolog) 0 unit SC ACHS [facility] PRN Reason: Protocol Last Admin: 01/03/18 12:22 Dose: Not Given Insulin Glargine (Lantus) 20 unit SC QAM@0800 [facility] Last Admin: 01/03/18 08:30 Dose: 20 unit Levothyroxine Sodium (Synthroid) 50 mcg PO DAILY@0630 [facility] Last Admin: 01/03/18 05:56 Dose: Not Given Pantoprazole Sodium (Protonix Ec Tab) 40 mg PO [facility] Last Admin: 01/02/18 21:08 Dose: 40 mg Potassium Chloride (Potassium Chloride Oral Soln) 40 meq PO ONCE ONE Stop: 01/03/18 13:16 Rivaroxaban (Xarelto) 15 mg PO HS [facility] Last Admin: 01/02/18 21:08 Dose: 15 mg Rosuvastatin Calcium (Crestor) 20 mg PO HS [facility] Last Admin: 01/02/18 21:08 Dose: 20 mg Spironolactone (Aldactone) 25 mg PO DAILY [facility] Last Admin: 01/03/18 09:23 Dose: 25 mg Torsemide (Demadex) 20 mg PO BID [facility] Last Admin: 01/03/18 09:23 Dose: 20 mg - Labs Labs: 01/02/18 11:35 01/02/18 11:35 Assessment and Plan - Assessment and Plan (Free Text) Assessment: A/P 67 yr mal ewith pmhx of asthma, afib, CHF, COPD, HTN admitted with abdominal pain and Acute renal insufficiency wbc- trending down - 15.2<20.7 Patient refused repeat labs work today CT - abdomen - The bowel loops appear within normal limits of caliber without evidence of intestinal obstruction. Diverticulosis without CT evidence acute diverticulitis. Dr. Alonzo consulted for abdominal pain, D/w Dr. Finney , no evidence of ischemic bowl from previous CT -angio D/W Dr. Monson cleared for discharge home today and f/u wi th his office in 1 week for PET scan an dfurtehr work up Discharge plan discussed with patient who understands and agrees with plan
== END 2018-01-03 14:00 | disposition home or self-care (01) | DRG 392 ==
LOC: C.ER 14:34 → C.9E 18:28 → C.5S 19:10
PROVIDERS: ADMIT Internal Medicine; ATTEND Internal Medicine
DX: K58.9 Irritable bowel syndrome, unspecified (principal); D72.829 Elevated white blood cell count, unspecified; N28.9 Disorder of kidney and ureter, unspecified; I13.0 Hypertensive heart and chronic kidney disease with heart failure and stage 1 through stage 4 chronic kidney disease, or unspecified chronic kidney disease; I42.0 Dilated cardiomyopathy; E11.22 Type 2 diabetes mellitus with diabetic chronic kidney disease; I48.91 Unspecified atrial fibrillation; I50.9 Heart failure, unspecified; J44.9 Chronic obstructive pulmonary disease, unspecified; K40.20 Bilateral inguinal hernia, without obstruction or gangrene, not specified as recurrent; K57.90 Diverticulosis of intestine, part unspecified, without perforation or abscess without bleeding; N18.9 Chronic kidney disease, unspecified; Z79.4 Long term (current) use of insulin; Z87.891 Personal history of nicotine dependence; Z95.0 Presence of cardiac pacemaker

== ENCOUNTER 2018-01-31 09:42 | Observation (INO) | payer MEDICARE, OTHER ==
[2018-01-31 09:42] VITALS: PULSE 87
[2018-01-31] MEDS ORDERED: Sodium Chloride 0.9% 1,000 ML IV ONE (10:09)
[2018-01-31 10:38] LABS: BASO # 0.1 K/uL (0.0-0.2); BASO % 0.4 % (0.0-2.0); EOS # 0.1 K/uL (0.0-0.7); EOS % 0.7 % (0.0-4.0); HEMOGLOBIN 15.8 g/dL (12.0-18.0); LYMPH # 1.3 K/uL (1.0-4.3); LYMPH % 7.1 % (20.0-40.0); MEAN CELL VOLUME 85.9 fL (80.0-94.0); MEAN CORPUSCULAR HGB CONC 34.9 g/dL (33.0-37.0); MEAN PLATELET VOLUME 8.6 fL (7.2-11.7); MONO # 1.9 K/uL (0.0-0.8); MONO % 10.8 % (0.0-10.0); NEUT # 14.5 K/uL (1.8-7.0); PLATELET COUNT 266 K/uL (130-400); RBC 5.26 Mil/uL (4.40-5.90); RED CELL DISTRIBUTION WIDTH 14.3 % (11.5-14.5); WHITE BLOOD COUNT 17.9 K/uL (4.8-10.8)
[2018-01-31 10:40] LABS: VENOUS BLOOD GAS BASE EXCESS 5.8 mmol/L (0.0-2.0); VENOUS BLOOD GAS PCO2 40 mmHg (40-60); VENOUS BLOOD GAS PO2 45 mm/Hg (30-55); VENOUS BLOOD PH 7.48 (7.32-7.43)
[2018-01-31 10:55] LABS: TROPONIN I 0.041 ng/mL (0.00-0.120)
--- NOTE | 2018-01-31 11:00 | C.PDOC ---
History Of Present Illness 68 y/o male presents to the ER complaining of cough, shortness of breath, and body aches x 1 week. Patient is also complaining of subjective fever which has been present for the past few days. Patient states that he has chest pain with coughing. He notes that he feels fatigued and has low appetite. He notes that he was supposed to see today, however he was not feeling well so he decided to come to the ER. Denies having nausea, vomiting, abdominal pain, and diarrhea. Time Seen by Provider: 01/31/18 09:59 Chief Complaint (Nursing): Shortness Of Breath History Per: Patient History/Exam Limitations: no limitations Onset/Duration Of Symptoms: Days Current Symptoms Are (Timing): Still Present Severity: Moderate Past Medical History Reviewed: Historical Data, Nursing Documentation, Vital Signs Vital Signs: Last Vital Signs Temp 97.5 F L 01/31/18 09:54 Pulse 70 01/31/18 09:54 Resp 24 01/31/18 10:44 BP 101/55 L 01/31/18 09:54 Pulse Ox 96 01/31/18 09:54 - Medical History PMH: Asthma, Atrial Fibrillation, CHF, COPD, HTN Denies: Chronic Kidney Disease Surgical History: Pacemaker (15 yrs ago) - [facility] Procedures ASSISTANCE WITH RESPIRATORY VENTILATION, 24-96 HRS, CPAP (11/21/17) Family History: States: No Known Family Hx - Social History Hx Alcohol Use: No Hx Substance Use: No - Immunization History Hx Tetanus Toxoid Vaccination: No Hx Influenza Vaccination: No Hx Pneumococcal Vaccination: No Review Of Systems Except As Marked, All Systems Reviewed And Found Negative. Constitutional: Positive for: Fever (subjective fever). Negative for: Chills Respiratory: Positive for: Cough, Shortness of Breath Gastrointestinal: Negative for: Nausea, Vomiting, Abdominal Pain, Diarrhea Physical Exam - Physical Exam Appears: Other (awake, alert, weak) Skin: Normal Color, Warm, Dry Head: Atraumatic, Normacephalic Eye(s): bilateral: Normal Inspection Nose: Normal Oral Mucosa: Moist Neck: Supple Chest: Symmetrical Cardiovascular: Rhythm Regular Respiratory: No Rales, Rhonchi (left lower rhonchi), No Wheezing Gastrointestinal/Abdominal: Normal Exam, Soft, No Tenderness, No Guarding, No Rebound Extremity: Normal ROM, No Swelling (bilateral lower extremities) Neurological/Psych: Oriented x3, Normal Speech ED Course And Treatment - Laboratory Results Result Diagrams: 01/31/18 10:25 01/31/18 10:25 ECG: Interpreted By Me, Viewed By Me ECG Rhythm: Sinus Rhythm Interpretation Of ECG: NSR with normal axises, prolonged QTC, widened QRS, and no ST/ T wave changes Rate From EC O2 Sat by Pulse Oximetry: 96 (RA) Pulse Ox Interpretation: Normal - Other Rad CXR X-Ray: Viewed By Me, Read By Radiologist Interpretation: HISTORY: dyspnea, cough. COMPARISON: Chest x-ray performed 11/21/17. TECHNIQUE: Chest, one view. FINDINGS: LUNGS: Examination limited by habitus and hypoinflation. No focal consolidation. Please note that chest x- ray has limited sensitivity for the detection of pulmonary masses. PLEURA: No significant pleural effusion identified. No definite pneumothorax . CARDIOVASCULAR: Single lead left-sided AICD. Mild cardiomegaly. OSSEOUS STRUCTURES: Degenerative changes. Acromioclavicular arthropathy. VISUALIZED UPPER ABDOMEN: Unremarkable. OTHER FINDINGS: None. IMPRESSION: Single lead left-sided AICD. Mild cardiomegaly. Hypoinflation. Medical Decision Making Medical Decision Making: Plan: --Labs --CXR --Flu Swab --IV Fluids 1L NS bolus given after reviewing CXR and noting no fluid overload. Cipro ivpb given for empiric therapy for leukocytosis. Lactic acid normal. CXR and UA clear. Updates: 12:50 Case discussed with , accepts patient for admission. Disposition - Disposition Disposition: HOSPITALIZED Disposition Time: 12:52 Condition: FAIR - Clinical Impression Clinical Impression: Dyspnea, Leukocytosis - Scribe Statement The provider has reviewed the documentation as recorded by the Scribe Efrain Taveras Provider Attestation: All medical record entries made by the Scribe were at my direction and personally dictated by me. I have reviewed the chart and agree that the record accurately reflects my personal performance of the history, physical exam, medical decision making, and the department course for this patient. I have also personally directed, reviewed, and agree with the discharge instructions and disposition.
[2018-01-31 11:01] LABS: ALB/GLOB RATIO 1.3 (1.0-2.1); ALBUMIN 4.5 g/dL (3.5-5.0); CALCIUM 9.4 mg/dl (8.6-10.4)
[2018-01-31 11:54] LABS: LYMPHOCYTE 9 % (20-40); MONOCYTE 9 % (0-10); NEUTROPHIL 82 % (50-75); PLATELET ESTIMATE NORMAL (NORMAL); TOTAL CELLS COUNTED 100
--- NOTE | 2018-01-31 12:00 | RAD ---
HISTORY: dyspnea, cough COMPARISON: Chest x-ray performed 11/21/17 TECHNIQUE: Chest, one view. FINDINGS: LUNGS: Examination limited by habitus and hypoinflation. No focal consolidation. Please note that chest x-ray has limited sensitivity for the detection of pulmonary masses. PLEURA: No significant pleural effusion identified. No definite pneumothorax . CARDIOVASCULAR: Single lead left-sided AICD. Mild cardiomegaly. OSSEOUS STRUCTURES: Degenerative changes. Acromioclavicular arthropathy. VISUALIZED UPPER ABDOMEN: Unremarkable. OTHER FINDINGS: None. IMPRESSION: Single lead left-sided AICD. Mild cardiomegaly. Hypoinflation.
[2018-01-31 12:07] LABS: SQUAMOUS EPITHIAL 1 /hpf (0-5); URINE BILIRUBIN NEGATIVE (NEGATIVE); URINE BLOOD NEGATIVE (NEGATIVE); URINE CLARITY Hazy (Clear); URINE COLOR Yellow (YELLOW); URINE GLUCOSE (UA) NORMAL (Normal); URINE LEUKOCYTE ESTERASE NEG Leu/uL (Negative); URINE PROTEIN NEGATIVE (NEGATIVE); URINE UROBILINOGEN NORMAL mg/dL (0.2-1.0)
[2018-01-31] MEDS ORDERED: Ciprofloxacin 400mg/200ml D5W 400 MG/200 ML BAG IVPB STA (12:54)
[2018-01-31] MEDS ORDERED: Ciprofloxacin 400mg/200ml D5W 400 MG/200 ML BAG IVPB ONE (13:25)
[2018-01-31] MEDS ORDERED: Albuterol-Ipratrop 3 mg / 0.5 (3 ml) UD ONE (14:16)
[2018-01-31] MEDS ORDERED: Albuterol-Ipratrop 3 mg / 0.5 (3 ml) UD INH STA (14:17)
[2018-01-31 15:19] VITALS: RESP 20
[2018-01-31] MEDS ORDERED: Glucagon Recombinant 1 mg Inj IM PRN (16:21)
[2018-01-31] MEDS ORDERED: Dextrose 50% SYRINGE Inj (50 ml) IV PRN (16:21)
[2018-01-31] MEDS: (Novolog) Insulin Aspart, Recombinant 100 u/ml 10 ml vial SC SCH ×2 (16:30→22:08)
[2018-01-31] MEDS: Potassium Chloride 20 mEq ER Tab PO ONE ×2 (17:30→19:42)
[2018-01-31] MEDS ORDERED: Potassium Chloride 20 mEq/15 ml LIQ UD PO ONE (19:41)
[2018-01-31] MEDS: Budesonide 0.5 mg/2 ml Inhal Susp UD INH SCH (20:26)
[2018-01-31] MEDS: Albuterol-Ipratrop 3 mg / 0.5 (3 ml) UD INH SCH (20:27)
[2018-01-31] MEDS ORDERED: Home Med 1 UNIT (Tizanidine [Zanaflex] 2 MG) PO SCH (22:00)
[2018-01-31] MEDS: Aztreonam 1 GM in Sodium Chloride 0.9% 100 ML IVPB SCH (22:00)
[2018-01-31] MEDS: Pantoprazole 40 mg EC Tab PO SCH (22:01)
[2018-01-31] MEDS: (Lantus) Insulin Glargine, Recombinant SC SCH (22:08)
--- NOTE | 2018-02-01 01:15 | HP ---
HISTORY OF PRESENT ILLNESS: This is a 68-year-old male with history of multiple medical problems, including dilated cardiomyopathy, status post ICD placement, presented to emergency room with symptoms of generalized body ache, cough, and shortness of breath that has been progressive over the last 2 days prior to admission. The patient was supposed to see me on the day of admission. Because the patient was not feeling well, he was brought to emergency room by his daughter. The patient was evaluated and found to be having leukocytosis and hypotensive. Subsequently, the patient was admitted for further management. REVIEW OF SYSTEMS: Other review of systems is negative. ALLERGIES: POSITIVE FOR PENICILLIN. MEDICATIONS: As per MAR, were reviewed and ordered. SOCIAL HISTORY: Ex-smoker. No EtOH or substance abuse. FAMILY HISTORY: Noncontributory. PHYSICAL EXAMINATION: GENERAL: The patient is in bed, not in any cardiopulmonary distress at the time of this examination. VITAL SIGNS: Blood pressure 106/62, temperature 98, respiratory rate 20, and pulse 71. HEENT: Pupils equal and reactive to light. Normal-appearing mucosa of the conjunctivae, oropharynx, and nasal membrane mucosa. NECK: Supple. No JVD. No carotid bruit. No lymph node. No thyromegaly. CHEST AND LUNGS: Bilateral symmetrical expansion. Good air exchange. No rales, no rhonchi. CARDIOVASCULAR SYSTEM: PMI not localized. S1, S2. No additional sounds. ABDOMEN: Normoactive bowel sounds. No tenderness. No organomegaly. No masses. EXTREMITIES: No cyanosis, no clubbing, no edema. CENTRAL NERVOUS SYSTEM: Alert, awake, oriented x3. No neurological deficit could be appreciated. ASSESSMENT: 1. Clinical pneumonia as the patient has respiratory symptoms and leukocytosis, although there is no pulmonary infiltration in the chest x-ray. 2. History of lung mass. 3. Type 2 diabetes mellitus. 4. Dilated cardiomyopathy, status post implantable cardioverter-defibrillator placement. PLAN: We will start the patient on IV antibiotics and bronchodilators. Pulmonary consult. Resume the patient's home medications. Accu-Cheks with insulin coverage. Carlos Monson MD
[2018-02-01] MEDS: Albuterol-Ipratrop 3 mg / 0.5 (3 ml) UD INH SCH ×4 (02:00→19:25)
[2018-02-01] MEDS: Levothyroxine 50 MCG TAB PO SCH (05:35)
[2018-02-01] MEDS: Budesonide 0.5 mg/2 ml Inhal Susp UD INH SCH ×2 (08:04→19:25)
[2018-02-01] MEDS: (Novolog) Insulin Aspart, Recombinant 100 u/ml 10 ml vial SC SCH ×4 (08:30→22:04)
[2018-02-01] MEDS: Aztreonam 1 GM in Sodium Chloride 0.9% 100 ML IVPB SCH ×2 (09:54→22:09)
--- NOTE | 2018-02-01 11:41 | CT ---
Date of service: 2018-01-31 18:05:35 CT chest without IV contrast Indication: Shortness of breath Technique: Contiguous axial images were obtained through the chest without intravenous contrast enhancement. Sagittal and coronal reconstructions were generated and reviewed. This CT exam was performed using 1 or more of the following dose reduction techniques: Automated exposure control, adjustment of the MAA and/or kV according to patient size, and/or use of iterative reconstruction technique. Radiation dose (DLP): 488.54 MGy-cm. Comparison: Chest x-ray performed 01/31/18, CT chest, abdomen, and pelvis with contrast performed 11/21/17 Findings: Visualized portions of the inferior thyroid gland appear unremarkable. The noncontrast mediastinal and hilar vascular structures appear grossly unremarkable. Single lead left-sided AICD. Cardiomegaly. Dense atherosclerotic calcifications of the aorta. Sub cm mediastinal/prevascular lymph nodes, nonspecific. 7 mm ground-glass nodule at the right lung base, grossly stable when remeasured in a similar location. Centrilobular emphysema. Patchy nodular opacities, possibly infiltrates evident within the bilateral upper and lower lobes. Small left pleural effusion/thickening. No pneumothorax. Scattered calcified granulomas. Small hiatal hernia. Gastroesophageal reflux. Limited visualization of the noncontrast upper abdomen: 13 mm left renal hypodense lesion measures approximately 4 HU consistent with a cyst. Bilateral gynecomastia. Degenerative changes of the spine. Impression: 7 mm ground-glass nodule at the right lung base, grossly stable when remeasured in similar location. According to 2017 Fleischner criteria, CT at 6-12 months to confirm persistent from original detection (01/01/18), then CT every 2 years until 5 years is recommended. Patchy nodular opacities, possibly infiltrates bilaterally. Recommend short-term follow-up upon completion of treatment in order to assess for complete resolution. Centrilobular emphysema. Small left pleural effusion/thickening. Scattered calcified granulomas. Cardiomegaly. Dense coronary artery calcifications. Small hiatal hernia/gastroesophageal reflux. 13 mm probable left renal cyst. Additional findings as above. Preliminary impression was provided by [facility]. Findings discussed with CHRISTIANO Whatley on 02/01/18 at 11:35 a.m..
[2018-02-01] MEDS: Potassium Chloride 20 mEq/15 ml LIQ UD PO SCH (18:34)
--- NOTE | 2018-02-01 22:00 | PN ---
DATE: 02/01/2018 SUBJECTIVE: The patient is seen today on 02/01/2018. He is having less shortness of breath and body aches. PHYSICAL EXAMINATION: VITAL SIGNS: Blood pressure is 108/66, temperature 98.1, respiratory rate 20, and pulse 68. HEENT: Pupils equal, reactive to light. Normal-appearing mucosa of the conjunctivae, oropharynx and nasal membrane mucosa. NECK: Supple. No JVD. No carotid bruit. No lymph node. No thyromegaly. CHEST AND LUNGS: Bilateral symmetrical expansion. Good air exchange. No rales, no rhonchi. CARDIOVASCULAR SYSTEM: PMI not localized. S1 and S2. No additional sounds. ABDOMEN: Normoactive bowel sounds. No tenderness. No organomegaly. No masses. EXTREMITIES: No cyanosis, no clubbing, no edema. [employer] CHAIR: Alert, awake, oriented x3. No neurological deficit could be appreciated. IMAGING STUDIES: CAT scan of the chest showed bilateral infiltration as well as there is a stable pulmonary nodule. The patient is refusing any pulmonary cardiac workup and also he is refusing pulmonary consultation. The patient stated that he does not want any workup and he knows that he has a nodule in his lung that might be cancer, but he does not want to do any further workup for it. ASSESSMENT : Pneumonia, congestive heart failure both systolic and diastolic, status post implantable cardioverter defibrillator placement, type 2 diabetes mellitus, chronic kidney disease stage III. PLAN: We will repeat the blood work in the morning. Continue current antibiotics and bronchodilators. Carlos Monson MD
[2018-02-01] MEDS: (Lantus) Insulin Glargine, Recombinant SC SCH (22:13)
[2018-02-01] MEDS: Pantoprazole 40 mg EC Tab PO SCH (22:14)
[2018-02-02] MEDS: Albuterol-Ipratrop 3 mg / 0.5 (3 ml) UD INH SCH ×4 (02:00→21:21)
[2018-02-02] MEDS: Levothyroxine 50 MCG TAB PO SCH (06:17)
[2018-02-02] MEDS: Budesonide 0.5 mg/2 ml Inhal Susp UD INH SCH ×2 (07:17→21:21)
[2018-02-02] MEDS: (Novolog) Insulin Aspart, Recombinant 100 u/ml 10 ml vial SC SCH ×4 (08:39→22:12)
--- NOTE | 2018-02-02 09:39 | CP.PCM.PN ---
<Mona Rachel - Last Filed: 02/02/18 10:52> Subjective - Date & Time of Evaluation Date of Evaluation: 02/02/18 Time of Evaluation: 07:25 - Subjective Subjective: Patient examined at bedside with family in room. Per nursing reports, pt refusing blood work and pulmonology workup. Pt was informed of the benefits of getting blood work on him and understand, however still refused. Patient was apprehensive of me examining and questioning him, however finally gave permission. He reports persistent cough, productive of sputum, and improvement in symptoms s/p nebulizer treatments in hospital. He reports a chronic hx of asthma treated only with rescue inhaler at home. Pt reports decreased appetite; denies chest pain, SOB, nausea, diarrhea. Objective - Vital Signs/Intake and Output Vital Signs (last 24 hours): Temp Pulse Resp BP Pulse Ox 98.6 F 75 20 127/71 98 02/02/18 08:00 02/02/18 08:00 02/02/18 08:00 02/02/18 08:00 02/02/18 08:00 Intake and Output: 02/02/18 02/02/18 06:59 18:59 Intake Total 500 240 Balance 500 240 - Medications Medications: Current Medications Albuterol/Ipratropium (Duoneb 3 Mg/0.5 Mg (3 Ml) Ud) 3 ml INH RQ6 [facility] Last Admin: 02/02/18 07:17 Dose: 3 ml Amiodarone HCl (Cordarone) 200 mg PO DAILY [facility] Last Admin: 02/01/18 09:50 Dose: 200 mg Bisoprolol Fumarate (Zebeta) 5 mg PO DAILY [facility] Last Admin: 02/01/18 10:29 Dose: 5 mg Budesonide (Pulmicort Respules) 0.5 mg INH RQ12 [facility] Last Admin: 02/02/18 07:17 Dose: 0.5 mg Dextrose (Dextrose 50% Inj) 0 ml IV STAT PRN; Protocol PRN Reason: Hypoglycemia Protocol Dextrose (Glutose 15) 0 gm PO ONCE PRN; Protocol PRN Reason: Hypoglycemia Protocol Glucagon (Glucagen Diagnostic Kit) 0 mg IM STAT PRN; Protocol PRN Reason: Hypoglycemia Protocol Dextrose (Dextrose 5% In Water 1000 Ml) 1,000 mls @ 0 mls/hr IV .Q0M PRN; Protocol PRN Reason: Hypoglycemia Protocol Aztreonam 1 gm/ Sodium (Chloride) 100 mls @ 100 mls/hr IVPB Q12 [facility]; Protocol Last Admin: 02/01/18 22:09 Dose: 100 mls/hr Influenza Virus Vaccine (Fluzone Quad [id number]) 60 mcg IM .ONCE ONE Stop: 02/02/18 10:01 Insulin Aspart (Novolog) 0 unit SC [facility]; Protocol Last Admin: 02/02/18 08:39 Dose: 1 units Insulin Glargine (Lantus) 20 unit SC [facility] Last Admin: 02/01/18 22:13 Dose: 20 units Levothyroxine Sodium (Synthroid) 50 mcg PO DAILY@0630 [facility] Last Admin: 02/02/18 06:17 Dose: 50 mcg Pantoprazole Sodium (Protonix Ec Tab) 40 mg PO [facility] Last Admin: 02/01/18 22:14 Dose: 40 mg Pneumococcal Polyvalent Vaccine (Pneumovax 23 Vaccine) 0.5 ml IM .ONCE ONE Stop: 02/02/18 10:01 Potassium Chloride (Potassium Chloride Oral Soln) 20 meq PO DAILY [facility] Stop: 02/02/18 10:01 Last Admin: 02/01/18 18:34 Dose: 20 meq Rivaroxaban (Xarelto) 15 mg PO [facility] Last Admin: 02/01/18 22:37 Dose: 15 mg Rosuvastatin Calcium (Crestor) 10 mg PO [facility] Spironolactone (Aldactone) 25 mg PO DAILY [facility] Last Admin: 02/01/18 09:50 Dose: 25 mg Torsemide (Demadex) 20 mg PO BID [facility] Last Admin: 02/01/18 17:19 Dose: 20 mg - Labs Labs: 01/31/18 10:25 01/31/18 10:25 - Constitutional Appears: No Acute Distress - Head Exam Head Exam: ATRAUMATIC, NORMAL INSPECTION, NORMOCEPHALIC - Eye Exam Eye Exam: EOMI, Normal appearance - ENT Exam ENT Exam: Mucous Membranes Moist, Normal Exam - Neck Exam Neck Exam: Normal Inspection - Respiratory Exam Respiratory Exam: Rhonchi, Wheezes, NORMAL BREATHING PATTERN - Cardiovascular Exam Cardiovascular Exam: REGULAR RHYTHM, +S1, +S2 Additional comments: ICD left chest wall - GI/Abdominal Exam GI & Abdominal Exam: Distended, Soft, Normal Bowel Sounds. absent: Tenderness - Extremities Exam Extremities Exam: Normal Inspection. absent: Calf Tenderness - Neurological Exam Neurological Exam: Alert, Awake, Oriented x3 - Psychiatric Exam Psychiatric exam: Normal Affect, Normal Mood - Skin Skin Exam: Dry, Intact, Normal Color, Warm Assessment and Plan - Assessment and Plan (Free Text) Assessment: 68 year old male w/ pmhx of lung lesions, asthma, HTN, DM2, A. Fib, CHF(ICD)admitted with PNA PNA, clinical -CT chest shows no focal consolidation, only scattered possible infiltrates. -WBC on admission 17.9, no repeat as pt refused -afebrile -aztreonam 1g q12 Asthma/COPD -active wheezing -duonebs q6 -pulmicort 0.5mg q12 A. Fib -amiodarone 200mg qd HTN/CHF -bisoprolol 5mg qd -torsemide 20mg po BID DM2 -Novolog achs -lantus 20u hs Hypothyroidism -levothyroxine 50mcg <Tony Jauregui H - Last Filed: 02/02/18 14:31> Objective - Vital Signs/Intake and Output Vital Signs (last 24 hours): Temp Pulse Resp BP Pulse Ox 98.6 F 75 20 127/71 98 02/02/18 08:00 02/02/18 08:00 02/02/18 08:00 02/02/18 08:00 02/02/18 08:00 Intake and Output: 02/02/18 02/02/18 06:59 18:59 Intake Total 500 240 Balance 500 240 - Medications Medications: Current Medications Albuterol/Ipratropium (Duoneb 3 Mg/0.5 Mg (3 Ml) Ud) 3 ml INH RQ6 [facility] Last Admin: 02/02/18 13:35 Dose: 3 ml Amiodarone HCl (Cordarone) 200 mg PO DAILY [facility] Last Admin: 02/02/18 09:49 Dose: 200 mg Bisoprolol Fumarate (Zebeta) 5 mg PO DAILY [facility] Last Admin: 02/02/18 09:49 Dose: 5 mg Budesonide (Pulmicort Respules) 0.5 mg INH RQ12 [facility] Last Admin: 02/02/18 07:17 Dose: 0.5 mg Dextrose (Dextrose 50% Inj) 0 ml IV STAT PRN; Protocol PRN Reason: Hypoglycemia Protocol Dextrose (Glutose 15) 0 gm PO ONCE PRN; Protocol PRN Reason: Hypoglycemia Protocol Glucagon (Glucagen Diagnostic Kit) 0 mg IM STAT PRN; Protocol PRN Reason: Hypoglycemia Protocol Dextrose (Dextrose 5% In Water 1000 Ml) 1,000 mls @ 0 mls/hr IV .Q0M PRN; P rotocol PRN Reason: Hypoglycemia Protocol Aztreonam 1 gm/ Sodium (Chloride) 100 mls @ 100 mls/hr IVPB Q12 [facility]; Protocol Last Admin: 02/02/18 10:31 Dose: 100 mls/hr Insulin Aspart (Novolog) 0 unit SC [facility]; Protocol Last Admin: 02/02/18 12:11 Dose: Not Given Insulin Glargine (Lantus) 20 unit SC HS [facility] Last Admin: 02/01/18 22:13 Dose: 20 units Levothyroxine Sodium (Synthroid) 50 mcg PO DAILY@0630 [facility] Last Admin: 02/02/18 06:17 Dose: 50 mcg Pantoprazole Sodium (Protonix Ec Tab) 40 mg PO HS [facility] Last Admin: 02/01/18 22:14 Dose: 40 mg Rivaroxaban (Xarelto) 15 mg PO HS [facility] Last Admin: 02/01/18 22:37 Dose: 15 mg Rosuvastatin Calcium (Crestor) 10 mg PO HS [facility] Spironolactone (Aldactone) 25 mg PO DAILY [facility] Last Admin: 02/02/18 09:49 Dose: 25 mg Torsemide (Demadex) 20 mg PO BID [facility] Last Admin: 02/02/18 09:50 Dose: 20 mg - Labs Labs: 01/31/18 10:25 01/31/18 10:25 Attending/Attestation - Attestation I have personally seen and examined this patient.: Yes I have fully participated in the care of the patient.: Yes I have reviewed all pertinent clinical information, including history, physical exam and plan: Yes Notes (Text): 02/02/18 14:31 Medical attending: Patient was seen and examined by me, agrees the above note by the hospital medical assistant. There was family members at bedside, the patient was okay with this. We came and introduced ourselves we explained to the patient that were covering for the patient's primary care physician. The patient is not in any acute distress. The patient was very skeptical of us and asked us a lot of questions. Earlier in the morning he did not want any lab work done so previously mentioned he did have elevated white blood cell count is currently on IV antibiotics due to concerns for pneumonia. He has an allergy to penicillin, therefore he is being treated with IV aztreonam He explained to us that he did not see the value in additional lab work. And we made it clear to him the reasonings for skin lab work. However he firmly declined to have any lab work done, the patient's family member was present at bedside to witness our discussion Thank you very much Tony Jauregui
[2018-02-02] MEDS ORDERED: Pneumococcal 23-Valent Vaccine IM ONE (10:00)
[2018-02-02] MEDS ORDERED: Influenza Vaccine 60 MCG/0.5 ML SYR (3 yr & up) IM ONE (10:00)
[2018-02-02] MEDS: Aztreonam 1 GM in Sodium Chloride 0.9% 100 ML IVPB SCH ×2 (10:31→21:11)
[2018-02-02] MEDS: Potassium Chloride 20 mEq/15 ml LIQ UD PO SCH (12:36)
[2018-02-02] MEDS: Pantoprazole 40 mg EC Tab PO SCH (21:11)
[2018-02-02] MEDS: (Lantus) Insulin Glargine, Recombinant SC SCH (21:12)
[2018-02-03] MEDS: Albuterol-Ipratrop 3 mg / 0.5 (3 ml) UD INH SCH ×5 (02:42→20:24)
[2018-02-03] MEDS: Levothyroxine 50 MCG TAB PO SCH (06:00)
[2018-02-03] MEDS: Budesonide 0.5 mg/2 ml Inhal Susp UD INH SCH ×2 (07:12→20:24)
--- NOTE | 2018-02-03 09:23 | CP.PCM.PN ---
<Hoang Marcial - Last Filed: 02/03/18 11:24> Subjective - Date & Time of Evaluation Date of Evaluation: 02/03/18 Time of Evaluation: 06:00 - Subjective Subjective: PGY-[address] Jauregui (covering for Dr Monson) Patient seen and examined at bedside. Patient reports no acute events overnight. Patient denies any complains at this time. Patient admits to some shortness of breath. Patient denies generalized pain, fever, chills, chest pain, abdominal pain, nausea or vomiting. Objective - Vital Signs/Intake and Output Vital Signs (last 24 hours): Temp Pulse Resp BP Pulse Ox 98.4 F 71 20 110/71 94 L 02/03/18 00:00 02/03/18 00:00 02/03/18 00:00 02/03/18 00:00 02/03/18 00:00 Intake and Output: 02/03/18 02/03/18 06:59 18:59 Intake Total 600 Balance 600 - Medications Medications: Current Medications Albuterol/Ipratropium (Duoneb 3 Mg/0.5 Mg (3 Ml) Ud) 3 ml INH RQ6 [facility] Last Admin: 02/03/18 07:12 Dose: 3 ml Amiodarone HCl (Cordarone) 200 mg PO DAILY [facility] Last Admin: 02/02/18 09:49 Dose: 200 mg Bisoprolol Fumarate (Zebeta) 5 mg PO DAILY [facility] Last Admin: 02/02/18 09:49 Dose: 5 mg Budesonide (Pulmicort Respules) 0.5 mg INH RQ12 [facility] Last Admin: 02/03/18 07:12 Dose: 0.5 mg Dextrose (Dextrose 50% Inj) 0 ml IV STAT PRN; Protocol PRN Reason: Hypoglycemia Protocol Dextrose (Glutose 15) 0 gm PO ONCE PRN; Protocol PRN Reason: Hypoglycemia Protocol Glucagon (Glucagen Diagnostic Kit) 0 mg IM STAT PRN; Protocol PRN Reason: Hypoglycemia Protocol Dextrose (Dextrose 5% In Water 1000 Ml) 1,000 mls @ 0 mls/hr IV .Q0M PRN; Protocol PRN Reason: Hypoglycemia Protocol Aztreonam 1 gm/ Sodium (Chloride) 100 mls @ 100 mls/hr IVPB Q12 [facility]; Protocol Last Admin: 02/02/18 21:11 Dose: 100 mls/hr Insulin Aspart (Novolog) 0 unit SC [facility]; Protocol Last Admin: 02/02/18 22:12 Dose: Not Given Insulin Glargine (Lantus) 20 unit SC [facility] Last Admin: 02/02/18 21:12 Dose: 20 units Levothyroxine Sodium (Synthroid) 50 mcg PO DAILY@0630 [facility] Last Admin: 02/03/18 06:00 Dose: 50 mcg Pantoprazole Sodium (Protonix Ec Tab) 40 mg PO [facility] Last Admin: 02/02/18 21:11 Dose: 40 mg Rivaroxaban (Xarelto) 15 mg PO [facility] Last Admin: 02/02/18 21:11 Dose: 15 mg Rosuvastatin Calcium (Crestor) 10 mg PO [facility] Last Admin: 02/02/18 21:11 Dose: 10 mg Spironolactone (Aldactone) 25 mg PO DAILY [facility] Last Admin: 02/02/18 09:49 Dose: 25 mg Torsemide (Demadex) 20 mg PO BID [facility] Last Admin: 02/02/18 17:16 Dose: 20 mg - Labs Labs: 01/31/18 10:25 01/31/18 10:25 - Constitutional Appears: Non-toxic, No Acute Distress - Head Exam Head Exam: ATRAUMATIC, NORMAL INSPECTION, NORMOCEPHALIC - Eye Exam Eye Exam: EOMI, Normal appearance - ENT Exam ENT Exam: Mucous Membranes Moist, Normal Exam - Respiratory Exam Respiratory Exam: Clear to Ausculation Bilateral, NORMAL BREATHING PATTERN. absent: Accessory Muscle Use, Decreased Breath Sounds, Rales, Rhonchi, Wheezes, Respiratory Distress - Cardiovascular Exam Cardiovascular Exam: REGULAR RHYTHM, +S1, +S2. absent: Tachycardia - GI/Abdominal Exam GI & Abdominal Exam: Distended, Soft, Normal Bowel Sounds. absent: Guarding, Tenderness - Extremities Exam Extremities Exam: Full ROM, Normal Capillary Refill, Normal Inspection. absent: Calf Tenderness - Neurological Exam Neurological Exam: Alert, Awake, Oriented x3 - Psychiatric Exam Psychiatric exam: Normal Affect, Normal Mood - Skin Skin Exam: Dry, Intact, Normal Color, Warm Assessment and Plan - Assessment and Plan (Free Text) Plan: PNA -CT chest shows no focal consolidation, only scattered possible infiltrates. -WBC on admission 17.9, - no labs as pt refused -afebrile at 98, O2 sat 94% - continue NC 2L PRN -continue aztreonam 1g q12 Asthma/COPD -continue duonebs q6 -continue pulmicort 0.5mg q12 A. Fib -continue amiodarone 200mg qd HTN/CHF -bisoprolol 5mg qd -torsemide 20mg po BID DM2 -Novolog achs -lantus 20u hs Hypothyroidism -levothyroxine 50mcg Plan to be discussed discussed with Dr Jauregui (covering for Dr Monson) Hoang Marcial, PGY-1 <Tony Jauregui H - Last Filed: 02/03/18 11:53> Objective - Vital Signs/Intake and Output Vital Signs (last 24 hours): Temp Pulse Resp BP Pulse Ox 98.4 F 71 20 110/71 94 L 02/03/18 00:00 02/03/18 00:00 02/03/18 00:00 02/03/18 00:00 02/03/18 00:00 Intake and Output: 02/03/18 02/03/18 06:59 18:59 Intake Total 600 Balance 600 - Medications Medications: Current Medications Albuterol/Ipratropium (Duoneb 3 Mg/0.5 Mg (3 Ml) Ud) 3 ml INH RQ6 [facility] Last Admin: 02/03/18 07:12 Dose: 3 ml Amiodarone HCl (Cordarone) 200 mg PO DAILY [facility] Last Admin: 02/03/18 10:22 Dose: 200 mg Bisoprolol Fumarate (Zebeta) 5 mg PO DAILY [facility] Last Admin: 02/03/18 10:22 Dose: 5 mg Budesonide (Pulmicort Respules) 0.5 mg INH RQ12 [facility] Last Admin: 02/03/18 07:12 Dose: 0.5 mg Dextrose (Dextrose 50% Inj) 0 ml IV STAT PRN; Protocol PRN Reason: Hypoglycemia Protocol Dextrose (Glutose 15) 0 gm PO ONCE PRN; Protocol PRN Reason: Hypoglycemia Protocol Glucagon (Glucagen Diagnostic Kit) 0 mg IM STAT PRN; Protocol PRN Reason: Hypoglycemia Protocol Dextrose (Dextrose 5% In Water 1000 Ml) 1,000 mls @ 0 mls/hr IV .Q0M PRN; Protocol PRN Reason: Hypoglycemia Protocol Aztreonam 1 gm/ Sodium (Chloride) 100 mls @ 100 mls/hr IVPB Q12 [facility]; Protocol Last Admin: 02/03/18 10:21 Dose: 100 mls/hr Insulin Aspart (Novolog) 0 unit SC [facility]; Protocol Last Admin: 02/03/18 09:27 Dose: 1 units Insulin Glargine (Lantus) 20 unit SC HS [facility] Last Admin: 02/02/18 21:12 Dose: 20 units Levothyroxine Sodium (Synthroid) 50 mcg PO DAILY@0630 [facility] Last Admin: 02/03/18 06:00 Dose: 50 mcg Pantoprazole Sodium (Protonix Ec Tab) 40 mg PO HS [facility] Last Admin: 02/02/18 21:11 Dose: 40 mg Rivaroxaban (Xarelto) 15 mg PO HS [facility] Last Admin: 02/02/18 21:11 Dose: 15 mg Rosuvastatin Calcium (Crestor) 10 mg PO [facility] Last Admin: 02/02/18 21:11 Dose: 10 mg Spironolactone (Aldactone) 25 mg PO DAILY [facility] Last Admin: 02/03/18 10:22 Dose: 25 mg Torsemide (Demadex) 20 mg PO BID [facility] Last Admin: 02/03/18 10:22 Dose: 20 mg - Labs Labs: 01/31/18 10:25 01/31/18 10:25 Attending/Attestation - Attestation I have personally seen and examined this patient.: Yes I have fully participated in the care of the patient.: Yes I have reviewed all pertinent clinical information, including history, physical exam and plan: Yes Notes (Text): 02/03/18 11:45 Medical attending: I came and saw and examined the patient later in the morning. He reported no acute events overnight The patient still does NOT want any lab work - he was polite about it, but also firm about this even though I explained to him that he is on medication which could alter his CBC/Chem 7. He said he would be fine. Family was not present in the room this morning. He explained his breathing was improved. He denied chest pain, denied palpitations, denied abominal pain. He explained that probably tommorow he would be well enough to go home. Tony Jauregui
[2018-02-03] MEDS: (Novolog) Insulin Aspart, Recombinant 100 u/ml 10 ml vial SC SCH ×4 (09:27→21:33)
[2018-02-03] MEDS: Aztreonam 1 GM in Sodium Chloride 0.9% 100 ML IVPB SCH ×2 (10:21→21:20)
[2018-02-03] MEDS: (Lantus) Insulin Glargine, Recombinant SC SCH (21:20)
[2018-02-03] MEDS: Pantoprazole 40 mg EC Tab PO SCH (21:36)
[2018-02-04 01:00] VITALS: O2SAT 96
[2018-02-04] MEDS: Albuterol-Ipratrop 3 mg / 0.5 (3 ml) UD INH SCH ×3 (02:08→13:05)
--- NOTE | 2018-02-04 05:48 | CP.PCM.PN ---
Subjective - Date & Time of Evaluation Date of Evaluation: 02/04/18 Time of Evaluation: 05:48 - Subjective Subjective: PGY-[address] Jauregui (covering for Dr Monson) Patient is seen and examined at bedside. Patient states feeling better. No acute changes reported. Continues to feel some shortness of breath. Patient denies fever, chills, chest pain, nausea, vomiting, diarrhea, constipation. Patient is walking and tolerating diet. Objective - Vital Signs/Intake and Output Vital Signs (last 24 hours): Temp Pulse Resp BP Pulse Ox 98.2 F 79 20 120/66 96 02/04/18 00:00 02/04/18 00:00 02/04/18 00:00 02/04/18 00:00 02/04/18 00:00 - Medications Medications: Current Medications Albuterol/Ipratropium (Duoneb 3 Mg/0.5 Mg (3 Ml) Ud) 3 ml INH RQ6 [facility]MA[facility] Last Admin: 02/04/18 02:08 Dose: 3 ml Amiodarone HCl (Cordarone) 200 mg PO DAILY [facility] Last Admin: 02/03/18 10:22 Dose: 200 mg Bisoprolol Fumarate (Zebeta) 5 mg PO DAILY [facility] Last Admin: 02/03/18 10:22 Dose: 5 mg Budesonide (Pulmicort Respules) 0.5 mg INH RQ12 [facility] Last Admin: 02/03/18 20:24 Dose: 0.5 mg Dextrose (Dextrose 50% Inj) 0 ml IV STAT PRN; Protocol PRN Reason: Hypoglycemia Protocol Dextrose (Glutose 15) 0 gm PO ONCE PRN; Protocol PRN Reason: Hypoglycemia Protocol Glucagon (Glucagen Diagnostic Kit) 0 mg IM STAT PRN; Protocol PRN Reason: Hypoglycemia Protocol Aztreonam 1 gm/ Sodium (Chloride) 100 mls @ 100 mls/hr IVPB Q12 [facility]; Protocol Last Admin: 02/03/18 21:20 Dose: 100 mls/hr Insulin Aspart (Novolog) 0 unit SC [facility]; Protocol Last Admin: 02/03/18 21:33 Dose: Not Given Insulin Glargine (Lantus) 20 unit SC HS [facility] Last Admin: 02/03/18 21:20 Dose: 20 units Levothyroxine Sodium (Synthroid) 50 mcg PO DAILY@0630 [facility] Last Admin: 02/03/18 06:00 Dose: 50 mcg Pantoprazole Sodium (Protonix Ec Tab) 40 mg PO HS [facility] Last Admin: 02/03/18 21:36 Dose: 40 mg Rivaroxaban (Xarelto) 15 mg PO HS [facility] Last Admin: 02/03/18 21:20 Dose: 15 mg Rosuvastatin Calcium (Crestor) 10 mg PO HS [facility] Last Admin: 02/03/18 21:20 Dose: 10 mg Spironolactone (Aldactone) 25 mg PO DAILY [facility] Last Admin: 02/03/18 10:22 Dose: 25 mg Torsemide (Demadex) 20 mg PO BID [facility] Last Admin: 02/03/18 17:47 Dose: 20 mg - Labs Labs: 01/31/18 10:25 01/31/18 10:25 - Constitutional Appears: Non-toxic, No Acute Distress - Head Exam Head Exam: ATRAUMATIC, NORMAL INSPECTION, NORMOCEPHALIC - Eye Exam Eye Exam: EOMI, Normal appearance - ENT Exam ENT Exam: Mucous Membranes Moist, Normal Exam - Neck Exam Neck Exam: Full ROM, Normal Inspection - Respiratory Exam Respiratory Exam: Wheezes, NORMAL BREATHING PATTERN. absent: Accessory Muscle Use, Respiratory Distress - Cardiovascular Exam Cardiovascular Exam: REGULAR RHYTHM, +S1, +S2 - GI/Abdominal Exam GI & Abdominal Exam: Distended, Soft, Normal Bowel Sounds. absent: Guarding, Tenderness - Extremities Exam Extremities Exam: Full ROM, Normal Inspection - Back Exam Back Exam: Full ROM, NORMAL INSPECTION - Neurological Exam Neurological Exam: Alert, Awake, Oriented x3 - Psychiatric Exam Psychiatric exam: Normal Affect, Normal Mood - Skin Skin Exam: Dry, Intact, Normal Color, Warm Assessment and Plan - Assessment and Plan (Free Text) Plan: PNA -CT chest shows no focal consolidation, only scattered possible infiltrates. -WBC on admission 17.9, - no labs as pt refused -afebrile at 98, O2 sat 94% - continue NC 2L PRN -continue aztreonam 1g q12 - continues to refuse blood work at this time Asthma/COPD -continue duonebs q6 -continue pulmicort 0.5mg q12 A. Fib -continue amiodarone 200mg qd HTN/CHF -bisoprolol 5mg qd -torsemide 20mg po BID DM2 -Novolog achs -lantus 20u hs Hypothyroidism -levothyroxine 50mcg Plan to be discussed discussed with Dr Shania Marcial, PGY-1
[2018-02-04] MEDS: Levothyroxine 50 MCG TAB PO SCH (06:02)
[2018-02-04] MEDS: Budesonide 0.5 mg/2 ml Inhal Susp UD INH SCH (07:05)
[2018-02-04] MEDS: (Novolog) Insulin Aspart, Recombinant 100 u/ml 10 ml vial SC SCH ×2 (07:30→12:12)
[2018-02-04 08:35] VITALS: BP 135/78; PULSE 80; TEMP 97.8
[2018-02-04] MEDS: Aztreonam 1 GM in Sodium Chloride 0.9% 100 ML IVPB SCH (10:01)
--- NOTE | 2018-02-04 10:09 | CP.PCM.DIS ---
Provider - Provider Date of Admission: 01/31/18 12:52 Attending physician: Carlos Monson MD Primary care physician: Dr Monson Time Spent in preparation of Discharge (in minutes): 29 Hospital Course - Lab Results Lab Results: Micro Results 01/31/18 12:30 Blood Blood Culture - Preliminary NO GROWTH AFTER 3 DAYS 01/31/18 13:00 Blood Blood Culture - Preliminary NO GROWTH AFTER 3 DAYS Most Recent Lab Values WBC 17.9 K/uL (4.8-10.8) H 01/31/18 10:25 RBC 5.26 Mil/uL (4.40-5.90) 01/31/18 10:25 Hgb 15.8 g/dL (12.0-18.0) 01/31/18 10:25 Hct 45.1 % (35.0-51.0) 01/31/18 10:25 MCV 85.9 fL (80.0-94.0) 01/31/18 10:25 MCH 30.0 pg (27.0-31.0) 01/31/18 10:25 MCHC 34.9 g/dL (33.0-37.0) 01/31/18 10:25 RDW 14.3 % (11.5-14.5) 01/31/18 10:25 Plt Count 266 K/uL (130-400) 01/31/18 10:25 MPV 8.6 fL (7.2-11.7) 01/31/18 10:25 Neut % (Auto) 81.0 % (50.0-75.0) H 01/31/18 10:25 Lymph % (Auto) 7.1 % (20.0-40.0) L 01/31/18 10:25 [place]anner % (Auto) 10.8 % (0.0-10.0) H 01/31/18 10:25 Eos % (Auto) 0.7 % (0.0-4.0) 01/31/18 10:25 Baso % (Auto) 0.4 % (0.0-2.0) 01/31/18 10:25 Neut # (Auto) 14.5 K/uL (1.8-7.0) H 01/31/18 10:25 Lymph # (Auto) 1.3 K/uL (1.0-4.3) 01/31/18 10:25 Banner # (Auto) 1.9 K/uL (0.0-0.8) H 01/31/18 10:25 Eos # (Auto) 0.1 K/uL (0.0-0.7) 01/31/18 10:25 Baso # (Auto) 0.1 K/uL (0.0-0.2) 01/31/18 10:25 Neutrophils % (Manual) 82 % (50-75) H 01/31/18 10:25 Lymphocytes % (Manual) 9 % (20-40) L 01/31/18 10:25 Monocytes % (Manual) 9 % (0-10) 01/31/18 10:25 Platelet Estimate Normal (NORMAL) 01/31/18 10:25 RBC Morphology Normal 01/31/18 10:25 pO2 45 mm/Hg (30-55) 01/31/18 10:36 VBG pH 7.48 (7.32-7.43) H 01/31/18 10:36 VBG pCO2 40 mmHg (40-60) 01/31/18 10:36 VBG HCO3 29.1 mmol/L 01/31/18 10:36 VBG Total CO2 31.0 mmol/L (22-28) H 01/31/18 10:36 VBG O2 Sat (Calc) 84.4 % (40-65) H 01/31/18 10:36 VBG Base Excess 5.8 mmol/L (0.0-2.0) H 01/31/18 10:36 VBG Potassium 2.8 mmol/L (3.6-5.2) L 01/31/18 10:36 Sodium 130.0 mmol/l (132-148) L 01/31/18 10:36 Chloride 93.0 mmol/L (98-107) L 01/31/18 10:36 Glucose 131 mg/dl (75-110) H 01/31/18 10:36 Lactate 1.4 mmol/L (0.7-2.1) 01/31/18 10:36 FiO2 21.0 % 01/31/18 10:36 Sodium 132 mmol/L (132-148) 01/31/18 10:25 Potassium 3.3 mmol/L (3.6-5.2) L 01/31/18 10:25 Chloride 86 mmol/L (98-107) L 01/31/18 10:25 Carbon Dioxide 31 mmol/L (22-30) H 01/31/18 10:25 Anion Gap 18 (10-20) 01/31/18 10:25 BUN 35 mg/dL (9-20) H 01/31/18 10:25 Creatinine 2.9 mg/dL (0.8-1.5) H 01/31/18 10:25 Est GFR ( Amer) 26 01/31/18 10:25 Est GFR (Non-Af Amer) 22 01/31/18 10:25 POC Glucose (mg/dL) 146 mg/dL (65-110) H 02/03/18 16:06 Random Glucose 137 mg/dL (75-110) H 01/31/18 10:25 Calcium 9.4 mg/dl (8.6-10.4) 01/31/18 10:25 Phosphorus 4.4 mg/dL (2.5-4.5) 01/31/18 10:25 Magnesium 2.4 mg/dL (1.6-2.3) H 01/31/18 10:25 Total Bilirubin 1.1 mg/dL (0.2-1.3) 01/31/18 10:25 AST 27 U/L (17-59) 01/31/18 10:25 ALT 27 U/L (21-72) 01/31/18 10:25 Alkaline Phosphatase 120 U/L (38-126) 01/31/18 10:25 Troponin I 0.0410 ng/mL (0.00-0.120) 01/31/18 10:25 NT-Pro-B Natriuret Pep 2120 pg/mL (0-900) H 01/31/18 10:25 Total Protein 7.9 g/dL (6.3-8.3) 01/31/18 10:25 Albumin 4.5 g/dL (3.5-5.0) 01/31/18 10:25 Globulin 3.5 gm/dL (2.2-3.9) 01/31/18 10:25 Albumin/Globulin Ratio 1.3 (1.0-2.1) 01/31/18 10:25 Venous Blood Potassium 2.8 mmol/L (3.6-5.2) L 01/31/18 10:36 Urine Color Yellow (YELLOW) 01/31/18 11:58 Urine Clarity Hazy (Clear) 01/31/18 11:58 Urine pH 5.0 (5.0-8.0) 01/31/18 11:58 Ur Specific [place] 1.009 (1.003-1.030) 01/31/18 11:58 Urine Protein Negative mg/dL (NEGATIVE) 01/31/18 11:58 Urine Glucose (UA) Normal mg/dL (Normal) 01/31/18 11:58 Urine Ketones Negative mg/dL (NEGATIVE) 01/31/18 11:58 Urine Blood Negative (NEGATIVE) 01/31/18 11:58 Urine Nitrate Negative (NEGATIVE) 01/31/18 11:58 Urine Bilirubin Negative (NEGATIVE) 01/31/18 11:58 Urine Urobilinogen Normal mg/dL (0.2-1.0) 01/31/18 11:58 Ur Leukocyte Esterase Neg Joy/uL (Negative) 01/31/18 11:58 Urine WBC (Auto) 1 /hpf (0-5) 01/31/18 11:58 Urine RBC (Auto) 2 /hpf (0-3) 01/31/18 11:58 Ur Squamous Epith Cells 1 /hpf (0-5) 01/31/18 11:58 Hyaline Casts 3-5 /lpf (0-2) H 01/31/18 11:58 Influenza Typ A,B (EIA) Negative for flu a/b (NEGATIVE) 01/31/18 10:25 - Hospital Course Hospital Course: This is a 68 year old male with a history of CHF, dilated cardiomypoathy, ICD, Type 2 diabetes, and chronic kidney disease. He came on 01/31 with the chief complaint of coughing, intermittent fevers and body aches for about one week. He was supposed to see his primary physician that day but felt to ill and so came to the ER. On imaging, CT he was found to have what appears to be bilateral patchy infiltrates as well as a noted 7mm nodule. The CT also suggested there was a lot of emphesamtous changes as well. Review of documentation shows the patient's physician wanted to get a pulmonary evaluation and additional lab work and testing due to concerns for malignancy - however the patient did NOT want this done. Aztreonam was started and the patient is on diuretics. The hospitalist service took over care of patient on 02/02 as the primary physician was temporarily away. The patient AGAIN reiterated to me that he did not want further work up and that he did NOT want lab work done. On the day of 02/02 he had family member present at bedside who urged him to have lab work but he was skeptical of lab work We explained to the patient that some of the medications he was on can very likely affect his chem7 and CBC, but he told us he did not see the value in this despite being on medications such as Xarelto and Amiodraone and Bumex for his cardiac medical history. The next day he again declined the lab work. He was firm about this - however polite. Today 02/04/2018 he is actively walking outside in the hallway out of his room. He denied chest pain, denied shortness of breath, denied fevers. He insisted on going home. There is a PCN allergy, per review of previous admissions he has had Cipro before so we will send home with Cipro I encouraged him to please follow up with his physician and explained to him that while he felt ok now that he needed to allow for blood work. Possibly he is depressed about the CT scan findings, however when I talk to him he is AAOx3 and very stoic in nature. thank you Tony Jauregui Discharge Exam - Head Exam Head Exam: ATRAUMATIC, NORMAL INSPECTION, NORMOCEPHALIC - Eye Exam Eye Exam: EOMI, Normal appearance Pupil Exam: NORMAL ACCOMODATION - Respiratory Exam Respiratory Exam: Clear to PA & Lateral, NORMAL BREATHING PATTERN, UNREMARKABLE - GI/Abdominal Exam GI & Abdominal Exam: Normal Bowel Sounds. absent: Distended, Firm, Guarding - Neurological Exam Neurological exam: Alert, CN II-XII Intact, Normal Gait, Oriented x3 Additional comments: He is fully competent and besides insisting on no lab work or additional testing - he answers everything appropiately - Psychiatric Exam Psychiatric exam: Normal Affect, Normal Mood - Skin Skin Exam: Normal Color, Warm Discharge Plan - Discharge Medications Prescriptions: Ciprofloxacin [Cipro] 250 mg PO BID #14 tab Levothyroxine [Synthroid] 50 mcg PO DAILY #30 tab Pantoprazole [Protonix EC Tab] 40 mg PO HS #30 ect Rivaroxaban [Xarelto] 15 mg PO HS #30 tab Spironolactone [Aldactone] 25 mg PO DAILY #30 tab Torsemide 20 mg PO BID #60 tablet - Follow Up Plan Condition: FAIR Disposition: HOME/ ROUTINE
--- NOTE | 2018-02-07 20:10 | CARD ---
APPROVED REPORT Date of service: 01/31/2018 EKG Measurement Heart [id number] <Conclusion> Normal sinus rhythm Cannot rule out Anterior infarct, age undetermined Abnormal ECG
== END 2018-02-04 14:00 | disposition home or self-care (01) ==
LOC: C.ER 09:42 → INTOOBSV 12:52 → C.9E 12:52 → C.3T 14:12
PROVIDERS: ADMIT Internal Medicine; ATTEND Internal Medicine
DX: J44.0 Chronic obstructive pulmonary disease with (acute) lower respiratory infection (principal); J18.9 Pneumonia, unspecified organism; I13.0 Hypertensive heart and chronic kidney disease with heart failure and stage 1 through stage 4 chronic kidney disease, or unspecified chronic kidney disease; I50.40 Unspecified combined systolic (congestive) and diastolic (congestive) heart failure; I42.0 Dilated cardiomyopathy; R91.1 Solitary pulmonary nodule; D72.829 Elevated white blood cell count, unspecified; I48.91 Unspecified atrial fibrillation; E11.22 Type 2 diabetes mellitus with diabetic chronic kidney disease; N18.3 Chronic kidney disease, stage 3 (moderate); E03.9 Hypothyroidism, unspecified; Z95.810 Presence of automatic (implantable) cardiac defibrillator; Z87.891 Personal history of nicotine dependence; Z88.0 Allergy status to penicillin
CPT/HCPCS: 71045; 71250; 80053; 81001; 82803; 82948; 83735; 83880; 84100; 84484; 85025; 87040; 87804; 93005; 94640; 96361; 96365; 99285; G0378; J0744; J1940; J7030

== ENCOUNTER 2018-03-28 15:03 | Inpatient (IN) | payer MEDICARE, OTHER ==
[2018-03-28 15:04] VITALS: PULSE 87
[2018-03-28 17:17] LABS: BASO # 0.1 K/uL (0.0-0.2); BASO % 0.8 % (0.0-2.0); EOS # 0.4 K/uL (0.0-0.7); LYMPH # 1.6 K/uL (1.0-4.3); LYMPH % 14.1 % (20.0-40.0); MEAN CORPUSCULAR HEMOGLOBIN 30.1 pg (27.0-31.0); MEAN CORPUSCULAR HGB CONC 33.4 g/dL (33.0-37.0); MEAN PLATELET VOLUME 8.9 fL (7.2-11.7); MONO % 8.8 % (0.0-10.0); NEUT % 72.3 % (50.0-75.0); RBC 4.65 Mil/uL (4.40-5.90); RED CELL DISTRIBUTION WIDTH 15.2 % (11.5-14.5); WHITE BLOOD COUNT 11.1 K/uL (4.8-10.8)
[2018-03-28 17:23] LABS: MEAN CELL VOLUME 90.3 fL (80.0-94.0)
[2018-03-28 17:30] LABS: ALB/GLOB RATIO 1.3 (1.0-2.1); ALBUMIN 3.7 g/dL (3.5-5.0); ALT/SGPT 56 U/L (21-72); AST/SGOT 32 U/L (17-59); BLOOD UREA NITROGEN 20 mg/dL (9-20); CALCIUM 8.8 mg/dl (8.6-10.4); GFR NON-AFRICAN AMERICAN 50; LIPASE 41 U/L (23-300)
[2018-03-28 17:32] LABS: INR 1.4; PROTHROMBIN TIME 15.3 SECONDS (9.7-12.2)
--- NOTE | 2018-03-28 17:41 | RAD ---
Date of service: 03/28/2018 HISTORY: Dyspnea COMPARISON: Comparison made with prior study 01/31/2018. FINDINGS: LUNGS: Hazy appearance of the right lung base possibly positional however the possibility of small layering effusion not excluded. Suspect minor bibasilar atelectasis as well. PLEURA: No significant pleural effusion identified, no pneumothorax apparent. CARDIOVASCULAR: Mild aortic atherosclerotic calcification present. Heart size is mildly enlarged.. Single lead pacemaker/defibrillator unchanged. No pulmonary vascular congestion. OSSEOUS STRUCTURES: No significant abnormalities. VISUALIZED UPPER ABDOMEN: Normal. OTHER FINDINGS: None. IMPRESSION: Hazy appearance of the right lung base possibly positional however the possibility of small layering effusion not excluded. Suspect minor bibasilar atelectasis as well.
[2018-03-28 17:42] LABS: B-TYPE NATRIURETIC PEPTIDE 4000 pg/mL (0-900); CK-MB 1.67 ng/mL (0.0-3.38)
--- NOTE | 2018-03-28 18:02 | C.PDOC ---
History Of Present Illness 68 y/o M c PMHx HTN, Afib, pacemaker, CHF, COPD p/w dyspnea x 3 days, states can not sleep at night due to the dyspnea. He denies chest pain or palpitations. Time Seen by Provider: 03/28/18 15:45 Chief Complaint (Nursing): Shortness Of Breath Past Medical History Vital Signs: Last Vital Signs Temp 97.8 F 03/28/18 15:20 Pulse 111 H 03/28/18 15:49 Resp 32 H 03/28/18 15:49 BP 119/68 03/28/18 15:49 Pulse Ox 96 03/28/18 15:49 - Medical History PMH: Asthma, Atrial Fibrillation, CHF, COPD, HTN Denies: Chronic Kidney Disease Surgical History: Pacemaker (15 yrs ago) - [facility] Procedures ASSISTANCE WITH RESPIRATORY VENTILATION, 24-96 HRS, CPAP (11/21/17) Family History: States: No Known Family Hx - Social History Hx Alcohol Use: No Hx Substance Use: No - Immunization History Hx Tetanus Toxoid Vaccination: No Hx Influenza Vaccination: No Hx Pneumococcal Vaccination: No Review Of Systems Except As Marked, All Systems Reviewed And Found Negative. Constitutional: Negative for: Fever Cardiovascular: Negative for: Chest Pain Physical Exam - Physical Exam Additional Physical Exam Comments: Constitutional: No acute distress. Head: Normocephalic. Atraumatic. Eyes: PERRL. ENT: Moist mucous membranes. Neck: Supple. Cardiovascular: Regular rate. Tachycardic. Radial pulse 2+ bilaterally. Chest: No tenderness. Respiratory: Bibasilar crackles. Tachypneic. GI: Soft. Nontender. Nondistended. Back: No CVA tenderness. Musculoskeletal: No tenderness or swelling of extremities. Skin: No rash. Neurologic: Alert, no focal deficit. ED Course And Treatment - Laboratory Results Result Diagrams: 03/28/18 17:12 03/28/18 17:12 O2 Sat by Pulse Oximetry: 96 Medical Decision Making Medical Decision Making: Chest X-Ray: IMPRESSION: Hazy appearance of the right lung base possibly positional however the possibility of small layering effusion not excluded. Suspect minor bibasilar atelectasis as well. Patient with elevated proBNP, requires diuresis. Dr. Monson accepts patient to his service. Disposition - Disposition Disposition: HOSPITALIZED Disposition Time: 18:00 Condition: GUARDED - Clinical Impression Clinical Impression: CHF exacerbation
[2018-03-28] MEDS ORDERED: Albuterol-Ipratrop 3 mg / 0.5 (3 ml) UD INH PRN (19:39)
[2018-03-28] MEDS ORDERED: Dextrose 50% SYRINGE Inj (50 ml) IV PRN (19:48)
[2018-03-28] MEDS ORDERED: Glucagon Recombinant 1 mg Inj IM PRN (19:48)
[2018-03-28] MEDS: Albuterol-Ipratrop 3 mg / 0.5 (3 ml) UD INH SCH ×2 (20:14→23:52)
[2018-03-28] MEDS: (Lantus) Insulin Glargine, Recombinant SC SCH (21:46)
[2018-03-28] MEDS: (Novolin R) Insulin Human Regular 100 units/ml vial SC SCH (21:47)
[2018-03-29] MEDS: Albuterol-Ipratrop 3 mg / 0.5 (3 ml) UD INH SCH ×5 (03:07→19:52)
[2018-03-29] MEDS: Levothyroxine 50 MCG TAB PO SCH (05:51)
[2018-03-29] MEDS: (Novolin R) Insulin Human Regular 100 units/ml vial SC SCH ×4 (08:21→21:32)
--- NOTE | 2018-03-29 17:38 | CP.PCM.CON ---
History of Present Illness - History of Present Illness History of Present Illness: Patient 68 yo, with history of hypertension, nmr-awxbinu-sdjboenmv diabetes, chronic renal insufficiency, ex-smoker, as severe COPD, a nonischemic dilated cardiomyopathy diagnosed in 2004, congestive heart failure, status post [employer] single-chamber AICD implanted in 2004 with a riata lead, generator change in 2013. Patient does get short of breath on exertion. Patient has had multiple hospitalizations because of shortness of breath. He is now admitted again for dyspnea and abdominal fullness. In December 2016, Holter monitor showed atrial fibrillation with rapid ventricular rates. Patient's LFTs were normal. TSH was mildly elevated. Creatinine was 1.98 and patient was started on amiodarone 200 mg p.o. twice daily, currently on 100 mg p.o. once a day April 2017, TSH was mildly elevated. Chest x-ray in July 2017 was normal. Liver function tests in August 2017 were normal Patient was on an entresto, however because of insurance reasons on 10/27 it was changed to valsartan, then losartan in the hospital. Pt was admitted to this summer 2017, initial ECG showed afib, then nsr. Amio increased back to 200 a day. CXR only slight congestion, but pt was treated for pneumonia. Pt c/o severe abdominal pain, that was actually his chief complaint, but CT did not show ascites or mass. A vascular mesenteric doppler showed reduced. Flow in one artery, but the the other two were good and Dr Alonzo saw patient, and no intervention was advised. A chest ct performed in 01/2018 demonstrated patchy nodular infiltrates. CXR this admission revealed mild non specific findings. CR is normal, ecg shows NSR with a prolonged QT. BNP is chronically elevated, but there is no chf on cxr. Review of Systems - Review of Systems All systems: reviewed and no additional remarkable complaints except (as above.) Past Patient History - Infectious Disease Hx of Infectious Diseases: None - Past Medical History & Family History Past Medical History?: Yes - Past Social History Smoking Status: Former Smoker - CARDIAC Hx Cardiac Disorders: Yes Hx Atrial Fibrillation: Yes Hx Congestive Heart Failure: Yes Hx Hypertension: Yes Hx Pacemaker: Yes (15 yrs ago) - PULMONARY Hx Respiratory Disorders: Yes Hx Asthma: Yes Hx Chronic Obstructive Pulmonary Disease (COPD): Yes - NEUROLOGICAL Hx Neurological Disorder: No - HEENT Hx HEENT Problems: No - RENAL Hx Chronic Kidney Disease: No - ENDOCRINE/METABOLIC Hx Endocrine Disorders: Yes Hx Diabetes Mellitus Type 1: Yes - HEMATOLOGICAL/ONCOLOGICAL Hx Blood Disorders: No - INTEGUMENTARY Hx Dermatological Problems: No - MUSCULOSKELETAL/RHEUMATOLOGICAL Hx Musculoskeletal Disorders: No Hx Falls: No - GASTROINTESTINAL Hx Gastrointestinal Disorders: No - GENITOURINARY/GYNECOLOGICAL Hx Genitourinary Disorders: No - PSYCHIATRIC Hx Psychophysiologic Disorder: No Hx Substance Use: No - SURGICAL HISTORY Hx Surgeries: Yes Other/Comment: Pacemaker insertion 15 yrs ago - ANESTHESIA Hx Anesthesia: Yes Hx Anesthesia Reactions: No Hx Malignant Hyperthermia: No Meds Allergies/Adverse Reactions: Allergies Allergy/AdvReac Type Severity Reaction Status Date / Time Penicillins Allergy Verified 01/31/18 09:54 - Medications Medications: Current Medications Albuterol/Ipratropium (Duoneb 3 Mg/0.5 Mg (3 Ml) Ud) 3 ml INH RQ4 [facility] Last Admin: 03/29/18 13:01 Dose: 3 ml Amiodarone HCl (Cordarone) 200 mg PO DAILY [facility] Stop: 04/08/18 10:01 Last Admin: 03/29/18 09:15 Dose: 200 mg Apixaban (Eliquis) 2.5 mg PO BID [facility] Last Admin: 03/29/18 09:16 Dose: Not Given Bisoprolol Fumarate (Zebeta) 5 mg PO DAILY [facility] Stop: 04/08/18 10:01 Last Admin: 03/29/18 09:15 Dose: 5 mg Dextrose (Dextrose 50% Inj) 0 ml IV STAT PRN; Protocol PRN Reason: Hypoglycemia Protocol Dextrose (Glutose 15) 0 gm PO ONCE PRN; Protocol PRN Reason: Hypoglycemia Protocol Furosemide (Lasix) 40 mg IVP Q12H [facility] Stop: 03/30/18 23:59 Last Admin: 03/29/18 05:51 Dose: 40 mg Glucagon (Glucagen Diagnostic Kit) 0 mg IM STAT PRN; Protocol PRN Reason: Hypoglycemia Protocol Dextrose (Dextrose 5% In Water 1000 Ml) 1,000 mls @ 0 mls/hr IV .Q0M PRN; Protocol PRN Reason: Hypoglycemia Protocol Insulin Glargine (Lantus) 20 unit SC [facility] Last Admin: 03/28/18 21:46 Dose: 20 units Insulin Human Regular (Novolin R) 0 unit SC [facility]; Protocol Last Admin: 03/29/18 13:59 Dose: Not Given Levothyroxine Sodium (Synthroid) 50 mcg PO DAILY@0630 [facility] Last Admin: 03/29/18 05:51 Dose: 50 mcg Rosuvastatin Calcium (Crestor) 20 mg PO HS [facility] Last Admin: 03/28/18 21:46 Dose: 20 mg Spironolactone (Aldactone) 25 mg PO DAILY [facility] Last Admin: 03/29/18 09:15 Dose: 25 mg Physical Exam - Constitutional Appears: No Acute Distress - Head Exam Head Exam: ATRAUMATIC, NORMAL INSPECTION - Eye Exam Eye Exam: EOMI, Normal appearance - ENT Exam ENT Exam: Mucous Membranes Moist - Neck Exam Neck exam: Positive for: Normal Inspection - Respiratory Exam Respiratory Exam: Clear to Auscultation Bilateral - Cardiovascular Exam Cardiovascular Exam: REGULAR RHYTHM - GI/Abdominal Exam GI & Abdominal Exam: Normal Bowel Sounds - Extremities Exam Extremities exam: Positive for: normal inspection - Back Exam Back exam: NORMAL INSPECTION - Neurological Exam Neurological exam: Alert, CN II-XII Intact, Normal Gait - Psychiatric Exam Psychiatric exam: Normal Mood - Skin Skin Exam: Dry, Intact Results - Vital Signs Recent Vital Signs: Last Vital Signs Temp 97.0 F L 03/29/18 07:00 Pulse 81 03/29/18 11:38 Resp 20 03/29/18 07:00 BP 120/71 03/29/18 07:00 Pulse Ox 97 03/29/18 07:00 - Labs Result Diagrams: 03/28/18 17:12 03/28/18 17:12 Labs: Laboratory Results - last 24 hr 03/28/18 03/28/18 03/28/18 17:12 17:12 17:12 WBC 11.1 H RBC 4.65 Hgb 14.0 Hct 42.0 MCV 90.3 D MCH 30.1 MCHC 33.4 RDW 15.2 H Plt Count 222 MPV 8.9 Neut % (Auto) 72.3 Lymph % (Auto) 14.1 L [place] % (Auto) 8.8 Eos % (Auto) 4.0 Baso % (Auto) 0.8 Neut # (Auto) 8.0 H Lymph # (Auto) 1.6 [place] # (Auto) 1.0 H Eos # (Auto) 0.4 Baso # (Auto) 0.1 PT 15.3 H INR 1.4 APTT 42 H Sodium 136 Potassium 3.8 Chloride 98 Carbon Dioxide 27 Anion Gap 15 BUN 20 Creatinine 1.4 Est GFR ( Amer) > 60 Est GFR (Non-Af Amer) 50 POC Glucose (mg/dL) Random Glucose 85 Calcium 8.8 Total Bilirubin 0.8 AST 32 ALT 56 Alkaline Phosphatase 118 Total Creatine Kinase 109 CK-MB (Mass) 1.67 Troponin I 0.0210 NT-Pro-B Natriuret Pep 4000 H Total Protein 6.6 Albumin 3.7 Globulin 2.9 Albumin/Globulin Ratio 1.3 Lipase 41 03/28/18 03/29/18 03/29/18 21:35 06:08 12:18 WBC RBC Hgb Hct MCV MCH MCHC RDW Plt Count MPV Neut % (Auto) Lymph % (Auto) [place] % (Auto) Eos % (Auto) Baso % (Auto) Neut # (Auto) Lymph # (Auto) [place] # (Auto) Eos # (Auto) Baso # (Auto) PT INR APTT Sodium Potassium Chloride Carbon Dioxide Anion Gap BUN Creatinine Est GFR ( Amer) Est GFR (Non-Af Amer) POC Glucose (mg/dL) 159 H 114 H 122 H Random Glucose Calcium Total Bilirubin AST ALT Alkaline Phosphatase Total Creatine Kinase CK-MB (Mass) Troponin I NT-Pro-B Natriuret Pep Total Protein Albumin Globulin Albumin/Globulin Ratio Lipase - EKG Data EKG Interpreted by: Myself EKG shows normal: Sinus rhythm (as read by me and in hpi) Assessment & Plan - Assessment and Plan (Free Text) Assessment: 1. Dyspnea: pt has well compensated cardiomyopathy and not in chf. With Chest ct from 01/2018, I a concerned about amiodarone toxicity. A repeat cxr is advised, will lower amio to 100 a day. I will resume losartan and follow cr, k. if losartan not used pt will need after load reduction with hydralazine and nitrates as alternative. I amiodarone toxicity is a consideration, then it will have to be stopped. Will compare this ct with the one from january.
--- NOTE | 2018-03-29 21:15 | PQF ---
PROVIDER RESPONSE TEXT: Acute on Chronic Systolic CHF REVIEWER QUERY TEXT: CHF Acuity and Type Congestive Heart Failure is documented in the Medical Record. Please document the type and acuity (in cludes probable or suspected) Such as: Type: -- Systolic -- Diastolic -- Combined -- Other, please specify Acuity: -- Acute -- Chronic -- Acute on chronic -- Other, please specify Also please document the underlying cause of the CHF (includes probable or suspected) The patient's Clinical Indicators include: Clinical Indicator: 68 M, SOB, cxr: Hazy appearance of the right lung base possibly positional howev er the possibility of small layering effusion not excluded, foia=4000, echo: EF=27%, hypokinesis LV, Dx: CHF, Exacerbation Risk Factor: HTN, Afib, pacemaker, CHF,Dilated CM, CKD Meds: amiodarone, furosemide Query created by: Shivani Rubio on 03/28/2018 9:01 PM Electronically signed by: Carlos Monson MD 03/29/2018 9:13 PM
[2018-03-29] MEDS: (Lantus) Insulin Glargine, Recombinant SC SCH (21:46)
[2018-03-30] MEDS: Albuterol-Ipratrop 3 mg / 0.5 (3 ml) UD INH SCH ×6 (00:20→19:39)
--- NOTE | 2018-03-30 00:32 | HP ---
HISTORY OF PRESENT ILLNESS: The patient is a 68-year-old male with history of multiple medical problems including congestive heart failure, status post ICD and pacemaker placement. The patient presented to emergency room with symptoms of shortness of breath and wheezing. The patient was evaluated in the emergency room and found to have acute exacerbation of congestive heart failure. Subsequently, the patient was admitted for further management after started on diuretics. REVIEW OF SYSTEMS: Other review of systems is negative. ALLERGIES: THERE IS ALLERGY TO PENICILLIN. MEDICATIONS: As per MAR were reviewed and ordered. PAST MEDICAL HISTORY: CHF, COPD, hypertension, type 2 diabetes mellitus, chronic kidney disease. FAMILY HISTORY: Noncontributory. SOCIAL HISTORY: Ex-smoker. No EtOH or substance abuse. PHYSICAL EXAMINATION: GENERAL: The patient is in bed, not in any cardiopulmonary distress. VITAL SIGNS: Blood pressure 120/74, temperature 97.8, respiratory rate 20, and pulse 79. HEENT: Pupils equal, reactive to light. Normal appearing mucosa of the conjunctivae, oropharynx, and nasal membrane mucosa. NECK: Supple. No JVD. No carotid bruit. No lymph node. No thyromegaly. CHEST AND LUNGS: Bilateral symmetrical expansion. Scattered rhonchi all over lung kebede. CARDIOVASCULAR SYSTEM: PMI not localized. S1, S2. No additional sounds. ABDOMEN: Normoactive bowel sounds. No tenderness. No organomegaly. No masses. EXTREMITIES: No cyanosis, no edema. MANAGEMENT REP: Alert, awake, oriented x2. No neurological deficits could be appreciated. ASSESSMENT: 1. Exacerbation of congestive heart failure with bronchospasm and increased proBNP to 4000. 2. Type 2 diabetes mellitus with hyperglycemia. 3. Chronic kidney disease. 4. Hypertension. 5. Exacerbation of chronic obstructive pulmonary disease. PLAN: We will give the patient bronchodilator and we will give renal dose of Eliquis and Cardiology consult and follow recommendations. Carlos Monson MD
[2018-03-30] MEDS: Levothyroxine 50 MCG TAB PO SCH (05:46)
[2018-03-30] MEDS: (Novolin R) Insulin Human Regular 100 units/ml vial SC SCH ×4 (08:20→22:27)
--- NOTE | 2018-03-30 11:13 | CT ---
Date of service: 03/30/2018 PROCEDURE: CT Chest without contrast HISTORY: dyspnea, amiodarone, compare with previous 02/01 COMPARISON: 02/01/2018 TECHNIQUE: Contiguous axial images were obtained through the chest without intravenous contrast enhancement. Sagittal and coronal reconstructions were performed. Radiation dose: Total exam DLP = 556.94 mGy-cm. This CT exam was performed using one or more of the following dose reduction techniques: Automated exposure control, adjustment of the mA and/or kV according to patient size, and/or use of iterative reconstruction technique. FINDINGS: LUNGS: Stable opacities predominating in the right upper lobe and right lower lobe, measuring up to 1.2 centimeters in the right upper lobe. Mild lingular fibrosis/discoid atelectasis MEDIASTINUM: Unremarkable thoracic aorta. No aneurysm. Cardiomegaly. Main pulmonary artery unremarkable. No vascular congestion. No lymphadenopathy. Aortic calcifications. PLEURA: Small to moderate bilateral pleural effusions. BONES: No fracture. No destructive lesion. UPPER ABDOMEN: Grossly unremarkable. OTHER FINDINGS: None. IMPRESSION: Stable opacities predominating in the right upper lobe and right lower lobe, measuring up to 1.2 centimeters in the right upper lobe. Mild lingular fibrosis/discoid atelectasis Small to moderate bilateral pleural effusions.
--- NOTE | 2018-03-30 13:01 | CP.PCM.PN ---
Subjective - Date & Time of Evaluation Date of Evaluation: 03/30/18 Time of Evaluation: 12:58 - Subjective Subjective: Pt feels the same. Chest showed stable lung opacities. bilateral effusions. Objective - Vital Signs/Intake and Output Vital Signs (last 24 hours): Temp Pulse Resp BP Pulse Ox 97.9 F 75 20 121/74 99 03/30/18 07:00 03/30/18 12:29 03/30/18 07:00 03/30/18 07:00 03/30/18 07:00 Intake and Output: 03/30/18 03/30/18 06:59 18:59 Intake Total 300 Balance 300 - Medications Medications: Current Medications Albuterol/Ipratropium (Duoneb 3 Mg/0.5 Mg (3 Ml) Ud) 3 ml INH RQ4 [facility] Last Admin: 03/30/18 11:15 Dose: 3 ml Amiodarone HCl (Cordarone) 100 mg PO DAILY [facility] Last Admin: 03/30/18 10:44 Dose: 100 mg Apixaban (Eliquis) 2.5 mg PO BID [facility] Last Admin: 03/30/18 10:43 Dose: 2.5 mg Bisoprolol Fumarate (Zebeta) 5 mg PO DAILY [facility] Stop: 04/08/18 10:01 Last Admin: 03/30/18 10:44 Dose: 5 mg Dextrose (Dextrose 50% Inj) 0 ml IV STAT PRN; Protocol PRN Reason: Hypoglycemia Protocol Dextrose (Glutose 15) 0 gm PO ONCE PRN; Protocol PRN Reason: Hypoglycemia Protocol Furosemide (Lasix) 40 mg IVP Q12H [facility] Stop: 03/30/18 23:59 Last Admin: 03/30/18 05:45 Dose: 40 mg Glucagon (Glucagen Diagnostic Kit) 0 mg IM STAT PRN; Protocol PRN Reason: Hypoglycemia Protocol Dextrose (Dextrose 5% In Water 1000 Ml) 1,000 mls @ 0 mls/hr IV .Q0M PRN; Protocol PRN Reason: Hypoglycemia Protocol Insulin Glargine (Lantus) 20 unit SC HS [facility] Last Admin: 03/29/18 21:46 Dose: 20 units Insulin Human Regular (Novolin R) 0 unit SC [facility]; Protocol Last Admin: 03/30/18 08:20 Dose: Not Given Levothyroxine Sodium (Synthroid) 50 mcg PO DAILY@0630 [facility] Last Admin: 03/30/18 05:46 Dose: 50 mcg Losartan Potassium (Cozaar) 50 mg PO DAILY [facility] Last Admin: 03/30/18 10:43 Dose: 50 mg Rosuvastatin Calcium (Crestor) 20 mg PO HS [facility] Last Admin: 03/29/18 21:46 Dose: 20 mg Spironolactone (Aldactone) 25 mg PO DAILY [facility] Last Admin: 03/30/18 10:43 Dose: 25 mg - Labs Labs: 03/28/18 17:12 03/28/18 17:12 PT 15.3 SECONDS (9.7-12.2) H 03/28/18 17:12 INR 1.4 03/28/18 17:12 APTT 42 SECONDS (21-34) H 03/28/18 17:12 - Constitutional Appears: No Acute Distress - Head Exam Head Exam: ATRAUMATIC - Eye Exam Eye Exam: EOMI - ENT Exam ENT Exam: Mucous Membranes Moist - Neck Exam Neck Exam: Full ROM - Respiratory Exam Respiratory Exam: Clear to Ausculation Bilateral - Cardiovascular Exam Cardiovascular Exam: REGULAR RHYTHM - GI/Abdominal Exam GI & Abdominal Exam: Soft, Normal Bowel Sounds - Exam External exam: NORMAL EXTERNAL EXAM - Extremities Exam Extremities Exam: Full ROM - Back Exam Back Exam: NORMAL INSPECTION - Neurological Exam Neurological Exam: Awake, Normal Gait, Oriented x3 - Psychiatric Exam Psychiatric exam: Normal Affect, Normal Mood Assessment and Plan - Assessment and Plan (Free Text) Assessment: 1. Bilateral effusions are likely chronic, given patents severe LV dysfunction. He has not really improved despite IV duriesis, he is on appropriate meds. Entesto was denied by insurance. 2. Unclear etiology of chronic densities: Await pulmonary input. 3. NSR, no afib.
[2018-03-30] MEDS ORDERED: Alum-Mag Hydrox-Simethicone Susp (30 mL) PO PRN (13:54)
[2018-03-30] MEDS: (Lantus) Insulin Glargine, Recombinant SC SCH (22:27)
[2018-03-31] MEDS: Albuterol-Ipratrop 3 mg / 0.5 (3 ml) UD INH SCH ×6 (00:56→20:32)
[2018-03-31] MEDS: Levothyroxine 50 MCG TAB PO SCH (05:57)
[2018-03-31 06:51] LABS: BLOOD UREA NITROGEN 19 mg/dL (9-20); CALCIUM 7.8 mg/dl (8.6-10.4); GFR NON-AFRICAN AMERICAN 60
[2018-03-31] MEDS: (Novolin R) Insulin Human Regular 100 units/ml vial SC SCH ×4 (07:37→21:18)
[2018-03-31] MEDS ORDERED: Potassium Chloride 20 mEq/15 ml LIQ UD PO ONE ×2 (10:58→11:00)
[2018-03-31] MEDS ORDERED: Potassium Chloride 20 mEq ER Tab PO ONE (11:00)
[2018-03-31] MEDS ORDERED: Iohexol 240 (50 ml) PO ONE (16:30)
[2018-03-31] MEDS: Simethicone 80 mg Chewtab PO PRN (17:46)
[2018-03-31] MEDS: (Lantus) Insulin Glargine, Recombinant SC SCH (21:30)
[2018-04-01] MEDS: Albuterol-Ipratrop 3 mg / 0.5 (3 ml) UD INH SCH ×7 (00:30→21:14)
--- NOTE | 2018-04-01 00:58 | PN ---
DATE: 03/30/2018 SUBJECTIVE: He was not in any cardiopulmonary distress. The patient is still complaining of abdominal distention and nonspecific abdominal pain. PHYSICAL EXAMINATION VITAL SIGNS: Blood pressure 111/67, temperature 97.6, respiratory rate 20 and pulse 71. HEENT: Pupils equal and reactive to light. Normal-appearing mucosa of the conjunctivae, oropharynx and nasal membrane mucosa. NECK: Supple. No JVD. No carotid bruit. No lymph node. No thyromegaly. CHEST AND LUNGS: Bilateral symmetrical expansion. Good air exchange. No rales, no rhonchi. CARDIOVASCULAR SYSTEM: PMI not localized. S1, S2. No additional sounds. ABDOMEN: Slightly distended but positive bowel sounds. No organomegaly. No masses. EXTREMITIES: No cyanosis, no clubbing, no edema. CENTRAL NERVOUS SYSTEM: Alert, awake, oriented x2. No neurological deficit could be appreciated. CAT scan of chest done showed stable pulmonary opacities. ASSESSMENT: 1. Drnlm-dx-yizzize congestive heart failure, status post implantable cardioverter-defibrillator placement and pacemaker. 2. Type 2 diabetes mellitus. 3. Chronic kidney disease. 4. Hypertension. 5. Nonspecific abdominal pain with mild distention. PLAN: We will order Mylanta 80 mg twice a day p.r.n. Continue current medications including IV Lasix. Monitor electrolytes. Carlos Monson MD
--- NOTE | 2018-04-01 01:12 | PN ---
DATE: 03/31/2018 SUBJECTIVE: He is not in any cardiopulmonary distress. PHYSICAL EXAMINATION VITAL SIGNS: Blood pressure 100/62, temperature 98, respiratory rate 20 and pulse 71. HEENT: Pupils equal and reactive to light. Normal-appearing mucosa of the conjunctivae, oropharynx and nasal membrane mucosa. NECK: Supple. No JVD. No carotid bruit. No lymph node. No thyromegaly. CHEST AND LUNGS: Bilateral symmetrical expansion. Good air exchange. No rales, no rhonchi. CARDIOVASCULAR SYSTEM: PMI not localized. S1, S2. No additional sounds. ABDOMEN: Normoactive bowel sounds. No tenderness. No organomegaly. No masses. EXTREMITIES: No cyanosis, no clubbing, no edema. CENTRAL NERVOUS SYSTEM: Alert, awake, oriented x2. No neurological deficit could be appreciated. ASSESSMENT: 1. Mpfak-ac-hbmqgyn congestive heart failure, systolic and diastolic. 2. Nonspecific abdominal pain. 3. Type 2 diabetes mellitus. 4. Hypertension. PLAN: Continue current medications. We will do CAT scan of the abdomen and pelvis with p.o. contrast. Continue Mylanta and Accu-Cheks with insulin coverage. Continue IV diuretics. We will supplement the patient also with potassium today as potassium fell to 3.4. Carlos Monson MD
[2018-04-01] MEDS: Levothyroxine 50 MCG TAB PO SCH (05:43)
[2018-04-01] MEDS: Simethicone 80 mg Chewtab PO PRN ×2 (06:00→21:14)
[2018-04-01] MEDS: (Novolin R) Insulin Human Regular 100 units/ml vial SC SCH ×4 (08:21→21:54)
--- NOTE | 2018-04-01 08:31 | CT ---
Date of service: 03/31/2018 PROCEDURE: CT Abdomen and Pelvis with Oral contrast. HISTORY: ABD DISTENDED COMPARISON: Comparison is made with 01/01/2018 TECHNIQUE: Contiguous axial images of the abdomen and pelvis. Oral contrast was administered. No IV contrast given. Coronal and Sagittal reformats generated. Radiation dose: Total exam DLP = 565.86 mGy-cm. This CT exam was performed using one or more of the following dose reduction techniques: Automated exposure control, adjustment of the mA and/or kV according to patient size, and/or use of iterative reconstruction technique. FINDINGS: LOWER THORAX: There is round shape low-attenuation fluid collection at the left lower chest may represent localized pleural effusion. There is a small right pleural effusion. The heart is enlarged. Pacing wires seen extending to the heart. No evidence of pericardial effusion. There is ground-glass hazy nodule at the right lung lower lobe measures 9 millimeter again noted. LIVER: No evidence of acute pathology or suspicious mass in the liver. GALLBLADDER AND BILE DUCTS: Unremarkable. PANCREAS: Unremarkable. No mass. No ductal dilatation. SPLEEN: Unremarkable. No splenomegaly. ADRENALS: Unremarkable. KIDNEYS AND URETERS: Unremarkable. No stone or hydronephrosis. BLADDER: Vazd-qd-hlbevnom urinary bladder wall thickening is noted. REPRODUCTIVE: The prostate is mildly enlarged. APPENDIX: Unremarkable. BOWEL: Unremarkable. No obstruction. No gross mural thickening. PERITONEUM: Unremarkable. No fluid collection. No free air. LYMPH NODES: Unremarkable. No enlarged lymph nodes. VASCULATURE: Unremarkable. No aortic aneurysm. Diffuse atherosclerotic calcification noted in the abdominal aorta and iliac arteries. BONES: No fracture or destructive lesion. OTHER FINDINGS: None. IMPRESSION: No evidence of ascites. No evidence of high-grade bowel obstruction. Mild constipation. Mildly distended stomach. Suspicious for localized pleural effusion at left lower chest. Small right pleural effusion. Mildly enlarged prostate. Diffuse atherosclerotic calcification. Preliminary report was submitted by [facility] contains concordant findings.
[2018-04-01] MEDS: (Lantus) Insulin Glargine, Recombinant SC SCH (21:14)
--- NOTE | 2018-04-02 00:19 | PN ---
DATE: 04/01/2018 SUBJECTIVE: He is not in any cardiopulmonary distress, but he is still complaining of abdominal pain intermittently. A CAT scan was done that did not show any significant abnormality with p.o. contrast. PHYSICAL EXAMINATION: VITAL SIGNS: Blood pressure 99/62, temperature 97.8, respiratory rate 20, and pulse 71. HEENT: Pupils equal, reactive to light. Normal-appearing mucosa of the conjunctivae, oropharynx, and nasal membrane mucosa. NECK: Supple. No JVD. No carotid bruit. No lymph node. No thyromegaly. CHEST AND LUNGS: Bilateral symmetrical expansion. Good air exchange. No rales, no rhonchi. CARDIOVASCULAR SYSTEM: PMI not localized. S1, S2. No additional sounds. ABDOMEN: Normoactive bowel sounds. No tenderness. No organomegaly. No masses. EXTREMITIES: No cyanosis, no clubbing, no edema. CENTRAL NERVOUS SYSTEM: Alert, awake, oriented x2. No neurological deficit could be appreciated. ASSESSMENT: Acute on chronic congestive heart failure, both systolic and diastolic; nonspecific abdominal pain, likely irritable bowel syndrome; hypertension; type 2 diabetes mellitus. PLAN: We will give the patient Bentyl 10 mg twice a day for the abdominal pain. Continue current treatment and Accu-Cheks with insulin coverage as needed. Also, we will do blood work and monitor electrolytes and if the patient is stable, will discharge tomorrow. Carlos Monson MD
[2018-04-02] MEDS: Albuterol-Ipratrop 3 mg / 0.5 (3 ml) UD INH SCH ×4 (00:30→11:09)
[2018-04-02] MEDS: Levothyroxine 50 MCG TAB PO SCH (05:50)
[2018-04-02 07:30] LABS: BLOOD UREA NITROGEN 25 mg/dL (9-20); CALCIUM 8.4 mg/dl (8.6-10.4); GFR NON-AFRICAN AMERICAN 50
[2018-04-02 07:34] VITALS: BP 135/67; PULSE 79; RESP 20; TEMP 97.9; O2SAT 96
[2018-04-02] MEDS: (Novolin R) Insulin Human Regular 100 units/ml vial SC SCH ×2 (07:39→11:47)
--- NOTE | 2018-04-02 09:42 | CP.PCM.PN ---
Subjective - Date & Time of Evaluation Date of Evaluation: 04/02/18 Time of Evaluation: 09:38 - Subjective Subjective: Pt feels better, tried bentyl today. CT of abdomen benign. Objective - Vital Signs/Intake and Output Vital Signs (last 24 hours): Temp Pulse Resp BP Pulse Ox 97.9 F 79 20 135/67 96 04/02/18 07:00 04/02/18 07:00 04/02/18 07:00 04/02/18 07:00 04/02/18 07:00 - Medications Medications: Current Medications Al Hydrox/Mg Hydrox/Simethicone (Maalox Plus 30 Ml) 30 ml PO BID PRN PRN Reason: Indigestion / Heartburn Albuterol/Ipratropium (Duoneb 3 Mg/0.5 Mg (3 Ml) Ud) 3 ml INH RQ4 [facility] Last Admin: 04/02/18 07:34 Dose: 3 ml Amiodarone HCl (Cordarone) 100 mg PO DAILY [facility] Last Admin: 04/02/18 09:10 Dose: 100 mg Apixaban (Eliquis) 2.5 mg PO BID [facility] Last Admin: 04/02/18 09:10 Dose: 2.5 mg Bisoprolol Fumarate (Zebeta) 5 mg PO DAILY [facility] Stop: 04/08/18 10:01 Last Admin: 04/02/18 09:10 Dose: 5 mg Dextrose (Dextrose 50% Inj) 0 ml IV STAT PRN; Protocol PRN Reason: Hypoglycemia Protocol Dextrose (Glutose 15) 0 gm PO ONCE PRN; Protocol PRN Reason: Hypoglycemia Protocol Dicyclomine HCl (Bentyl) 10 mg PO BID [facility] Last Admin: 04/02/18 09:12 Dose: 10 mg Furosemide (Lasix) 40 mg IVP Q12H [facility] Last Admin: 04/02/18 05:50 Dose: 40 mg Glucagon (Glucagen Diagnostic Kit) 0 mg IM STAT PRN; Protocol PRN Reason: Hypoglycemia Protocol Insulin Glargine (Lantus) 20 unit SC HS [facility] Last Admin: 04/01/18 21:14 Dose: 20 units Insulin Human Regular (Novolin R) 0 unit SC ACHS [facility]; Protocol Last Admin: 04/02/18 07:39 Dose: Not Given Levothyroxine Sodium (Synthroid) 50 mcg PO DAILY@0630 [facility] Last Admin: 04/02/18 05:50 Dose: 50 mcg Losartan Potassium (Cozaar) 50 mg PO DAILY [facility] Last Admin: 04/02/18 09:10 Dose: 50 mg Rosuvastatin Calcium (Crestor) 20 mg PO HS [facility] Last Admin: 04/01/18 21:14 Dose: 20 mg Simethicone (Mylicon Chew Tab) 80 mg PO BID PRN PRN Reason: GI distress Last Admin: 04/01/18 21:14 Dose: 80 mg Spironolactone (Aldactone) 25 mg PO DAILY [facility] Last Admin: 04/02/18 09:10 Dose: 25 mg - Labs Labs: 03/28/18 17:12 04/02/18 07:05 PT 15.3 SECONDS (9.7-12.2) H 03/28/18 17:12 INR 1.4 03/28/18 17:12 APTT 42 SECONDS (21-34) H 03/28/18 17:12 - Constitutional Appears: Well - Head Exam Head Exam: NORMAL INSPECTION - Eye Exam Eye Exam: EOMI - ENT Exam ENT Exam: Mucous Membranes Moist - Neck Exam Neck Exam: Full ROM - Respiratory Exam Respiratory Exam: Clear to Ausculation Bilateral - Cardiovascular Exam Cardiovascular Exam: REGULAR RHYTHM - Exam External exam: NORMAL EXTERNAL EXAM - Extremities Exam Extremities Exam: Full ROM, Normal Inspection - Neurological Exam Neurological Exam: Alert, Awake, CN II-XII Intact, Normal Gait, Oriented x3 - Psychiatric Exam Psychiatric exam: Normal Affect - Skin Skin Exam: Normal Color Assessment and Plan - Assessment and Plan (Free Text) Assessment: 1. Severe cardiomyopathy, chronic pleural effusions. Pt is on appropriate meds. He has chronic pulmonary nodules, not worse since 01/[address] Pt is on amiodarone, and there is a concern, but pt seems to have symptomatically improved with in hospital IV diuresis. Lungs have always been clear on exam. Will contine meds as ordered. Metolazone should be used only once or twice a week to avoid tachyphlayxis. Repeat lytes.
--- NOTE | 2018-04-02 12:07 | PCM.HF ---
Heart Failure Core Measure - Heart Failure Ejection Fraction: Less Than 40 % JYOTHI Inhibitor Prescribed: No Contraindication/Reason for not providing: on jyothi Beta-Jean Claude Prescribed: Bisoprolol Angiotensin II Receptor Jean Claude Prescribed: Yes Contraindication/Reason for not providing: ARF AnticoagulationTherapy for Atrial Fibrillation/Atrialflutter: Yes Aldosterone Antagonist Prescribed: Yes Hydralazine Nitrate Prescribed: No Contraindication/Reason for not providing: on amiodorone Implantable Cardioverter Defibrillator Therapy: No Contraindication/Reason for not providing: medical managemtn as per cardiology Cardiac Resynchronization Therapy Prescribed: No Contraindication/Reason for not providing: medical management - Follow up Will be discharged to: Home Follow Up Date (must be within 7 days from discharge): 04/06/18 Follow Up Time: 10:00
--- NOTE | 2018-04-02 17:39 | CARD ---
APPROVED REPORT Date of service: 03/29/2018 EKG Measurement Heart [id number] <Conclusion> Sinus rhythm with occasional premature ventricular complexes Nonspecific intraventricular conduction delay Borderline ECG
--- NOTE | 2018-04-03 15:12 | DS ---
REASON FOR ADMISSION: This is a 68-year-old male with history of multiple medical problems, was admitted through emergency room for acute exacerbation of congestive heart failure. COURSE OF HOSPITALIZATION: The patient was admitted to telemetry floor. The patient was started on IV diuresis to which he responded very well. The patient had a cardiology consultation done by Dr. Summers during this admission. The patient also had a CT scan of the chest, abdomen and pelvis that did not show significant abnormality. The chest was done due to follow-up previous opacification and showed stability. Also the abdomen and pelvis was done that showed no significant abnormality. The patient was discharged home after . To follow up with cardiology and primary care. FINAL DIAGNOSES: 1. Ekquk-ji-hcbnuof congestive heart failure, systolic and diastolic, status post implantable cardioverter defibrillator placement. 2. Type 2 diabetes mellitus with hyperglycemia. 3. Hypertension. 4. Chronic obstructive pulmonary disease. Delaney MD Ermias
== END 2018-04-02 13:36 | disposition home or self-care (01) | DRG 291 ==
LOC: C.ER 15:03 → C.6T 18:10
PROVIDERS: ADMIT Internal Medicine; ATTEND Internal Medicine
DX: I13.0 Hypertensive heart and chronic kidney disease with heart failure and stage 1 through stage 4 chronic kidney disease, or unspecified chronic kidney disease (principal); I50.43 Acute on chronic combined systolic (congestive) and diastolic (congestive) heart failure; J44.1 Chronic obstructive pulmonary disease with (acute) exacerbation; I42.0 Dilated cardiomyopathy; N18.9 Chronic kidney disease, unspecified; E11.22 Type 2 diabetes mellitus with diabetic chronic kidney disease; E11.65 Type 2 diabetes mellitus with hyperglycemia; Z79.84 Long term (current) use of oral hypoglycemic drugs; I48.91 Unspecified atrial fibrillation; K58.9 Irritable bowel syndrome, unspecified; Z79.4 Long term (current) use of insulin; Z87.891 Personal history of nicotine dependence; Z95.810 Presence of automatic (implantable) cardiac defibrillator

== ENCOUNTER 2018-04-27 17:59 | Outpatient (CLI) | payer MEDICARE, OTHER | END 2018-04-27 18:00 | disposition home or self-care (01) | LOC: C.SLEEP 18:00 | DX: G47.33 Obstructive sleep apnea (adult) (pediatric) (principal) ==

== ENCOUNTER 2018-05-05 23:23 | Observation (INO) | payer MEDICARE, OTHER ==
[2018-05-05 23:24] VITALS: PULSE 87
[2018-05-05] MEDS ORDERED: Albuterol-Ipratrop 3 mg / 0.5 (3 ml) UD ONE (23:33)
[2018-05-06 00:06] LABS: BASO # 0.1 K/uL (0.0-0.2); BASO % 0.5 % (0.0-2.0); EOS # 0.4 K/uL (0.0-0.7); EOS % 3.9 % (0.0-4.0); HEMOGLOBIN 14.1 g/dL (12.0-18.0); LYMPH # 1.1 K/uL (1.0-4.3); LYMPH % 10.9 % (20.0-40.0); MEAN CORPUSCULAR HEMOGLOBIN 28.9 pg (27.0-31.0); MEAN CORPUSCULAR HGB CONC 32.7 g/dL (33.0-37.0); MEAN PLATELET VOLUME 8.5 fL (7.2-11.7); MONO % 10.2 % (0.0-10.0); NEUT # 7.6 K/uL (1.8-7.0); NEUT % 74.5 % (50.0-75.0); RBC 4.87 Mil/uL (4.40-5.90); RED CELL DISTRIBUTION WIDTH 14.5 % (11.5-14.5); WHITE BLOOD COUNT 10.2 K/uL (4.8-10.8)
[2018-05-06 00:07] LABS: MEAN CELL VOLUME 88.3 fL (80.0-94.0)
--- NOTE | 2018-05-06 00:14 | C.PDOC ---
History Of Present Illness 68 year old male with PMHx of COPD, CHF, diabetes and Afib presents to the ED complaining of shortness of breath that began tonight. Reports with compliance with medications and reports he did a breathing treatment prior to arrival. States the shortness of breath wakes him up from his sleep. Denies any fever, chills, cough, chest pain, palpitations, nausea, vomiting, or any other medications. Patient was admitted on 04/03 for CHF. States he had a sleep test on 04/27/18 and has an appointment with software engineering specialist on 05/22/17. Time Seen by Provider: 05/05/18 23:30 Chief Complaint (Nursing): Shortness Of Breath History Per: Patient History/Exam Limitations: no limitations Onset/Duration Of Symptoms: Hrs Current Symptoms Are (Timing): Still Present Current Respiratory Medications: Albuterol Associated Symptoms: denies: Fever, Chills, Sweating, Bloody Cough, Dizziness, Light-headedness Reports Recently: Hospitalized Past Medical History Reviewed: Historical Data, Nursing Documentation, Vital Signs Vital Signs: Last Vital Signs Temp 97.4 F L 05/05/18 23:29 Pulse 91 H 05/05/18 23:29 Resp 24 05/05/18 23:43 BP 108/71 05/05/18 23:29 Pulse Ox 98 05/05/18 23:29 - Medical History PMH: Asthma, Atrial Fibrillation, CHF, COPD, HTN Denies: Chronic Kidney Disease Surgical History: Pacemaker (15 yrs ago) - [facility] Procedures ASSISTANCE WITH RESPIRATORY VENTILATION, 24-96 HRS, CPAP (11/21/17) Family History: States: No Known Family Hx - Social History Hx Alcohol Use: No Hx Substance Use: No - Immunization History Hx Tetanus Toxoid Vaccination: No Hx Influenza Vaccination: No Hx Pneumococcal Vaccination: No Review Of Systems Except As Marked, All Systems Reviewed And Found Negative. Constitutional: Negative for: Fever, Chills Cardiovascular: Negative for: Chest Pain, Palpitations, Light Headedness Respiratory: Positive for: Shortness of Breath. Negative for: Cough Gastrointestinal: Negative for: Nausea, Vomiting, Diarrhea Physical Exam - Physical Exam Appears: Non-toxic, No Acute Distress Skin: Warm, Dry, No Rash Head: Normacephalic Eye(s): bilateral: Normal Inspection Nose: Normal Oral Mucosa: Moist Neck: Supple Chest: Symmetrical Cardiovascular: Rhythm Regular Respiratory: Rales (at the bases ), No Rhonchi, No Wheezing, Other (speaking full sentences) Gastrointestinal/Abdominal: Soft, No Tenderness, No Guarding, No Rebound Extremity: Bilateral: Atraumatic, No Pedal Edema, Normal Color And Temperature, Normal ROM Neurological/Psych: Oriented x3, Normal Speech Gait: Steady ED Course And Treatment - Laboratory Results Result Diagrams: 05/06/18 00:01 05/06/18 00:01 ECG: Interpreted By Me, Viewed By Me ECG Rhythm: Sinus Rhythm Interpretation Of ECG: Normal QRS. Normal axis. No ST elevations. Prolonged QT. First degree AV Block. Rate From EC O2 Sat by Pulse Oximetry: 98 (RA) Pulse Ox Interpretation: Normal - Radiology CXR: Interpreted by Me, Viewed By Me CXR Interpretation: Yes: Other (CHF) Medical Decision Making Medical Decision Making: Plan - EKG - Bloodwork - CXR - O2 via NC 1200 Patient reports feeling better with O2 treatment. Reports he does not have O2 at home. [address] Romero Monson. Accepts patient for admission under his service. Disposition Counseled Patient/Family Regarding: Studies Performed, Diagnosis - Disposition Disposition: HOSPITALIZED Disposition Time: 01:10 Condition: STABLE - Clinical Impression Clinical Impression: CHF (congestive heart failure) - Scribe Statement The provider has reviewed the documentation as recorded by the Scribyee Issa All medical record entries made by the Scribe were at my direction and personally dictated by me. I have reviewed the chart and agree that the record accurately reflects my personal performance of the history, physical exam, m edical decision making, and the department course for this patient. I have also personally directed, reviewed, and agree with the discharge instructions and disposition.
[2018-05-06 00:15] LABS: INR 1.4; PROTHROMBIN TIME 15.2 SECONDS (9.7-12.2)
[2018-05-06 00:19] LABS: ALB/GLOB RATIO 1.4 (1.0-2.1); ALT/SGPT 79 U/L (21-72); AST/SGOT 74 U/L (17-59); BLOOD UREA NITROGEN 20 mg/dL (9-20); CALCIUM 8.5 mg/dl (8.6-10.4); GFR NON-AFRICAN AMERICAN 50
[2018-05-06 00:30] LABS: B-TYPE NATRIURETIC PEPTIDE 3360 pg/mL (0-900)
[2018-05-06] MEDS ORDERED: Albuterol 0.042% Inhal Sol (1.25 mg/3 mL) UD INH PRN (07:50)
--- NOTE | 2018-05-06 09:07 | RAD ---
Date of service: 05/05/2018 HISTORY: SOB COMPARISON: None available. FINDINGS: LUNGS: Mild pulmonary venous congestive changes PLEURA: Questionable small bilateral effusions left larger than right. No pneumothorax apparent. CARDIOVASCULAR: No aortic atherosclerotic calcification present. Cardiomegaly. No change single lead pacemaker/defibrillator no pulmonary vascular congestion. OSSEOUS STRUCTURES: No significant abnormalities. VISUALIZED UPPER ABDOMEN: Normal. OTHER FINDINGS: None. IMPRESSION: Mild pulmonary venous congestive changes with questionable small bilateral effusions left larger than right
[2018-05-06] MEDS: (Novolog) Insulin Aspart, Recombinant 100 u/ml 10 ml vial SC SCH ×3 (11:30→22:04)
[2018-05-06 14:27] VITALS: RESP 20
[2018-05-06] MEDS: (Lantus) Insulin Glargine, Recombinant SC SCH (22:03)
[2018-05-07] MEDS: Levothyroxine 50 MCG TAB PO SCH (06:04)
[2018-05-07] MEDS: (Novolog) Insulin Aspart, Recombinant 100 u/ml 10 ml vial SC SCH ×4 (07:43→21:23)
--- NOTE | 2018-05-07 09:59 | CP.PCM.CON ---
History of Present Illness - History of Present Illness History of Present Illness: Patient is a gentleman with history of hypertension, mrt-cwjjdsn-ycawrwzsu diabetes, chronic renal insufficiency, ex-smoker, as severe COPD, a nonischemic dilated cardiomyopathy diagnosed in 2004, congestive heart failure, status post [employer] single-chamber AICD implanted in 2004 with a riata lead, generator change in 2013, who comes in for followup. In his usual state of health, patient does get short of breath on exertion. Patient has had multiple hospitalizations because of shortness of breath. In December 2016, Holter monitor showed atrial fibrillation with rapid ventricular rates. Patient's LFTs were normal. TSH was mildly elevated. Creatinine was 1.98 and patient was started on amiodarone 200 mg p.o. twice daily, currently on 100 mg p.o. once a day April 2017, TSH was mildly elevated. Chest x-ray in July 2017 was normal. Liver function tests in August 2017 were normal Patient was on an entresto, however because of insurance reasons on 10/27 it was changed to losartan Pt admitted to twice for lower abdominal pain, dyspnea. CT of abdomen negative. CXR clear lungs with small bilateral effusions. CT of the chest in january 2018 and gain 03/2018 revealed stable pulmonary opacities. Pt left the hospital two days ago, received IV lasix for a few days. Pt has been in nsr. Amio lowered to 100 mg a day. Two years ago, pt had a milrinone pump as an outpatient, saw Dr Brian Johnson, Transplant or LVAD not advised Pt says dyspnea worse at night. pt cannot tolerate nocturnal nitrates, severe headaches. Pt again is now back in the hospital, c/o of shortness of breath at night, but only from abdominal fullness pressing on his lungs. CXR shows minimal pleural effusions, and overal clear lungs. Review of Systems - Review of Systems All systems: reviewed and no additional remarkable complaints except (as above) Past Patient History - Infectious Disease Hx of Infectious Diseases: None - Past Medical History & Family History Past Medical History?: Yes - Past Social History Smoking Status: Former Smoker - CARDIAC Hx Atrial Fibrillation: Yes Hx Congestive Heart Failure: Yes Hx Hypertension: Yes Hx Pacemaker: Yes (15 yrs ago) - PULMONARY Hx Asthma: Yes Hx Chronic Obstructive Pulmonary Disease (COPD): Yes - NEUROLOGICAL Hx Neurological Disorder: No - HEENT Hx HEENT Problems: No - RENAL Hx Chronic Kidney Disease: No - ENDOCRINE/METABOLIC Hx Endocrine Disorders: Yes Hx Diabetes Mellitus Type 1: Yes - HEMATOLOGICAL/ONCOLOGICAL Hx Blood Disorders: No - INTEGUMENTARY Hx Dermatological Problems: No - MUSCULOSKELETAL/RHEUMATOLOGICAL Hx Musculoskeletal Disorders: No Hx Falls: No - GASTROINTESTINAL Hx Gastrointestinal Disorders: No - GENITOURINARY/GYNECOLOGICAL Hx Genitourinary Disorders: No - PSYCHIATRIC Hx Substance Use: No - SURGICAL HISTORY Hx Surgeries: Yes Other/Comment: Pacemaker insertion 15 yrs ago - ANESTHESIA Hx Anesthesia: Yes Hx Anesthesia Reactions: No Hx Malignant Hyperthermia: No Has any member of the family had a problem w/ anesthesia?: No Meds Allergies/Adverse Reactions: Allergies Allergy/AdvReac Type Severity Reaction Status Date / Time Penicillins Allergy Verified 05/05/18 23:32 - Medications Medications: Current Medications Albuterol Sulfate (Albuterol 0.042% Inhal Sakshi (1.25mg/3ml) Ud) 1.25 mg INH RQ4 PRN PRN Reason: Wheezing Last Admin: 05/07/18 04:07 Dose: 1.25 mg Amiodarone HCl (Cordarone) 200 mg PO DAILY [facility] Last Admin: 05/06/18 09:55 Dose: 200 mg Apixaban (Eliquis) 2.5 mg PO BID [facility] Last Admin: 05/06/18 17:50 Dose: 2.5 mg Bisoprolol Fumarate (Zebeta) 5 mg PO DAILY [facility] Last Admin: 05/06/18 09:55 Dose: 5 mg Dicyclomine HCl (Bentyl) 10 mg PO BID PRN PRN Reason: Irritable bowel symptoms Furosemide (Lasix) 20 mg IVP Q12H [facility] Last Admin: 05/07/18 08:02 Dose: 20 mg Insulin Aspart (Novolog) 0 unit SC [facility]; Protocol Last Admin: 05/07/18 07:43 Dose: Not Given Insulin Glargine (Lantus) 20 unit SC [facility] Last Admin: 05/06/18 22:03 Dose: 20 units Levothyroxine Sodium (Synthroid) 50 mcg PO DAILY@0630 [facility] Last Admin: 05/07/18 06:04 Dose: 50 mcg Losartan Potassium (Cozaar) 25 mg PO DAILY [facility] Last Admin: 05/06/18 09:54 Dose: 25 mg Rosuvastatin Calcium (Crestor) 10 mg PO [facility] Last Admin: 05/06/18 22:01 Dose: 10 mg Spironolactone (Aldactone) 25 mg PO DAILY [facility] Last Admin: 05/06/18 09:54 Dose: 25 mg Physical Exam - Head Exam Head Exam: ATRAUMATIC - Eye Exam Eye Exam: EOMI Pupil Exam: NORMAL ACCOMODATION - ENT Exam ENT Exam: Mucous Membranes Moist - Neck Exam Neck exam: Positive for: Normal Inspection - Respiratory Exam Respiratory Exam: Clear to Auscultation Bilateral - Cardiovascular Exam Cardiovascular Exam: REGULAR RHYTHM - Exam External exam: NORMAL EXTERNAL EXAM Speculum exam: Vaginal Discharge - Extremities Exam Extremities exam: Positive for: normal inspection - Back Exam Back exam: NORMAL INSPECTION - Neurological Exam Neurological exam: Alert, CN II-XII Intact, Oriented x3, Reflexes Normal - Psychiatric Exam Psychiatric exam: Normal Affect, Normal Mood - Skin Skin Exam: Normal Color Results - Vital Signs Recent Vital Signs: Last Vital Signs Temp 97.9 F 05/07/18 07:00 Pulse 79 05/07/18 09:52 Resp 20 05/07/18 07:00 BP 123/79 05/07/18 09:52 Pulse Ox 97 05/07/18 07:00 - Labs Result Diagrams: 05/06/18 00:01 05/06/18 00:01 Labs: Laboratory Results - last 24 hr 05/06/18 05/06/18 05/06/18 11:21 16:33 21:39 POC Glucose (mg/dL) 144 H 94 111 H 05/07/18 06:13 POC Glucose (mg/dL) 146 H - EKG Data EKG Interpreted by: Myself EKG shows normal: Sinus rhythm Rate: Normal (long qt) Assessment & Plan - Assessment and Plan (Free Text) Assessment: 1. Chronic systolic heart failure: cxr is overall clear and unchanged form patent's baseline. He is ambulatory and looks well. Symptoms of abdominal fullness pressing on hes chest, compromising his breathing is his main concern. 2. Lower amio to 100 a day, and we will follow LFT 3. Increase cozaar. Pt was denied entresto and I appealed. 4. Continue guidline directed therapy for chronic systolic heart failure.
--- NOTE | 2018-05-07 11:49 | CARD ---
APPROVED REPORT Date of service: 05/05/2018 EKG Measurement Heart [id number] <Conclusion> Sinus rhythm with 1st degree AV block Cannot rule out Anterior infarct, age undetermined Prolonged QT Abnormal ECG
[2018-05-07] MEDS: (Lantus) Insulin Glargine, Recombinant SC SCH (21:22)
--- NOTE | 2018-05-07 23:36 | HP ---
HISTORY OF PRESENT ILLNESS: This is a 68-year-old male with history of hypertension, non-insulin dependent diabetes, chronic kidney disease, COPD, dilated cardiomyopathy with congestive heart failure, status post single chamber defibrillator implant, who was brought to emergency room for shortness of breath on exertion as well as at rest. The patient was evaluated in the emergency room and he was found to have pulmonary congestion. The patient was given diuretics and he was also found to have elevated proBNP. The patient was admitted for further management. The patient also has history of atrial fibrillation and he was started on both amiodarone as well as anticoagulant. REVIEW OF SYSTEMS: Other review of system is negative. ALLERGIES: NO KNOWN ALLERGY. MEDICATIONS: Reviewed and ordered as per MAR. SOCIAL HISTORY: Ex-smoker. No EtOH or substance abuse. FAMILY HISTORY: Not contributory. PHYSICAL EXAMINATION: GENERAL: The patient is in bed, not in any cardiopulmonary distress at the time of this examination. VITAL SIGNS: Blood pressure 102/74, temperature 97.7, respiratory rate 20 and pulse 69. HEENT: Pupils equal, reactive to light. Normal-appearing mucosa of the conjunctivae, oropharynx and nasal membrane mucosa. NECK: Supple. No JVD. No carotid bruit. No lymph node. No thyromegaly. CHEST AND LUNGS: Bilateral symmetrical expansion. Few basilar rales with decreased air entry in the left lower lung field. CARDIOVASCULAR SYSTEM: PMI not localized. S1, S2. No additional sounds. ABDOMEN: Normoactive bowel sounds. No tenderness. No organomegaly. No masses. EXTREMITIES: No cyanosis, no clubbing, no edema. CENTRAL NERVOUS SYSTEM: Alert, awake, oriented x2. ASSESSMENT: 1. Exacerbation of congestive heart failure. 2. Chronic kidney disease. 3. Nonischemic cardiomyopathy status post implantable cardioverter-defibrillator placement. 4. Type 2 diabetes mellitus with hyperglycemia. PLAN: Continue the diuretics. Resume the patient's home medications. Accu-Chek with insulin coverage. Cardiology consult and follow recommendations. Monitor electrolytes. Carlos Monson MD
[2018-05-08] MEDS: Levothyroxine 50 MCG TAB PO SCH (05:31)
[2018-05-08] MEDS: (Novolog) Insulin Aspart, Recombinant 100 u/ml 10 ml vial SC SCH (07:14)
[2018-05-08 07:44] VITALS: TEMP 97.3; O2SAT 96
[2018-05-08 09:19] VITALS: BP 128/83; PULSE 82
--- NOTE | 2018-05-08 13:44 | PCM.HF ---
Heart Failure Core Measure - Heart Failure Ejection Fraction: Less Than 40 % (EF 25-30%) JYOTHI Inhibitor Prescribed: No Contraindication/Reason for not providing: on arb Beta-Jean Claude Prescribed: Bisoprolol Angiotensin II Receptor Jean Claude Prescribed: Yes AnticoagulationTherapy for Atrial Fibrillation/Atrialflutter: Yes Aldosterone Antagonist Prescribed: Yes Hydralazine Nitrate Prescribed: No Contraindication/Reason for not providing: on amiodarone Implantable Cardioverter Defibrillator Therapy: Yes Cardiac Resynchronization Therapy Prescribed: No Contraindication/Reason for not providing: pacemaker - Follow up Will be discharged to: Home Follow Up Date (must be within 7 days from discharge): 05/14/18 Follow Up Time: 10:00
--- NOTE | 2018-05-09 04:41 | DS ---
REASON FOR ADMISSION: This is a 68-year-old male with history of multiple medical problems, was admitted through emergency room for exacerbation of congestive heart failure, ojexs-ae-kwwihtv systolic heart failure. HOSPITAL COURSE: The patient was admitted to telemetry floor, and he was started on diuretics. The patient had a cardiology consultation done by Dr. Graves and amiodarone was decreased to 100 mg daily. The patient's symptoms were completely resolved after diuretics, and he became asymptomatic and discharged home to continue amiodarone 100 mg and the current medications and use Lasix daily. FINAL DIAGNOSES: Ckrzz-pj-xbyztcz systolic heart failure, chronic kidney disease, hypertension, type 2 diabetes mellitus, chronic obstructive pulmonary disease. Delaney MD E[facility]ias
== END 2018-05-08 14:52 | disposition home or self-care (01) ==
LOC: C.ER 23:23 → INTOOBSV 05-06 01:10 → C.9E 05-06 01:10 → C.9I 05-06 05:27 → C.6T 05-06 15:17
PROVIDERS: ADMIT Internal Medicine; ATTEND Internal Medicine
DX: I13.0 Hypertensive heart and chronic kidney disease with heart failure and stage 1 through stage 4 chronic kidney disease, or unspecified chronic kidney disease (principal); I50.23 Acute on chronic systolic (congestive) heart failure; I42.0 Dilated cardiomyopathy; E11.22 Type 2 diabetes mellitus with diabetic chronic kidney disease; E11.65 Type 2 diabetes mellitus with hyperglycemia; N18.9 Chronic kidney disease, unspecified; I48.91 Unspecified atrial fibrillation; J44.9 Chronic obstructive pulmonary disease, unspecified; Z95.810 Presence of automatic (implantable) cardiac defibrillator; Z87.891 Personal history of nicotine dependence; Z79.4 Long term (current) use of insulin; Z79.899 Other long term (current) drug therapy
CPT/HCPCS: 71045; 80053; 82948; 83735; 83880; 84484; 85025; 85610; 85730; 87081; 93005; 96374; 99285; G0378; J1940

== ENCOUNTER 2018-05-21 11:32 | Outpatient (CLI) | payer MEDICARE, OTHER | END 2018-05-21 11:33 | disposition home or self-care (01) | LOC: C.USIC 11:32 | DX: N18.3 Chronic kidney disease, stage 3 (moderate) (principal) ==

== ENCOUNTER 2018-07-05 12:14 | Observation (INO) | payer MEDICARE, OTHER ==
[2018-07-05 12:15] VITALS: PULSE 87
[2018-07-05 12:47] VITALS: BMI 27.4
[2018-07-05 13:00] LABS: BASO # 0.1 K/uL (0.0-0.2); BASO % 0.6 % (0.0-2.0); EOS # 0.1 K/uL (0.0-0.7); EOS % 0.6 % (0.0-4.0); LYMPH # 1.8 K/uL (1.0-4.3); LYMPH % 12.7 % (20.0-40.0); MEAN CORPUSCULAR HEMOGLOBIN 27.8 pg (27.0-31.0); MEAN CORPUSCULAR HGB CONC 32.8 g/dL (33.0-37.0); MEAN PLATELET VOLUME 8.7 fL (7.2-11.7); MONO # 1.5 K/uL (0.0-0.8); MONO % 10.8 % (0.0-10.0); NEUT # 10.6 K/uL (1.8-7.0); NEUT % 75.3 % (50.0-75.0); NRBC % 0.1 % (0.0-2.0); RBC 6.23 Mil/uL (4.40-5.90); RED CELL DISTRIBUTION WIDTH 16.7 % (11.5-14.5); WHITE BLOOD COUNT 14.1 K/uL (4.8-10.8)
[2018-07-05 13:09] LABS: HEMOGLOBIN 17.4 g/dL (12.0-18.0)
[2018-07-05 13:11] LABS: INR 1.3; PROTHROMBIN TIME 14.7 SECONDS (9.7-12.2)
[2018-07-05 13:40] LABS: ALB/GLOB RATIO 1.4 (1.0-2.1); ALBUMIN 4.6 g/dL (3.5-5.0); CALCIUM 9.2 mg/dl (8.6-10.4)
[2018-07-05 13:50] LABS: SQUAMOUS EPITHIAL 1 /hpf (0-5); URINE BACTERIA RARE (<OCC); URINE BILIRUBIN NEGATIVE (NEGATIVE); URINE BLOOD NEGATIVE (NEGATIVE); URINE CLARITY Hazy (Clear); URINE COLOR Yellow (YELLOW); URINE GLUCOSE (UA) NORMAL (Normal); URINE LEUKOCYTE ESTERASE NEG Leu/uL (Negative); URINE PROTEIN NEGATIVE (NEGATIVE)
[2018-07-05 13:53] LABS: CK-MB 1.81 ng/mL (0.0-3.38); TROPONIN I 0.029 ng/mL (0.00-0.120)
--- NOTE | 2018-07-05 14:07 | RAD ---
Date of service: 07/05/2018 PROCEDURE: CHEST RADIOGRAPH, 1 VIEW HISTORY: weakness COMPARISON: 05/05/2018. FINDINGS: LUNGS: The lungs are well inflated and clear. There is redemonstration of a 1.0 cm faint opacity with irregular margins in the right upper PLEURA: No pneumothorax or pleural effusion. CARDIOVASCULAR: Persistent mild cardiomegaly. There is stable position of left-sided AICD no aortic atherosclerotic calcifications present. OSSEOUS STRUCTURES: Within normal limits for the patient's age. VISUALIZED UPPER ABDOMEN: Normal. OTHER FINDINGS: None. IMPRESSION: No active pulmonary disease. Redemonstration of 1.0 cm faint nodular opacity with irregular margins in the right upper lobe. Follow-up CT scan in 3 months interval is advised to assess stability. The final report is tagged to the PA review folder.
--- NOTE | 2018-07-05 15:06 | C.PDOC ---
History Of Present Illness 68 y/o male,w/PMhx of COPD, CHF, cardiomyopathy, pacemaker, and defibrillator, brought to ER by ambulance for evaluation of generalized weakness and poor appetite. Patient states that he went to and he examined him. He was brought to ER from his office.Denies having fever,chills, CP,SOB, nausea, and vomiting. Time Seen by Provider: 07/05/18 12:32 Chief Complaint (Nursing): Weakness/Neurological Deficit History Per: Patient History/Exam Limitations: no limitations Onset/Duration Of Symptoms: Days Past Medical History Reviewed: Historical Data, Nursing Documentation, Vital Signs Vital Signs: Last Vital Signs Temp 97.8 F 07/05/18 12:24 Pulse 74 07/05/18 14:58 Resp 14 07/05/18 14:58 BP 106/46 L 07/05/18 14:58 Pulse Ox 96 07/05/18 14:58 - Medical History PMH: Asthma, Atrial Fibrillation, CHF, COPD, HTN, Chronic Kidney Disease Surgical History: Pacemaker (15 yrs ago) - BO.LT Procedures ASSISTANCE WITH RESPIRATORY VENTILATION, 24-96 HRS, CPAP (11/21/17) Family History: States: No Known Family Hx - Social History Hx Alcohol Use: No Hx Substance Use: No - Immunization History Hx Tetanus Toxoid Vaccination: No Hx Influenza Vaccination: No Hx Pneumococcal Vaccination: No Review Of Systems Except As Marked, All Systems Reviewed And Found Negative. Constitutional: Positive for: Weakness. Negative for: Fever, Chills Cardiovascular: Negative for: Chest Pain Respiratory: Negative for: Shortness of Breath Gastrointestinal: Negative for: Nausea, Vomiting, Abdominal Pain Physical Exam - Physical Exam Appears: Non-toxic, No Acute Distress Skin: Normal Color, Warm, Dry Head: Atraumatic, Normacephalic Eye(s): bilateral: Normal Inspection Nose: Normal Oral Mucosa: Moist Neck: Supple Chest: Symmetrical Cardiovascular: Rhythm Regular Respiratory: Normal Breath Sounds, No Rales, No Rhonchi, No Wheezing Gastrointestinal/Abdominal: Normal Exam, Soft, No Tenderness, No Guarding, No Rebound Extremity: Normal ROM, No Calf Tenderness Neurological/Psych: Oriented x3, Normal Speech ED Course And Treatment - Laboratory Results Result Diagrams: 07/05/18 12:53 07/05/18 12:53 Lab Results: PT 14.7 SECONDS (9.7-12.2) H 07/05/18 12:53 INR 1.3 07/05/18 12:53 APTT 34 SECONDS (21-34) 07/05/18 12:53 Troponin I 0.0290 ng/mL (0.00-0.120) 07/05/18 12:53 NT-Pro-B Natriuret Pep 922 pg/mL (0-900) H 07/05/18 12:53 Total Bilirubin 2.2 mg/dL (0.2-1.3) H 07/05/18 12:53 AST 75 U/L (17-59) H 07/05/18 12:53 ALT 19 U/L (21-72) L D 07/05/18 12:53 Alkaline Phosphatase 102 U/L (38-126) 07/05/18 12:53 Total Protein 7.8 g/dL (6.3-8.3) 07/05/18 12:53 Albumin 4.6 g/dL (3.5-5.0) 07/05/18 12:53 Globulin 3.3 gm/dL (2.2-3.9) 07/05/18 12:53 Albumin/Globulin Ratio 1.4 (1.0-2.1) 07/05/18 12:53 Urine Color Yellow (YELLOW) 07/05/18 13:42 Urine Clarity Hazy (Clear) 07/05/18 13:42 Urine pH 5.0 (5.0-8.0) 07/05/18 13:42 Ur Specific [place] 1.012 (1.003-1.030) 07/05/18 13:42 Urine Protein Negative mg/dL (NEGATIVE) 07/05/18 13:42 Urine Glucose (UA) Normal mg/dL (Normal) 07/05/18 13:42 Urine Ketones Negative mg/dL (NEGATIVE) 07/05/18 13:42 Urine Blood Negative (NEGATIVE) 07/05/18 13:42 Urine Nitrate Negative (NEGATIVE) 07/05/18 13:42 Urine Bilirubin Negative (NEGATIVE) 07/05/18 13:42 Urine Urobilinogen 2.0 mg/dL (0.2-1.0) 07/05/18 13:42 Ur Leukocyte Esterase Neg Joy/uL (Negative) 07/05/18 13:42 Urine WBC (Auto) 3 /hpf (0-5) 07/05/18 13:42 Urine RBC (Auto) 1 /hpf (0-3) 07/05/18 13:42 Ur Squamous Epith Cells 1 /hpf (0-5) 07/05/18 13:42 Urine Bacteria Rare (<OCC) 07/05/18 13:42 ECG: Interpreted By Me, Viewed By Me ECG Rhythm: Sinus Rhythm Interpretation Of ECG: NSR with non-specific T wave abnormalities Rate From EC O2 Sat by Pulse Oximetry: 96 (RA) Pulse Ox Interpretation: Normal - Other Rad CXR X-Ray: Viewed By Me, Read By Radiologist Interpretation: Date of service: 07/05/2018. PROCEDURE: CHEST RADIOGRAPH, 1 VIEW. HISTORY: weakness. COMPARISON: 05/05/2018. FINDINGS: LUNGS: The lungs are well inflated and clear. There is redemonstration of a 1.0 cm faint opacity with irregular margins in the right upper. PLEURA: No pneumothorax or pleural effusion. CARDIOVASCULAR: Persistent mild cardiomegaly. There is stable position of left-sided AICD no aortic atherosclerotic calcifications present. OSSEOUS STRUCTURES: Within normal limits for the patient's age. VISUALIZED UPPER ABDOMEN: Normal. OTHER FINDINGS: None. IMPRESSION: No active pulmonary disease. Redemonstration of 1.0 cm faint nodular opacity with irregular margins in the right upper lobe. Follow-up CT scan in 3 months interval is advised to assess stability. Progress Note: Labs and UA ordered. 15:05- Case discussd with Dr. Graves. advised that patient stop taking Spironolactone and Amiodarone and patient should have fluid restrictions. would like for patient to be admitted and for him to be placed on consult. 16:40 Case discussed with , hospitalist. Patient will be admitted to Telemetry Observation under the service of . Disposition - Disposition Disposition: HOSPITALIZED Disposition Time: 16:05 Condition: FAIR - Clinical Impression Clinical Impression: Dizziness, CHF (congestive heart failure), Diabetes mellitus, COPD (chronic obstructive pulmonary disease), Cardiomyopathy - PA / CRIBBER / Resident Statement MD/DO has reviewed & agrees with the documentation as recorded. - Scribe Statement The provider has reviewed the documentation as recorded by the Fadiaibe Efrain Taveras Provider Attestation All medical record entries made by the Scribe were at my direction and personally dictated by me. I have reviewed the chart and agree that the record accurately reflects my personal performance of the history, physical exam, medical decision making, and the department course for this patient. I have also personally directed, reviewed, and agree with the discharge instructions and disposition. Decision To Admit - Pt Status Changed To: Hospital Disposition Of: Observation - . Bed Request Type: Telemetry Admitting Physician: Live Peralta Patient Diagnosis: Dizziness, CHF (congestive heart failure), Diabetes mellitus, COPD (chronic obstructive pulmonary disease), Cardiomyopathy
--- NOTE | 2018-07-05 16:18 | CP.PCM.HP ---
<Shahla Alexander - Last Filed: 07/05/18 17:30> History of Present Illness - History of Present Illness History of Present Illness: Hospitalist H & P (covering for Dr. Monson) This is a 68 year old male with PMHx of HTN, IDDM, CKD, COPD, Systolic Heart failure with AICD (placed 2004, generator changed in 2013), Atrial fibrillation, Nonischemic dilated cardiomyopathy, and hypothyroidism who was sent by [employer] Clerk due to symptoms of generalized weakness and poor appetite x 1 week. He reported having decreased appetite, generalized fatigue, food would get stuck in the middle of his throat and vomit it up. He stated he was able to drink water, juice, and soda. Denied fever, chills, nausea, diarrhea during that time. Patient reports he returned from [place] on 07/03/18. Patient denied any chest pain, shortness of breath, or lower extremity swelling or tenderness. PMHx: As noted above PSHx: AICD Meds: Reviewed with patient All: PCNs - unsure about reaction SHx: Patient smoked 2 ppd x 50y, quit 6-10 years ago. Patient drank liquor enough to get him drunk once a week, quit 10 years ago. Patient reported daily marijuana use, quit 10 years ago FHx: Sister of valvular disease at 30y. Brother of [place] at an old age. Daughter has valvular disease. PMD: Ermias Cardio: Star Pulm: Ish Nephro: Nile Present on Admission - Present on Admission Any Indicators Present on Admission: No Past Patient History - Infectious Disease Hx of Infectious Diseases: None - Past Medical History & Family History Past Medical History?: Yes - Past Social History Smoking Status: Former Smoker - CARDIAC Hx Atrial Fibrillation: Yes Hx Congestive Heart Failure: Yes Hx Hypertension: Yes Hx Pacemaker: Yes (15 yrs ago) - PULMONARY Hx Asthma: Yes Hx Chronic Obstructive Pulmonary Disease (COPD): Yes - NEUROLOGICAL Hx Neurological Disorder: No - HEENT Hx HEENT Problems: No - RENAL Hx Chronic Kidney Disease: Yes - ENDOCRINE/METABOLIC Hx Endocrine Disorders: Yes Hx Diabetes Mellitus Type 2: Yes - HEMATOLOGICAL/ONCOLOGICAL Hx Blood Disorders: No - INTEGUMENTARY Hx Dermatological Problems: No - MUSCULOSKELETAL/RHEUMATOLOGICAL Hx Musculoskeletal Disorders: No Hx Falls: No - GASTROINTESTINAL Hx Gastrointestinal Disorders: No - GENITOURINARY/GYNECOLOGICAL Hx Genitourinary Disorders: No - PSYCHIATRIC Hx Substance Use: No - SURGICAL HISTORY Hx Surgeries: Yes Other/Comment: Pacemaker insertion 15 yrs ago/AICD placement - ANESTHESIA Hx Anesthesia: Yes Hx Anesthesia Reactions: No Hx Malignant Hyperthermia: No Meds Allergies/Adverse Reactions: Allergies Allergy/AdvReac Type Severity Reaction Status Date / Time Penicillins Allergy Verified 05/05/18 23:32 Physical Exam - Constitutional Appears: No Acute Distress - Head Exam Head Exam: NORMAL INSPECTION, NORMOCEPHALIC - Eye Exam Eye Exam: EOMI, Normal appearance, PERRL Pupil Exam: NORMAL ACCOMODATION - ENT Exam ENT Exam: Mucous Membranes Dry - Neck Exam Neck exam: Positive for: Normal Inspection. Negative for: Lymphadenopathy, Tenderness, Thyromegaly - Respiratory Exam Respiratory Exam: NORMAL BREATHING PATTERN. absent: Decreased Breath Sounds, Rales, Rhonchi, Wheezes - Cardiovascular Exam Cardiovascular Exam: RRR, +S1, +S2 - GI/Abdominal Exam GI & Abdominal Exam: Normal Bowel Sounds, Soft. absent: Distended, Tenderness - Extremities Exam Extremities exam: Positive for: normal inspection, pedal pulses present. Negative for: pedal edema, tenderness - Neurological Exam Neurological exam: Alert, Oriented x3 - Psychiatric Exam Psychiatric exam: Normal Affect, Normal Mood - Skin Skin Exam: Dry, Intact, Normal Color, Warm Results - Vital Signs Recent Vital Signs: Last Vital Signs Temp 97.8 F 07/05/18 12:24 Pulse 74 07/05/18 14:58 Resp 14 07/05/18 14:58 BP 106/46 L 07/05/18 14:58 Pulse Ox 96 07/05/18 16:14 - Labs Result Diagrams: 07/05/18 12:53 07/05/18 12:53 Labs: Laboratory Results - last 24 hr 07/05/18 07/05/18 07/05/18 12:22 12:53 12:53 WBC 14.1 H RBC 6.23 H Hgb 17.4 D Hct 53.0 H MCV 85.0 D MCH 27.8 MCHC 32.8 L RDW 16.7 H Plt Count 212 MPV 8.7 Neut % (Auto) 75.3 H Lymph % (Auto) 12.7 L [place] % (Auto) 10.8 H Eos % (Auto) 0.6 Baso % (Auto) 0.6 Neut # (Auto) 10.6 H Lymph # (Auto) 1.8 [place] # (Auto) 1.5 H Eos # (Auto) 0.1 Baso # (Auto) 0.1 PT 14.7 H INR 1.3 APTT 34 Sodium Potassium Chloride Carbon Dioxide Anion Gap BUN Creatinine Est GFR ( Amer) Est GFR (Non-Af Amer) POC Glucose (mg/dL) 115 H Random Glucose Calcium Magnesium Total Bilirubin AST ALT Alkaline Phosphatase Total Creatine Kinase CK-MB (Mass) Troponin I NT-Pro-B Natriuret Pep Total Protein Albumin Globulin Albumin/Globulin Ratio Free T4 TSH 3rd Generation Urine Color Urine Clarity Urine pH Ur Specific [place] Urine Protein Urine Glucose (UA) Urine Ketones Urine Blood Urine Nitrate Urine Bilirubin Urine Urobilinogen Ur Leukocyte Esterase Urine WBC (Auto) Urine RBC (Auto) Ur Squamous Epith Cells Urine Bacteria 07/05/18 07/05/18 07/05/18 12:53 12:53 13:42 WBC RBC Hgb Hct MCV MCH MCHC RDW Plt Count MPV Neut % (Auto) Lymph % (Auto) [place] % (Auto) Eos % (Auto) Baso % (Auto) Neut # (Auto) Lymph # (Auto) [place] # (Auto) Eos # (Auto) Baso # (Auto) PT INR APTT Sodium 128 L Potassium 3.5 L Chloride 81 L Carbon Dioxide 35 H Anion Gap 16 BUN 26 H Creatinine 1.7 H Est GFR ( Amer) 48 Est GFR (Non-Af Amer) 40 POC Glucose (mg/dL) Random Glucose 99 Calcium 9.2 Magnesium 2.0 Total Bilirubin 2.2 H AST 75 H ALT 19 L D Alkaline Phosphatase 102 Total Creatine Kinase 273 H CK-MB (Mass) 1.81 Troponin I 0.0290 NT-Pro-B Natriuret Pep 922 H Total Protein 7.8 Albumin 4.6 Globulin 3.3 Albumin/Globulin Ratio 1.4 Free T4 2.03 TSH 3rd Generation 5.69 H Urine Color Yellow Urine Clarity Hazy Urine pH 5.0 Ur Specific [place] 1.012 Urine Protein Negative Urine Glucose (UA) Normal Urine Ketones Negative Urine Blood Negative Urine Nitrate Negative Urine Bilirubin Negative Urine Urobilinogen 2.0 Ur Leukocyte Esterase Neg Urine WBC (Auto) 3 Urine RBC (Auto) 1 Ur Squamous Epith Cells 1 Urine Bacteria Rare Assessment & Plan - Assessment and Plan (Free Text) Plan: Dehydration Secondary to diuretics Generalized Fatigue - Patient did not take any medications today, was able to tolerate a sandwich in the ED. Will not initiate IVF, will have patient increase PO intake ABBY on CKD Stage 3 - Followed by Dr. Dowd outpatient - Likely 2/2 to dehydration (diurectics and poor PO intake) - Will encourage PO intake and continue to monitor Hypothyroidism - TSH elevated on prior admission and this admission, no changes to his synthroid was made - Increased from 50mcg to 75mcg, will need repeat TSH in 4-[address] Monson Systolic Heart failure w/ AICD (placed 2004, generator changed in 2013) Nonischemic Dilated Cardiomyopathy - Patient is to resume only Torsemide 20mg PO daily (aldactone and lasix were discontinued) HTN - Continue Losartan 25mg PO daily IDDM - Accuchecks - Continue with Lantus 20units QHS - HHD with mod carb consistent diet COPD - Followed by Dr. Deng outpatient Atrial fibrillation - On Zebeta, Eliquis ARIC - Followed by Dr. Deng outpatient - On CPAP Prophylactic Measures - GI PPX: Protonix daily - DVT PPX: Eliquis, SCDs Disposition: Patient will be transferred to Dr. Monson' service on 07/06/18. He will be seen by Dr. Graves. DW Dr. Jauregui, Shahla Alexander DO, PGY2 <Tony Jauregui - Last Filed: 07/05/18 19:03> Results - Vital Signs Recent Vital Signs: Last Vital Signs Temp 98.2 F 07/05/18 18:53 Pulse 73 07/05/18 18:53 Resp 20 07/05/18 18:53 BP 97/64 L 07/05/18 18:53 Pulse Ox 96 07/05/18 18:53 - Labs Result Diagrams: 07/05/18 12:53 07/05/18 12:53 Labs: Laboratory Results - last 24 hr 07/05/18 07/05/18 07/05/18 12:22 12:53 12:53 WBC 14.1 H RBC 6.23 H Hgb 17.4 D Hct 53.0 H MCV 85.0 D MCH 27.8 MCHC 32.8 L RDW 16.7 H Plt Count 212 MPV 8.7 Neut % (Auto) 75.3 H Lymph % (Auto) 12.7 L [place] % (Auto) 10.8 H Eos % (Auto) 0.6 Baso % (Auto) 0.6 Neut # (Auto) 10.6 H Lymph # (Auto) 1.8 [place] # (Auto) 1.5 H Eos # (Auto) 0.1 Baso # (Auto) 0.1 PT 14.7 H INR 1.3 APTT 34 Sodium Potassium Chloride Carbon Dioxide Anion Gap BUN Creatinine Est GFR ( Amer) Est GFR (Non-Af Amer) POC Glucose (mg/dL) 115 H Random Glucose Calcium Magnesium Total Bilirubin AST ALT Alkaline Phosphatase Total Creatine Kinase CK-MB (Mass) Troponin I NT-Pro-B Natriuret Pep Total Protein Albumin Globulin Albumin/Globulin Ratio Free T4 TSH 3rd Generation Urine Color Urine Clarity Urine pH Ur Specific [place] Urine Protein Urine Glucose (UA) Urine Ketones Urine Blood Urine Nitrate Urine Bilirubin Urine Urobilinogen Ur Leukocyte Esterase Urine WBC (Auto) Urine RBC (Auto) Ur Squamous Epith Cells Urine Bacteria Influenza Typ A,B (EIA) 07/05/18 07/05/18 07/05/18 12:53 12:53 13:42 WBC RBC Hgb Hct MCV MCH MCHC RDW Plt Count MPV Neut % (Auto) Lymph % (Auto) [place] % (Auto) Eos % (Auto) Baso % (Auto) Neut # (Auto) Lymph # (Auto) [place] # (Auto) Eos # (Auto) Baso # (Auto) PT INR APTT Sodium 128 L Potassium 3.5 L Chloride 81 L Carbon Dioxide 35 H Anion Gap 16 BUN 26 H Creatinine 1.7 H Est GFR ( Amer) 48 Est GFR (Non-Af Amer) 40 POC Glucose (mg/dL) Random Glucose 99 Calcium 9.2 Magnesium 2.0 Total Bilirubin 2.2 H AST 75 H ALT 19 L D Alkaline Phosphatase 102 Total Creatine Kinase 273 H CK-MB (Mass) 1.81 Troponin I 0.0290 NT-Pro-B Natriuret Pep 922 H Total Protein 7.8 Albumin 4.6 Globulin 3.3 Albumin/Globulin Ratio 1.4 Free T4 2.03 TSH 3rd Generation 5.69 H Urine Color Yellow Urine Clarity Hazy Urine pH 5.0 Ur Specific [place] 1.012 Urine Protein Negative Urine Glucose (UA) Normal Urine Ketones Negative Urine Blood Negative Urine Nitrate Negative Urine Bilirubin Negative Urine Urobilinogen 2.0 Ur Leukocyte Esterase Neg Urine WBC (Auto) 3 Urine RBC (Auto) 1 Ur Squamous Epith Cells 1 Urine Bacteria Rare Influenza Typ A,B (EIA) 07/05/18 17:34 WBC RBC Hgb Hct MCV MCH MCHC RDW Plt Count MPV Neut % (Auto) Lymph % (Auto) [place] % (Auto) Eos % (Auto) Baso % (Auto) Neut # (Auto) Lymph # (Auto) [place] # (Auto) Eos # (Auto) Baso # (Auto) PT INR APTT Sodium Potassium Chloride Carbon Dioxide Anion Gap BUN Creatinine Est GFR ( Amer) Est GFR (Non-Af Amer) POC Glucose (mg/dL) Random Glucose Calcium Magnesium Total Bilirubin AST ALT Alkaline Phosphatase Total Creatine Kinase CK-MB (Mass) Troponin I NT-Pro-B Natriuret Pep Total Protein Albumin Globulin Albumin/Globulin Ratio Free T4 TSH 3rd Generation Urine Color Urine Clarity Urine pH Ur Specific [place] Urine Protein Urine Glucose (UA) Urine Ketones Urine Blood Urine Nitrate Urine Bilirubin Urine Urobilinogen Ur Leukocyte Esterase Urine WBC (Auto) Urine RBC (Auto) Ur Squamous Epith Cells Urine Bacteria Influenza Typ A,B (EIA) Negative for flu a/b Attending/Attestation - Attestation I have personally seen and examined this patient.: Yes I have fully participated in the care of the patient.: Yes I have reviewed all pertinent clinical information: Yes Notes (Text): Medical attending: Patient was seen and examined by me, agree with the above note by the resident The hospitalist service is covering for the patient's physician whom will be returning tomorrow. 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 He had a CXRAY done and this did not show any venous congestion Tony Jauregui
[2018-07-05] MEDS ORDERED: Dextrose 50% SYRINGE Inj (50 ml) IV PRN (16:25)
[2018-07-05] MEDS ORDERED: Glucagon Recombinant 1 mg Inj IM PRN (16:25)
[2018-07-05] MEDS ORDERED: Potassium Chloride 20 mEq ER Tab PO ONE ×2 (16:36→17:22)
[2018-07-05] MEDS: (Lantus) Insulin Glargine, Recombinant SC SCH (18:50)
[2018-07-05] MEDS: (Novolin R) Insulin Human Regular 100 units/ml vial SC SCH ×2 (18:52→21:42)
[2018-07-05 18:54] VITALS: RESP 20
[2018-07-06] MEDS: Albuterol-Ipratrop 3 mg / 0.5 (3 ml) UD INH SCH ×4 (01:22→20:14)
[2018-07-06] MEDS: Levothyroxine 75 MCG TAB PO SCH (05:58)
[2018-07-06] MEDS ORDERED: Levothyroxine 50 MCG TAB PO SCH ×2 (06:30)
[2018-07-06 07:44] LABS: BASO # 0.1 K/uL (0.0-0.2); BASO % 0.5 % (0.0-2.0); EOS # 0.1 K/uL (0.0-0.7); EOS % 1.4 % (0.0-4.0); LYMPH # 1.5 K/uL (1.0-4.3); LYMPH % 14.7 % (20.0-40.0); MEAN CELL VOLUME 83.3 fL (80.0-94.0); MEAN CORPUSCULAR HEMOGLOBIN 28.4 pg (27.0-31.0); MEAN PLATELET VOLUME 9.2 fL (7.2-11.7); MONO # 1.2 K/uL (0.0-0.8); MONO % 11.7 % (0.0-10.0); NEUT # 7.4 K/uL (1.8-7.0); NEUT % 71.7 % (50.0-75.0); NRBC % 0.1 % (0.0-2.0); RBC 5.99 Mil/uL (4.40-5.90); RED CELL DISTRIBUTION WIDTH 16.6 % (11.5-14.5); WHITE BLOOD COUNT 10.4 K/uL (4.8-10.8)
[2018-07-06 07:53] LABS: ALB/GLOB RATIO 1.3 (1.0-2.1); ALBUMIN 4.1 g/dL (3.5-5.0); ALT/SGPT 16 U/L (21-72); AST/SGOT 50 U/L (17-59); BLOOD UREA NITROGEN 22 mg/dL (9-20); CALCIUM 9.1 mg/dl (8.6-10.4); GFR NON-AFRICAN AMERICAN 50
[2018-07-06] MEDS: (Novolin R) Insulin Human Regular 100 units/ml vial SC SCH ×4 (07:54→21:29)
[2018-07-06] MEDS: Pantoprazole 40 mg EC Tab PO SCH (10:33)
[2018-07-06] MEDS: (Lantus) Insulin Glargine, Recombinant SC SCH (18:19)
[2018-07-07] MEDS: Albuterol-Ipratrop 3 mg / 0.5 (3 ml) UD INH SCH ×3 (02:08→14:18)
[2018-07-07] MEDS: Levothyroxine 75 MCG TAB PO SCH (06:51)
[2018-07-07] MEDS: (Novolin R) Insulin Human Regular 100 units/ml vial SC SCH ×2 (07:54→11:40)
[2018-07-07 08:11] LABS: ALB/GLOB RATIO 1.4 (1.0-2.1); ALBUMIN 3.7 g/dL (3.5-5.0); BILIRUBIN,DIRECT 0.2 mg/dL (0.0-0.4)
[2018-07-07 08:35] VITALS: BP 104/70; PULSE 68; TEMP 98
[2018-07-07] MEDS: Pantoprazole 40 mg EC Tab PO SCH (09:40)
[2018-07-07 11:07] LABS: BASO % 0.4 % (0.0-2.0); EOS # 0.2 K/uL (0.0-0.7); EOS % 1.7 % (0.0-4.0); HEMOGLOBIN 16.6 g/dL (12.0-18.0); LYMPH # 1.8 K/uL (1.0-4.3); LYMPH % 15.2 % (20.0-40.0); MEAN CELL VOLUME 85.5 fL (80.0-94.0); MEAN CORPUSCULAR HEMOGLOBIN 27.9 pg (27.0-31.0); MEAN CORPUSCULAR HGB CONC 32.6 g/dL (33.0-37.0); MEAN PLATELET VOLUME 9.3 fL (7.2-11.7); MONO # 1.4 K/uL (0.0-0.8); MONO % 11.7 % (0.0-10.0); NEUT # 8.3 K/uL (1.8-7.0); NRBC % 0.1 % (0.0-2.0); RBC 5.94 Mil/uL (4.40-5.90); RED CELL DISTRIBUTION WIDTH 16.9 % (11.5-14.5); WHITE BLOOD COUNT 11.7 K/uL (4.8-10.8)
[2018-07-07 11:20] LABS: BLOOD UREA NITROGEN 20 mg/dL (9-20); GFR NON-AFRICAN AMERICAN 55
--- NOTE | 2018-07-07 11:28 | PN ---
DATE: 07/06/2018 SUBJECTIVE: His symptoms were partially improved after hydration. PHYSICAL EXAMINATION: VITAL SIGNS: Blood pressure was 136/67, temperature 98.2, respiratory rate 20 and pulse 71. HEENT: Pupils equal, reactive to light. Normal-appearing mucosa of the conjunctivae, oropharynx and nasal membrane mucosa. NECK: Supple. No JVD. No carotid bruit. No lymph node. No thyromegaly. CHEST AND LUNGS: Bilateral symmetrical expansion. Good air exchange. No rales, no rhonchi. CARDIOVASCULAR: PMI not localized, S1 and S2. No additional sounds. ABDOMEN: Normoactive bowel sounds. No tenderness. No organomegaly. No masses. EXTREMITIES: No cyanosis, no clubbing, no edema. CENTRAL NERVOUS SYSTEM: Alert, awake, oriented x2. No neurological deficit could be appreciated. ASSESSMENT: 1. Resolving uremic symptom of prerenal azotemia in the form of decreased oral intake and loss of appetite with dehydration. The patient also was on diuretics. 2. History of chronic kidney disease, stage 3. 3. Nonischemic cardiomyopathy, status post implantable cardioverter defibrillator placement. 4. Type 2 diabetes mellitus. PLAN: Continue IV hydration and if the patient continued to improve, we will discharge home on 07/07/2018. Carlos Monson MD
[2018-07-07 12:19] VITALS: O2SAT 99
--- NOTE | 2018-07-07 14:27 | PCM.HF ---
Heart Failure Core Measure Beta-Jean Claude Prescribed: Bisoprolol Angiotensin II Receptor Jean Claude Prescribed: Yes AnticoagulationTherapy for Atrial Fibrillation/Atrialflutter: Yes
--- NOTE | 2018-07-07 18:29 | CP.PCM.PN ---
Objective - Vital Signs/Intake and Output Vital Signs (last 24 hours): Temp Pulse Resp BP Pulse Ox 98 F 68 20 104/70 99 07/07/18 07:00 07/07/18 12:46 07/07/18 07:00 07/07/18 07:00 07/07/18 07:10 Intake and Output: 07/07/18 07/07/18 06:59 18:59 Intake Total 320 450 Balance 320 450 - Labs Labs: 07/07/18 10:45 07/07/18 10:45 PT 14.7 SECONDS (9.7-12.2) H 07/05/18 12:53 INR 1.3 07/05/18 12:53 APTT 34 SECONDS (21-34) 07/05/18 12:53 Assessment and Plan - Assessment and Plan (Free Text) Assessment: 68 year old male with CHF, admitted with hyponatremia, dizziness, seen and examined. Alert and orientedx3, ambulating well, denies sob or chest pains. Sodium today is 129. Discussed with DR Monson, plan to discharge home today. Advised to hold the lasix and demadex, follow up with DR Monson on Monday.
--- NOTE | 2018-07-08 20:12 | CARD ---
APPROVED REPORT Date of service: 07/05/2018 EKG Measurement Heart [id number] <Conclusion> Normal sinus rhythm Nonspecific intraventricular block Cannot rule out Anterior infarct, age undetermined Abnormal ECG
== END 2018-07-07 15:45 | disposition home or self-care (01) ==
LOC: C.ER 12:14 → C.9E 16:02 → C.6T 17:19
PROVIDERS: ADMIT Internal Medicine; ATTEND Internal Medicine
DX: I50.20 Unspecified systolic (congestive) heart failure (principal); E03.9 Hypothyroidism, unspecified; I13.0 Hypertensive heart and chronic kidney disease with heart failure and stage 1 through stage 4 chronic kidney disease, or unspecified chronic kidney disease; E11.22 Type 2 diabetes mellitus with diabetic chronic kidney disease; N18.3 Chronic kidney disease, stage 3 (moderate); J44.9 Chronic obstructive pulmonary disease, unspecified; I48.91 Unspecified atrial fibrillation; G47.33 Obstructive sleep apnea (adult) (pediatric); Z79.4 Long term (current) use of insulin
CPT/HCPCS: 36415; 71045; 80048; 80053; 80076; 81001; 82550; 82553; 82948; 83735; 83880; 84100; 84145; 84439; 84443; 84484; 85025; 85610; 85730; 87040; 87804; 93005; 97116; 97161; 99285; G0378; G8978; G8979; G8980

== ENCOUNTER 2018-07-22 00:36 | Observation (INO) | payer OTHER ==
[2018-07-22 00:37] VITALS: PULSE 87; BMI 27.4
[2018-07-22 01:28] LABS: BASO # 0.1 K/uL (0.0-0.2); BASO % 0.6 % (0.0-2.0); EOS # 0.2 K/uL (0.0-0.7); EOS % 2.3 % (0.0-4.0); HEMOGLOBIN 14.9 g/dL (12.0-18.0); LYMPH # 1.3 K/uL (1.0-4.3); LYMPH % 14.3 % (20.0-40.0); MEAN CORPUSCULAR HEMOGLOBIN 28.8 pg (27.0-31.0); MEAN CORPUSCULAR HGB CONC 33.1 g/dL (33.0-37.0); MEAN PLATELET VOLUME 8.3 fL (7.2-11.7); MONO # 0.8 K/uL (0.0-0.8); MONO % 8.7 % (0.0-10.0); NEUT # 6.6 K/uL (1.8-7.0); NEUT % 74.1 % (50.0-75.0); NRBC % 0.2 % (0.0-2.0); RBC 5.17 Mil/uL (4.40-5.90); RED CELL DISTRIBUTION WIDTH 18.5 % (11.5-14.5)
[2018-07-22 02:01] LABS: ALB/GLOB RATIO 1.5 (1.0-2.1); ALBUMIN 3.8 g/dL (3.5-5.0); ALT/SGPT 54 U/L (21-72); AST/SGOT 43 U/L (17-59); BLOOD UREA NITROGEN 19 mg/dL (9-20); GFR NON-AFRICAN AMERICAN 55; LIPASE 37 U/L (23-300)
[2018-07-22 02:04] LABS: B-TYPE NATRIURETIC PEPTIDE 7190 pg/mL (0-900)
[2018-07-22 02:06] LABS: INR 1.3
[2018-07-22 03:52] LABS: SQUAMOUS EPITHIAL < 1 /hpf (0-5); URINE BILIRUBIN NEGATIVE (NEGATIVE); URINE CLARITY Clear (Clear); URINE COLOR Yellow (YELLOW); URINE GLUCOSE (UA) NORMAL (Normal); URINE LEUKOCYTE ESTERASE NEG Leu/uL (Negative); URINE PROTEIN 1+ mg/dL (NEGATIVE); URINE UROBILINOGEN NORMAL mg/dL (0.2-1.0)
[2018-07-22 03:53] LABS: URINE BLOOD NEGATIVE (NEGATIVE)
[2018-07-22] MEDS: Albuterol-Ipratrop 3 mg / 0.5 (3 ml) UD INH SCH ×5 (06:07→19:15)
--- NOTE | 2018-07-22 06:34 | C.PDOC ---
History Of Present Illness 68-year-old male presents to the emergency department with complaints of shortness of breath over the last few days as well as right sided abdominal pain. Patient reports positive dyspnea on exertion but denies chest pain, recent travel sick contact. Patient states that he is compliant with his medications. Time Seen by Provider: 07/22/18 00:57 Chief Complaint (Nursing): Shortness Of Breath History Per: Patient History/Exam Limitations: no limitations Onset/Duration Of Symptoms: Days Current Symptoms Are (Timing): Still Present Quality: "Pain" Associated Symptoms: Other (shortness of breath, abdominal pain). denies: Fever, Chills, Sweating, Chest Pain Past Medical History Reviewed: Historical Data, Nursing Documentation, Vital Signs Vital Signs: Last Vital Signs Temp 97.7 F 07/22/18 04:25 Pulse 83 07/22/18 04:25 Resp 20 07/22/18 04:25 BP 120/83 07/22/18 04:25 Pulse Ox 98 07/22/18 04:25 - Medical History PMH: Asthma, Atrial Fibrillation, CHF, COPD, HTN Denies: Chronic Kidney Disease Surgical History: Pacemaker (15 yrs ago) - [employer] Procedures ASSISTANCE WITH RESPIRATORY VENTILATION, 24-96 HRS, CPAP (11/21/17) Family History: States: No Known Family Hx - Social History Hx Alcohol Use: No Hx Substance Use: No - Immunization History Hx Tetanus Toxoid Vaccination: No Hx Influenza Vaccination: No Hx Pneumococcal Vaccination: No Review Of Systems Except As Marked, All Systems Reviewed And Found Negative. Constitutional: Negative for: Fever, Chills, Weakness Cardiovascular: Negative for: Chest Pain Respiratory: Positive for: Shortness of Breath, SOB with Excertion. Negative for: Cough Gastrointestinal: Positive for: Abdominal Pain Physical Exam - Physical Exam Appears: Non-toxic, No Acute Distress Skin: Normal Color, Warm, Dry Head: Atraumatic, Normacephalic Eye(s): bilateral: Normal Inspection, PERRL, EOMI Nose: Normal Oral Mucosa: Moist Neck: Normal, Supple Chest: Symmetrical, No Tenderness Cardiovascular: Rhythm Regular, No Murmur Respiratory: Rales (rales at bases), No Rhonchi, No Stridor, No Wheezing Gastrointestinal/Abdominal: Soft, No Tenderness, No Guarding, No Rebound Extremity: Normal ROM Neurological/Psych: Oriented x3, Normal Speech, Normal Cognition ED Course And Treatment - Laboratory Results Result Diagrams: 07/22/18 01:25 07/22/18 01:25 Lab Results: PT 14.0 SECONDS (9.7-12.2) H 07/22/18 01:25 INR 1.3 07/22/18 01:25 APTT 35 SECONDS (21-34) H 07/22/18 01:25 Troponin I 0.0210 ng/mL (0.00-0.120) 07/22/18 01:25 NT-Pro-B Natriuret Pep 7190 pg/mL (0-900) H 07/22/18 01:25 Total Bilirubin 0.8 mg/dL (0.2-1.3) 07/22/18 01:25 AST 43 U/L (17-59) 07/22/18 01:25 ALT 54 U/L (21-72) 07/22/18 01:25 Alkaline Phosphatase 102 U/L (38-126) 07/22/18 01:25 Total Protein 6.3 g/dL (6.3-8.3) 07/22/18 01:25 Albumin 3.8 g/dL (3.5-5.0) 07/22/18 01:25 Globulin 2.5 gm/dL (2.2-3.9) 07/22/18 01:25 Albumin/Globulin Ratio 1.5 (1.0-2.1) 07/22/18 01:25 Lipase 37 U/L (23-300) 07/22/18 01:25 Urine Color Yellow (YELLOW) 07/22/18 03:40 Urine Clarity Clear (Clear) 07/22/18 03:40 Urine pH 5.0 (5.0-8.0) 07/22/18 03:40 Ur Specific Fertile 1.011 (1.003-1.030) 07/22/18 03:40 Urine Protein 1+ mg/dL (NEGATIVE) H 07/22/18 03:40 Urine Glucose (UA) Normal mg/dL (Normal) 07/22/18 03:40 Urine Ketones Negative mg/dL (NEGATIVE) 07/22/18 03:40 Urine Blood Negative (NEGATIVE) 07/22/18 03:40 Urine Nitrate Negative (NEGATIVE) 07/22/18 03:40 Urine Bilirubin Negative (NEGATIVE) 07/22/18 03:40 Urine Urobilinogen Normal mg/dL (0.2-1.0) 07/22/18 03:40 Ur Leukocyte Esterase Neg Joy/uL (Negative) 07/22/18 03:40 Urine WBC (Auto) 1 /hpf (0-5) 07/22/18 03:40 Urine RBC (Auto) 3 /hpf (0-3) 07/22/18 03:40 Ur Squamous Epith Cells < 1 /hpf (0-5) 07/22/18 03:40 O2 Sat by Pulse Oximetry: 98 (RA) Pulse Ox Interpretation: Normal - CT Scan/US CT Abdomen and Pelvis Other Rad Studies (CT/US): Read By Radiologist, Radiology Report Reviewed CT/US Interpretation: IMPRESSION: Moderate cardiomegaly, unchanged. Mild bilateral pleural effusions. Passive atelectatic airspace disease of the lower lobes. AICD is in good position. Bilateral fat containing inguinal hernias without incarceration. Mild prostatomegaly. Mild diffuse thickening of the bladder. Uncomplicated colonic diverticulosis. Mild diffuse thickening of the gallbladder. 1.3 cm left renal cyst. Medical Decision Making Medical Decision Making: Plan: CT Abdomen and Pelvis EKG Chemistry Hematology CXR Lasix urine Culture Urinalysis Spoke to Dr. Monson who agreed to admit the patient to telemetry. Disposition - Disposition Disposition: HOSPITALIZED Disposition Time: 03:15 Condition: STABLE - Clinical Impression Clinical Impression: CHF exacerbation - Scribe Statement The provider has reviewed the documentation as recorded by the Scribe (Anatoly Ramirez) Provider Attestation: All medical record entries made by the Scribe were at my direction and personally dictated by me. I have reviewed the chart and agree that the record accurately reflects my personal performance of the history, physical exam, medical decision making, and the department course for this patient. I have also personally directed, reviewed, and agree with the discharge instructions and disposition.
--- NOTE | 2018-07-22 07:20 | CT ---
Date of service: 07/22/2018 PROCEDURE: CT Abdomen and Pelvis without intravenous contrast HISTORY: right-sided abdominal pain COMPARISON: Comparison is made with 03/31/2018 TECHNIQUE: Axial and reformatted coronal and sagittal CT images of the abdomen and pelvis were obtained without IV or oral contrast administration. Contrast dose: . 0 Radiation dose: Total exam DLP = 540.46 mGy-cm. This CT exam was performed using one or more of the following dose reduction techniques: Automated exposure control, adjustment of the mA and/or kV according to patient size, and/or use of iterative reconstruction technique. FINDINGS: LOWER THORAX: Bilateral pleural effusion and cardiomegaly are noted. Pacemaker wires are seen extending to the heart. Again noted is 6 millimeter nodule at the right lung lower lobe image 10 series 5. LIVER: Mild hepatomegaly is again noted. GALLBLADDER AND BILE DUCTS: No evidence of acute cholecystitis. PANCREAS: Unremarkable. No gross lesion or ductal dilatation. SPLEEN: Unremarkable. ADRENALS: Unremarkable. No mass. KIDNEYS AND URETERS: Heterogeneous attenuation of the right kidney is noted. Nonspecific bilateral perinephric stranding noted more prominent on the right. No evidence of obstructing renal calculi. There is 1.6 centimeter left renal cyst noted. VASCULATURE: Unremarkable. No aortic aneurysm. Foci of atherosclerotic calcification are noted. BOWEL: Colonic diverticulosis are noted without evidence of diverticulitis. No evidence of high-grade bowel obstruction. APPENDIX: No evidence of appendicitis. PERITONEUM: Unremarkable. No free fluid. No free air. LYMPH NODES: Unremarkable. No enlarged lymph nodes. BLADDER: Diffuse urinary bladder wall thickening is noted. REPRODUCTIVE: Mildly enlarged prostate is also noted. BONES: No acute fracture. OTHER FINDINGS: Bilateral inguinal hernia contains mildly stranding fat. IMPRESSION: Nonspecific bilateral perinephric renal stranding more prominent on the right. Correlate clinically for infectious process. No evidence of renal calculi or hydronephrosis. Cardiomegaly and bilateral pleural effusions are again noted. Diffuse urinary bladder wall thickening noted. Additional findings as discussed above. Preliminary report was submitted by [facility] Radiology contains concordant findings.
[2018-07-22] MEDS: (Novolog) Insulin Aspart, Recombinant 100 u/ml 10 ml vial SC SCH ×4 (07:41→21:05)
[2018-07-22] MEDS: (Lantus) Insulin Glargine, Recombinant SC SCH (10:47)
--- NOTE | 2018-07-22 10:51 | RAD ---
Date of service: 07/22/2018 PROCEDURE: CHEST RADIOGRAPH, 1 VIEW HISTORY: SOB COMPARISON: Comparison is made with 07/05/2018 FINDINGS: LUNGS: Interval appearance of [id number] pulmonary vascular congestion. PLEURA: No pneumothorax or pleural fluid seen. CARDIOVASCULAR: No aortic atherosclerotic calcification present. The cardiac silhouette is normal in size. Single wire left-sided pacemaker or AICD is seen in place. OSSEOUS STRUCTURES: No significant abnormalities. VISUALIZED UPPER ABDOMEN: Normal. OTHER FINDINGS: None. IMPRESSION: Suspicious for pulmonary vascular congestion.
--- NOTE | 2018-07-22 23:29 | HP ---
HISTORY OF PRESENT ILLNESS: The patient is a 68-year-old male with history of nonischemic cardiomyopathy, status post ICD placement; type 2 diabetes mellitus; chronic kidney disease, presented to emergency room with symptoms of shortness of breath, found to be in pulmonary congestion and proBNP of 7190. BUN is 19 and creatinine 1.3. The patient was given diuretics and admitted for further management. Other review of system is negative. ALLERGIES: POSITIVE FOR PENICILLIN. MEDICATIONS: Medications were reviewed as per MAR and ordered. PAST MEDICAL HISTORY: As above. SOCIAL HISTORY: Ex-smoker. No EtOH or substance abuse. FAMILY HISTORY: Noncontributory. PHYSICAL EXAMINATION: GENERAL: The patient is in bed, not in any cardiopulmonary distress at time of this examination. VITAL SIGNS: Blood pressure 117/77, temperature 97.7, respiratory rate 18 and pulse 78. HEENT: Pupils equal and reactive to light. Normal-appearing mucosa of the conjunctivae, oropharynx and nasal membrane mucosa. NECK: Supple. No JVD. No carotid bruit. No lymph nodes. No thyromegaly. CHEST AND LUNGS: Bilateral basilar rales. CARDIOVASCULAR SYSTEM: PMI not localized. S1 and S2. No additional sounds. ABDOMEN: Normoactive bowel sounds. No tenderness. No organomegaly. No masses. EXTREMITIES: No cyanosis, no clubbing, no edema. CENTRAL NERVOUS SYSTEM: Alert, awake, oriented x2. No neurological deficit could be appreciated. ASSESSMENT: 1. Acute exacerbation of systolic and diastolic congestive heart failure, likely secondary to noncompliance to fluid restriction. 2. Status post implantable cardioverter-defibrillator placement. 3. Hypertension. 4. Type 2 diabetes mellitus. 5. Chronic kidney disease. PLAN: Continue current diuretics as ordered and if the patient is stable, we will discharge him in the morning. Carlos Monson MD
[2018-07-22 23:57] VITALS: RESP 20
[2018-07-23] MEDS: Albuterol-Ipratrop 3 mg / 0.5 (3 ml) UD INH SCH ×3 (01:11→13:34)
[2018-07-23 04:34] VITALS: O2SAT 94
[2018-07-23 07:56] VITALS: TEMP 98
[2018-07-23 08:40] VITALS: PULSE 87
--- NOTE | 2018-07-23 09:18 | CP.PCM.CON ---
History of Present Illness - History of Present Illness History of Present Illness: CARDIOLOGY CONSULT NOTE Reason for consult: CHF HPI: Pt is a 68 yo man with hx of NICM EF 25-30%; single chamber ICD implant ([employer]) ; PAF (on Eliquis); HTN; asthma; who presents with exertional SOB for past few days. No orhtopnea, PND, leg edema, chest pain, palpitations, dizziness or syncope. He came to [facility] and found to have pulmonary vascular congestion on CXR with BNP 7190. Trop neg x 1. Started on IV lasix. Feels very well today and wants to go home. PMH: as above SH: no tob/etoh/drugs FH: no premature CAD Meds: reviewed All: reviewed ROS: negative unless stated above Past Patient History - Infectious Disease Hx of Infectious Diseases: None - Past Medical History & Family History Past Medical History?: Yes - Past Social History Smoking Status: Former Smoker - CARDIAC Hx Atrial Fibrillation: Yes Hx Congestive Heart Failure: Yes Hx Hypertension: Yes Hx Pacemaker: Yes (15 yrs ago) - PULMONARY Hx Asthma: Yes Hx Chronic Obstructive Pulmonary Disease (COPD): Yes - NEUROLOGICAL Hx Neurological Disorder: No - HEENT Hx HEENT Problems: No - RENAL Hx Chronic Kidney Disease: No - ENDOCRINE/METABOLIC Hx Endocrine Disorders: Yes Hx Diabetes Mellitus Type 2: Yes - HEMATOLOGICAL/ONCOLOGICAL Hx Blood Disorders: No - INTEGUMENTARY Hx Dermatological Problems: No - MUSCULOSKELETAL/RHEUMATOLOGICAL Hx Musculoskeletal Disorders: No Hx Falls: No - GASTROINTESTINAL Hx Gastrointestinal Disorders: No - GENITOURINARY/GYNECOLOGICAL Hx Genitourinary Disorders: No - PSYCHIATRIC Hx Substance Use: No - SURGICAL HISTORY Other/Comment: Pacemaker insertion 15 yrs ago - ANESTHESIA Hx Anesthesia: Yes Hx Anesthesia Reactions: No Hx Malignant Hyperthermia: No Meds Allergies/Adverse Reactions: Allergies Allergy/AdvReac Type Severity Reaction Status Date / Time Penicillins Allergy Verified 05/05/18 23:32 - Medications Medications: Current Medications Albuterol/Ipratropium (Duoneb 3 Mg/0.5 Mg (3 Ml) Ud) 3 ml INH RQ6 [facility] Last Admin: 07/23/18 01:11 Dose: 3 ml Apixaban (Eliquis) 2.5 mg PO BID [facility] Last Admin: 07/22/18 17:00 Dose: 2.5 mg Bisoprolol Fumarate (Zebeta) 5 mg PO DAILY [facility] Last Admin: 07/22/18 11:09 Dose: 5 mg Furosemide (Lasix) 20 mg IVP BID [facility] Last Admin: 07/22/18 17:00 Dose: 20 mg Insulin Aspart (Novolog) 1 unit SC ACHS [facility]; Protocol Last Admin: 07/22/18 21:05 Dose: Not Given Insulin Glargine (Lantus) 20 unit SC DAILY [facility] Last Admin: 07/22/18 10:47 Dose: 20 units Losartan Potassium (Cozaar) 25 mg PO DAILY [facility] Last Admin: 07/22/18 10:45 Dose: 25 mg Rosuvastatin Calcium (Crestor) 20 mg PO HS [facility] Last Admin: 07/22/18 21:38 Dose: 20 mg Spironolactone (Aldactone) 25 mg PO DAILY [facility] Last Admin: 07/22/18 10:45 Dose: 25 mg Physical Exam - Constitutional Appears: Well - Head Exam Head Exam: ATRAUMATIC - Eye Exam Eye Exam: Normal appearance - ENT Exam ENT Exam: Mucous Membranes Moist - Respiratory Exam Respiratory Exam: Clear to Auscultation Bilateral. absent: Rales, Rhonchi, Wheezes - Cardiovascular Exam Cardiovascular Exam: REGULAR RHYTHM, +S1, +S2. absent: Systolic Murmur - GI/Abdominal Exam GI & Abdominal Exam: Soft. absent: Tenderness - Extremities Exam Extremities exam: Negative for: pedal edema - Neurological Exam Neurological exam: Oriented x3 - Psychiatric Exam Psychiatric exam: Normal Mood - Skin Skin Exam: Warm Results - Vital Signs Recent Vital Signs: Last Vital Signs Temp 98.0 F 07/23/18 07:00 Pulse 87 07/23/18 08:30 Resp 20 07/23/18 07:00 BP 114/70 07/23/18 07:00 Pulse Ox 94 L 07/23/18 08:30 - Labs Result Diagrams: 07/22/18 01:25 07/22/18 01:25 Labs: Laboratory Results - last 24 hr 07/22/18 07/23/18 16:32 06:23 POC Glucose (mg/dL) 83 129 H - Impressions Impression: EKG: SR, PVC, NSST's Assessment & Plan - Assessment and Plan (Free Text) Assessment: 1. Acute on chronic systolic HF -- better now, euvolemic 2. NICM EF 25-30% 3. Single chamber ICD implant ([employer]) 4. PAF -- currently in sinus, on ELiquis 2.5mg bid Plan: 1. Change to PO lasix 20mg BID 2. Increase Eliquis to 5mg BID, since Cr is < 1.5 and weight is > 60kg 3. Cont other cardiac meds CV stable for discharge home as pt is euvolemic May follow up with Dr. Tubbs in 1-2 weeks
[2018-07-23 09:59] VITALS: BP 154/74
[2018-07-23] MEDS: (Lantus) Insulin Glargine, Recombinant SC SCH (10:00)
[2018-07-23] MEDS: (Novolog) Insulin Aspart, Recombinant 100 u/ml 10 ml vial SC SCH (11:53)
--- NOTE | 2018-07-23 13:14 | PCM.HF ---
Heart Failure Core Measure Beta-Jean Claude Prescribed: Bisoprolol Angiotensin II Receptor Jean Claude Prescribed: Yes AnticoagulationTherapy for Atrial Fibrillation/Atrialflutter: Yes
--- NOTE | 2018-07-23 17:23 | CP.PCM.PN ---
Objective - Vital Signs/Intake and Output Vital Signs (last 24 hours): Temp Pulse Resp BP Pulse Ox 98.0 F 87 20 154/74 H 94 L 07/23/18 07:00 07/23/18 08:30 07/23/18 07:00 07/23/18 09:58 07/23/18 11:45 Intake and Output: 07/23/18 07/23/18 06:59 18:59 Intake Total 300 Balance 300 - Labs Labs: 07/22/18 01:25 07/22/18 01:25 PT 14.0 SECONDS (9.7-12.2) H 07/22/18 01:25 INR 1.3 07/22/18 01:25 APTT 35 SECONDS (21-34) H 07/22/18 01:25 Assessment and Plan - Assessment and Plan (Free Text) Assessment: 68 year old male admitted with CHF exacerbation, seen and examined. Alert and orientedx3, ambulatory, denies sob or chest pains.
== END 2018-07-23 14:31 | disposition home or self-care (01) ==
LOC: C.ER 00:36 → C.9E 03:39 → C.6T 03:55
PROVIDERS: ADMIT Internal Medicine; ATTEND Internal Medicine
DX: I13.0 Hypertensive heart and chronic kidney disease with heart failure and stage 1 through stage 4 chronic kidney disease, or unspecified chronic kidney disease (principal); I50.43 Acute on chronic combined systolic (congestive) and diastolic (congestive) heart failure; N18.9 Chronic kidney disease, unspecified; Z79.01 Long term (current) use of anticoagulants; Z87.891 Personal history of nicotine dependence; Z91.19 Patient's noncompliance with other medical treatment and regimen; Z95.810 Presence of automatic (implantable) cardiac defibrillator; E11.22 Type 2 diabetes mellitus with diabetic chronic kidney disease; I42.9 Cardiomyopathy, unspecified; I48.0 Paroxysmal atrial fibrillation; J44.9 Chronic obstructive pulmonary disease, unspecified
CPT/HCPCS: 71045; 74176; 80053; 81001; 82948; 83690; 83880; 84484; 85025; 85610; 85730; 87086; 94640; 96374; 96376; 97116; 97161; 99285; G0378; G8978; G8979; G8980; J1940

== ENCOUNTER 2018-08-02 10:38 | Outpatient (CLI) | payer OTHER | END 2018-08-02 10:39 | disposition home or self-care (01) | LOC: C.CTH 10:38 | DX: R91.8 Other nonspecific abnormal finding of lung field (principal) ==

== ENCOUNTER 2018-08-16 10:06 | Emergency (ER) | payer OTHER | END 2018-08-16 15:17 | disposition home or self-care (01) | LOC: C.ER 10:06 | CPT/HCPCS: 71045; 80053; 81001; 82550; 82553; 84484; 85025; 85610; 85730; 93005; 96374; 99284; J2405; J7040 ==

== ENCOUNTER 2018-08-16 19:31 | Inpatient (IN) | payer OTHER | END 2018-09-05 16:21 | disposition home or self-care (01) | LOC: C.5S 08-24 09:59 → C.9I 08-20 10:26 → C.ER 19:31 → C.9I 08-23 20:12 → C.6T 22:13 ==